=== PATIENT | female | born 1935 | race Hispanic/Latino ===

== ENCOUNTER 2017-11-06 09:01 | Emergency (ER) | payer MEDICARE ==
[~2017-11-06 09:01] MED LIST: ALBUHFA IH; ASPI-1181 PO; EZET10 PO; FLUT1AER IH; ICOS1CAP PO; LOSA100T20 PO; MELO-108 PO; METF-444 PO; OMEP20CA10 PO; POTA20TA12 PO; PRAV20TA4 PO; [UNRECOGNIZED DRUG - CODE] PO
[2017-11-06] MEDS ORDERED: CYCLOBENZAPRINE HCL 10 MG TABLET ONE (09:25)
[2017-11-06] MEDS ORDERED: HYDROCODONE/ACETAMINOPHEN 5/325 MG TAB ONE (09:26)
== END 2017-11-06 12:43 | disposition home or self-care (01) ==
LOC: EDH 09:01
DX: M79.1 Myalgia (principal); M54.9 Dorsalgia, unspecified; E11.9 Type 2 diabetes mellitus without complications; E78.5 Hyperlipidemia, unspecified; I10 Essential (primary) hypertension
CPT/HCPCS: 71045

== ENCOUNTER → 2017-12-23 | Outpatient (CLI) | payer MEDICARE | END | disposition home or self-care (01) | LOC: RAH 11:57 | PROVIDERS: ATTEND Family Medicine | DX: M47.896 Other spondylosis, lumbar region (principal); I70.0 Atherosclerosis of aorta; K21.9 Gastro-esophageal reflux disease without esophagitis; Z90.49 Acquired absence of other specified parts of digestive tract | CPT/HCPCS: 72100 ==

== ENCOUNTER 2018-01-20 08:13 | Emergency (ER) | payer MEDICARE ==
[2018-01-20] MEDS ORDERED: CEFTRIAXONE SODIUM 1 GM ONE (08:50)
[2018-01-20] MEDS ORDERED: DEXAMETHASONE SOD PHOSPHATE 10MG/ML 1ML VIAL ONE (08:50)
[2018-01-20] MEDS ORDERED: SODIUM CHLORIDE 0.9% 1000ML 1,000 ML IV ONE (08:50)
[2018-01-20] MEDS ORDERED: SODIUM CHLORIDE 0.9% 50 ML IV ONE (08:51)
[2018-01-20] MEDS ORDERED: IPRATROPIUM/ALBUTEROL SULFATE 3 ML SOLUTION IH ONE (09:11)
[2018-01-20 09:13] LABS: BASOPHILS % (AUTO) 0.4 % (0.0-5.0); EOSINOPHILS % (AUTO) 2.5 % (0.0-8.0); HEMATOCRIT 44.7 % (36-48); LYMPHOCYTES % (AUTO) 35.6 % (21.0-51.0); MEAN CORPUSCULAR HEMOGLOBIN 32.1 pg (27.0-33.0); MEAN CORPUSCULAR HGB CONC 33.2 g/dL (32.0-36.0); MEAN CORPUSCULAR VOLUME 96.9 fL (79-99); MONOCYTES % (AUTO) 8.6 % (3.0-13.0); NEUTROPHILS % (AUTO) 52.9 % (40.0-77.0); NUCLEATED RED BLOOD CELLS 0.1 % (0.0-0.19); PLATELET COUNT (AUTO) 222 K/uL (130-400); RED BLOOD CELL COUNT(AUTO) 4.62 MIL/uL (4.00-5.50); RED CELL DISTRIBUTION WIDTH 13.8 % (11.0-15.5); WHITE BLOOD COUNT (AUTO) 5.9 K/uL (4.8-10.8)
[2018-01-20 09:21] LABS: POTASSIUM 3.5 mmol/L (3.5-5.1)
[2018-01-20 09:25] LABS: ALBUMIN 4.2 g/dL (3.5-5.0); BILIRUBIN,DIRECT 0.1 mg/dL (0.0-0.3); BILIRUBIN,TOTAL 0.4 mg/dL (0.2-1.0); TOTAL PROTEIN, SERUM 8.3 g/dL (6.0-8.3)
== END 2018-01-20 10:51 | disposition home or self-care (01) ==
LOC: EDH 08:13
DX: J20.9 Acute bronchitis, unspecified (principal); I10 Essential (primary) hypertension; E11.9 Type 2 diabetes mellitus without complications; E78.5 Hyperlipidemia, unspecified; Z90.49 Acquired absence of other specified parts of digestive tract; Z95.0 Presence of cardiac pacemaker
CPT/HCPCS: 36415; 71046; 80048; 80076; 82550; 84484; 85025; 87804 ×2; 93005; 94640; 96374; 96375; 99284; J0696; J1100; J7030

== ENCOUNTER 2018-03-20 08:26 | Emergency (ER) | payer MEDICARE ==
[~2018-03-20 08:26] MED LIST changes: -LOSA100T20 PO; +LOSA100T58 PO
[2018-03-20 09:10] LABS: EOSINOPHILS % (AUTO) 4.4 % (0.0-8.0); HEMATOCRIT 39.7 % (36-48); LYMPHOCYTES % (AUTO) 35.1 % (21.0-51.0); MEAN CORPUSCULAR HEMOGLOBIN 32.7 pg (27.0-33.0); NEUTROPHILS % (AUTO) 48.5 % (40.0-77.0); PLATELET COUNT (AUTO) 157 K/uL (130-400); RED BLOOD CELL COUNT(AUTO) 4.14 MIL/uL (4.00-5.50); RED CELL DISTRIBUTION WIDTH 14.1 % (11.0-15.5); WHITE BLOOD COUNT (AUTO) 3.5 K/uL (4.8-10.8)
[2018-03-20 09:22] LABS: INR 0.95 (0.85-1.15); PARTIAL THROMBOPLASTIN TIME 26.4 SEC (26.3-35.5)
[2018-03-20 09:35] LABS: CREATININE 0.9 mg/dL (0.5-1.5); POTASSIUM 3.6 mmol/L (3.5-5.1)
[2018-03-20 09:46] LABS: ALBUMIN 3.7 g/dL (3.5-5.0); BILIRUBIN,TOTAL 0.6 mg/dL (0.2-1.0); TOTAL PROTEIN, SERUM 7.3 g/dL (6.0-8.3)
[2018-03-20] MEDS ORDERED: CLONIDINE HCL 0.1 MG TABLET ONE (09:49)
== END 2018-03-20 10:26 | disposition home or self-care (01) ==
LOC: EDH 08:26
DX: R07.89 Other chest pain (principal); E11.9 Type 2 diabetes mellitus without complications; E78.5 Hyperlipidemia, unspecified; I10 Essential (primary) hypertension; Z95.0 Presence of cardiac pacemaker
CPT/HCPCS: 36415; 71045; 80053; 83874; 84484; 85025; 85610; 85730; 93005

== ENCOUNTER 2018-04-15 07:00 | Observation (INO) | payer MEDICARE ==
[2018-04-13 12:11] VITALS: BP 146/72
[2018-04-13 12:25] LABS: BASOPHILS % (AUTO) 0.4 % (0.0-5.0); EOSINOPHILS % (AUTO) 2.2 % (0.0-8.0); HEMATOCRIT 39.6 % (36-48); LYMPHOCYTES % (AUTO) 29.8 % (21.0-51.0); MEAN CORPUSCULAR HEMOGLOBIN 32.2 pg (27.0-33.0); MEAN CORPUSCULAR HGB CONC 33.1 g/dL (32.0-36.0); MEAN CORPUSCULAR VOLUME 97.5 fL (79-99); MONOCYTES % (AUTO) 9.6 % (3.0-13.0); PLATELET COUNT (AUTO) 162 K/uL (130-400); RED BLOOD CELL COUNT(AUTO) 4.07 MIL/uL (4.00-5.50); WHITE BLOOD COUNT (AUTO) 5.2 K/uL (4.8-10.8)
[2018-04-13 12:27] LABS: POTASSIUM 4.3 mmol/L (3.5-5.1)
[2018-04-13 12:31] LABS: INR 0.96 (0.85-1.15); PARTIAL THROMBOPLASTIN TIME 27.1 SEC (26.3-35.5); PROTHROMBIN TIME 10.1 SEC (9.6-11.6)
[~2018-04-15] VITALS: Ht 154.9 cm; Wt 49.9 kg
[2018-04-15] VITALS (12 sets, daily range): BP systolic 115–170; BP diastolic 55–70
[~2018-04-15 07:00] MED LIST changes: -ALBUHFA IH; +AMLO5TAB9 PO; +CEFAZOLIN SODIUM 1 GM VIAL IVP SCH; -FLUT1AER IH; -ICOS1CAP PO; +MAGN400T40 PO; +PIOG30TA70 PO; +POTA-79 PO; -POTA20TA12 PO; -PRAV20TA4 PO; -[UNRECOGNIZED DRUG - CODE] PO
[2018-04-15] MEDS: SODIUM CHLORIDE 0.9% 1000ML 1,000 ML IV SCH ×2 (07:50→16:08)
--- NOTE | 2018-04-15 11:01 | NUR ---
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
[2018-04-15] MEDS ORDERED: CEFAZOLIN SODIUM 1 GM VIAL ONE (11:30)
[2018-04-15] MEDS ORDERED: LIDOCAINE HCL 1% MDV 50ML VIAL ONE (11:31)
[2018-04-15] MEDS ORDERED: BUPIVACAINE/PF 0.25% 30ML VIAL IJ ONE (11:36)
[2018-04-15] MEDS ORDERED: MIDAZOLAM HCL 1 MG/ML 2ML VIAL ONE (11:46)
[2018-04-15] MEDS ORDERED: MEPERIDINE-PF 25 MG/ML SYG ONE (11:47)
[2018-04-15] MEDS ORDERED: IODIXANOL 320 MG/ML 100 ML VIAL ONE (12:12)
[2018-04-15] MEDS ORDERED: ACETAMINOPHEN-CODEINE 300/30MG TAB PO PRN ×2 (13:00)
[2018-04-15] MEDS ORDERED: ACETAMINOPHEN 325 MG TAB PO PRN (13:00)
--- NOTE | 2018-04-15 14:30 | NUR ---
REPORT REPORT GIVEN PAM [place]. NO BLEEDING, NO HEMATOMA TO RIGHT UPPER CHEST.
[2018-04-15] MEDS: METFORMIN HCL 500 MG TABLET PO SCH (17:07)
--- NOTE | 2018-04-15 19:25 | NUR ---
Received bedside report ,pt S/P lead revision to PPM to right upper chest.Arm sling to right arm in place and pt. made aware of right arm mobility precautions and demonstrated understanding.Pt. denies chestpain or any discomfort.
[2018-04-15] MEDS ORDERED: EZETIMIBE 10 MG TAB PO SCH (21:00)
[2018-04-15] MEDS ORDERED: ASPIRIN 81 MG EC TAB PO SCH (21:00)
[2018-04-16 03:29] VITALS: BP 126/59
[2018-04-16 07:00] VITALS: BP 136/66
--- NOTE | 2018-04-16 07:19 | NUR ---
Dr. Lucero here and saw pt. ,he said pt. is going to have PPM interrogation today prior to discharge.No new order received.
[2018-04-16] MEDS: METFORMIN HCL 500 MG TABLET PO SCH (08:22)
[2018-04-16] MEDS ORDERED: PANTOPRAZOLE SODIUM 40 MG TABLET.DR PO SCH (09:00)
[2018-04-16] MEDS ORDERED: LOSARTAN 100 MG TABLET PO SCH (09:00)
[2018-04-16] MEDS ORDERED: MELOXICAM 7.5 MG TABLET PO SCH (09:00)
[2018-04-16] MEDS ORDERED: PIOGLITAZONE HCL 30 MG TAB PO SCH (09:00)
[2018-04-16] MEDS ORDERED: POTASSIUM CHLORIDE 20 MEQ ERTAB PO SCH (09:00)
[2018-04-16] MEDS ORDERED: AMLODIPINE BESYLATE 5 MG TAB PO SCH (09:00)
[2018-04-16] MEDS ORDERED: MAGNESIUM OXIDE 400 MG TABLET PO SCH (09:00)
== END 2018-04-16 11:20 | disposition home or self-care (01) ==
LOC: DAH 07:00 → DAHIP 07:01 → 2AH 15:04
PROVIDERS: ADMIT Internal Medicine; ATTEND Internal Medicine
DX: I44.30 Unspecified atrioventricular block (principal); E11.9 Type 2 diabetes mellitus without complications; E78.5 Hyperlipidemia, unspecified; I10 Essential (primary) hypertension; I25.10 Atherosclerotic heart disease of native coronary artery without angina pectoris; I49.5 Sick sinus syndrome; J44.9 Chronic obstructive pulmonary disease, unspecified; Z82.0 Family history of epilepsy and other diseases of the nervous system; Z82.3 Family history of stroke; Z82.49 Family history of ischemic heart disease and other diseases of the circulatory system; Z82.5 Family history of asthma and other chronic lower respiratory diseases; Z83.3 Family history of diabetes mellitus; Z95.0 Presence of cardiac pacemaker; Z79.01 Long term (current) use of anticoagulants
CPT/HCPCS: 33216; 36415; 71045; 80048; 82948 ×6; 85025; 85610; 85730; 93005; A4606; C1898; G0378 ×28; J0690; J2175; J2250; J3490 ×2; J7030; 99156; 99157; Q9967

== ENCOUNTER 2018-07-22 09:17 | Emergency (ER) | payer MEDICARE ==
[~2018-07-22 09:17] MED LIST changes: -CEFAZOLIN SODIUM 1 GM VIAL IVP SCH
[2018-07-22] MEDS ORDERED: SODIUM CHLORIDE 0.9% 1000ML 1,000 ML IV ONE (09:30)
[2018-07-22 09:56] LABS: BASOPHILS % (AUTO) 0.4 % (0.0-5.0); BILIRUBIN,URINE NEGATIVE (NEGATIVE); COLOR,URINE YELLOW (YELLOW); EOSINOPHILS % (AUTO) 1.2 % (0.0-8.0); GLUCOSE, URINE (UA) NEGATIVE (NEGATIVE); KETONES,URINE NEGATIVE (NEGATIVE); LEUKOCYTE ESTERASE ,URINE LARGE (NEGATIVE); LYMPHOCYTES % (AUTO) 16.8 % (21.0-51.0); MEAN CORPUSCULAR HEMOGLOBIN 34.3 pg (27.0-33.0); MEAN CORPUSCULAR HGB CONC 35.2 g/dL (32.0-36.0); MEAN CORPUSCULAR VOLUME 97.5 fL (79-99); MONOCYTES % (AUTO) 9.5 % (3.0-13.0); NEUTROPHILS % (AUTO) 72.1 % (40.0-77.0); NITRATE,URINE NEGATIVE (NEGATIVE); NUCLEATED RED BLOOD CELLS 0.1 % (0.0-0.19); OCCULT BLOOD,URINE MODERATE (NEGATIVE); PH,URINE 5.5 (5.0-8.0); PLATELET COUNT (AUTO) 166 K/uL (130-400); PROTEIN,URINE 30 mg/dL (NEGATIVE); RED BLOOD CELL COUNT(AUTO) 4.21 MIL/uL (4.00-5.50); RED CELL DISTRIBUTION WIDTH 13.5 % (11.0-15.5); UROBILINOGEN,URINE 0.2 mg/dL (0.2-1.0); WHITE BLOOD COUNT (AUTO) 7.7 K/uL (4.8-10.8)
[2018-07-22 10:02] LABS: CREATININE 1.1 mg/dL (0.5-1.5); POTASSIUM 3.6 mmol/L (3.5-5.1)
[2018-07-22 10:07] LABS: ALBUMIN 3.8 g/dL (3.5-5.0); APPEARANCE,URINE CLOUDY (CLEAR); BILIRUBIN,TOTAL 0.9 mg/dL (0.2-1.0)
[2018-07-22 10:08] LABS: WBC,URINE 26-50 /HPF (0-1)
[2018-07-22 10:09] LABS: BACTERIA,URINE Moderate /HPF (None Seen); SQUAMOUS EPITHELIAL CELL,UR 0-2 /HPF (0-2)
[2018-07-22] MEDS ORDERED: CEFTRIAXONE SODIUM 1 GM ONE (10:54)
== END 2018-07-22 12:27 | disposition home or self-care (01) ==
LOC: EDH 09:17
DX: N30.00 Acute cystitis without hematuria (principal); E86.0 Dehydration; E11.9 Type 2 diabetes mellitus without complications; I10 Essential (primary) hypertension; E78.5 Hyperlipidemia, unspecified; Z95.0 Presence of cardiac pacemaker
CPT/HCPCS: 36415; 80053; 81001; 83605; 85025; 87077; 87088; 87186; 96361; 96374; 99285; J0696; J7030

== ENCOUNTER 2018-12-13 15:59 | Emergency (ER) | payer MEDICARE ==
[~2018-12-13 15:59] MED LIST changes: -EZET10 PO; +EZET10TA13 PO; +OMEP-50 PO; -OMEP20CA10 PO
[2018-12-13] MEDS ORDERED: ALBUTEROL SULFATE 0.083% 2.5 MG/3 ML INH IH ONE (16:32)
[2018-12-13 17:06] LABS: BASOPHILS % (AUTO) 0.2 % (0.0-5.0); EOSINOPHILS % (AUTO) 0.3 % (0.0-8.0); LYMPHOCYTES % (AUTO) 10.3 % (21.0-51.0); MEAN CORPUSCULAR HEMOGLOBIN 33.3 pg (27.0-33.0); MEAN CORPUSCULAR HGB CONC 34.4 g/dL (32.0-36.0); MEAN CORPUSCULAR VOLUME 96.8 fL (79-99); MONOCYTES % (AUTO) 3.1 % (3.0-13.0); NEUTROPHILS % (AUTO) 86.1 % (40.0-77.0); NUCLEATED RED BLOOD CELLS 0.1 % (0.0-0.19); PLATELET COUNT (AUTO) 184 K/uL (130-400); RED BLOOD CELL COUNT(AUTO) 4.14 MIL/uL (4.00-5.50); RED CELL DISTRIBUTION WIDTH 14.4 % (11.0-15.5); WHITE BLOOD COUNT (AUTO) 7.8 K/uL (4.8-10.8)
[2018-12-13 17:12] LABS: CREATININE 1.2 mg/dL (0.5-1.5); POTASSIUM 3.8 mmol/L (3.5-5.1)
== END 2018-12-13 18:11 | disposition home or self-care (01) ==
LOC: EDH 15:59
DX: J20.8 Acute bronchitis due to other specified organisms (principal); E11.9 Type 2 diabetes mellitus without complications; I10 Essential (primary) hypertension; E78.5 Hyperlipidemia, unspecified; Z95.0 Presence of cardiac pacemaker
CPT/HCPCS: 36415; 71046; 80048; 84484; 85025; 87804; 94640; 96374

== ENCOUNTER 2018-12-23 08:17 | Inpatient (IN) | payer MEDICARE ==
[~2018-12-23] VITALS: Ht 152.4 cm; Wt 49.9 kg
[2018-12-23] MEDS ORDERED: IPRATROPIUM/ALBUTEROL SULFATE 3 ML SOLUTION IH ONE ×2 (09:08→11:32)
[2018-12-23 09:22] LABS: BASOPHILS % (AUTO) 0.3 % (0.0-5.0); HEMATOCRIT 38.1 % (36-48); LYMPHOCYTES % (AUTO) 11.1 % (21.0-51.0); MEAN CORPUSCULAR HEMOGLOBIN 32.9 pg (27.0-33.0); MEAN CORPUSCULAR HGB CONC 33.6 g/dL (32.0-36.0); MEAN CORPUSCULAR VOLUME 97.8 fL (79-99); MONOCYTES % (AUTO) 7.5 % (3.0-13.0); NEUTROPHILS % (AUTO) 81.1 % (40.0-77.0); PLATELET COUNT (AUTO) 152 K/uL (130-400); RED CELL DISTRIBUTION WIDTH 14.3 % (11.0-15.5); WHITE BLOOD COUNT (AUTO) 13.4 K/uL (4.8-10.8)
[2018-12-23 09:31] LABS: CREATININE 1.1 mg/dL (0.5-1.5); POTASSIUM 4.2 mmol/L (3.5-5.1)
[2018-12-23 09:36] LABS: ALBUMIN 3.4 g/dL (3.5-5.0); BILIRUBIN,TOTAL 0.4 mg/dL (0.2-1.0); TOTAL PROTEIN, SERUM 6.7 g/dL (6.0-8.3)
[2018-12-23] MEDS ORDERED: METHYLPREDNISOLONE SOD SUCC 125MG/2ML VIAL ONE (12:19)
[2018-12-23] MEDS ORDERED: LEVOFLOXACIN 500 MG/D5W 100 ML 100 ML ONE (16:55)
[2018-12-23 17:20] VITALS: BP 162/60
--- NOTE | 2018-12-23 17:39 | NUR ---
RT NOTIFIED ABOUT DUONED Q4 ORDER.
[2018-12-23] MEDS ORDERED: IPRATROPIUM/ALBUTEROL SULFATE 3 ML SOLUTION IH PRN (18:00)
[2018-12-23] MEDS ORDERED: AMOX500C2 PO (18:02)
[2018-12-23] MEDS ORDERED: PRAV20TA4 PO ×2 (18:02)
[2018-12-23] MEDS ORDERED: PRED20TA3 PO (18:02)
[2018-12-23] MEDS ORDERED: LOSA100T58 PO ×2 (18:02)
[2018-12-23] MEDS ORDERED: CHOL4PAC6 PO ×2 (18:02)
[2018-12-23] MEDS ORDERED: ALBU8.5H8 IH ×2 (18:02)
[2018-12-23] MEDS ORDERED: BENZ-51 PO ×2 (18:02)
[2018-12-23] MEDS: IPRATROPIUM/ALBUTEROL SULFATE 3 ML SOLUTION IH SCH ×2 (18:22→21:14)
[2018-12-23 19:00] VITALS: BP 152/65
[2018-12-23] MEDS ORDERED: NITROGLYCERIN 0.4 MG SL TAB SL PRN (19:45)
[2018-12-23] MEDS ORDERED: DEXTROSE 50%-WATER 50 ML DISP.SYRIN IV PRN (19:45)
[2018-12-23] MEDS ORDERED: POTASSIUM CHLORIDE 20MEQ/100ML 100 ML IV PRN (19:45)
[2018-12-23] MEDS ORDERED: DiphenhydrAMINE HCL 50 MG/ML VIAL IVP PRN (19:45)
[2018-12-23] MEDS ORDERED: CLONIDINE HCL 0.1 MG TABLET PO PRN (19:45)
[2018-12-23] MEDS ORDERED: GLUCAGON 1MG KIT 1 MG ML IM PRN (19:45)
[2018-12-23] MEDS ORDERED: POTASSIUM CHLORIDE 10% ELIXIR 20 MEQ/15 ML UDCUP PO PRN (19:45)
[2018-12-23] MEDS ORDERED: LIDOCAINE HCL-MPF 1% 2ML VIAL IJ PRN (19:45)
[2018-12-23] MEDS ORDERED: LACTULOSE 20 GM/30 ML UDCUP PO PRN (19:45)
[2018-12-23] MEDS ORDERED: ACETAMINOPHEN 325 MG TAB PO PRN ×2 (19:45)
[2018-12-23] MEDS ORDERED: ONDANSETRON HCL 4 MG/2 ML VIAL IVP PRN (19:45)
[2018-12-23] MEDS ORDERED: LEVOFLOXACIN 500 MG/D5W 100 ML 100 ML IV SCH (20:00)
[2018-12-23] MEDS: SODIUM CHLORIDE 0.9% 1000ML 1,000 ML IV SCH (20:09)
[2018-12-23] MEDS: METHYLPREDNISOLONE SOD SUCC 125MG/2ML VIAL IVP SCH (20:31)
[2018-12-23] MEDS: INSULIN R PO SSI SQ SCH (20:47)
[2018-12-24] VITALS (7 sets, daily range): BP systolic 131–177; BP diastolic 64–85
[2018-12-24] MEDS: IPRATROPIUM/ALBUTEROL SULFATE 3 ML SOLUTION IH SCH ×6 (01:11→21:13)
[2018-12-24] MEDS: METHYLPREDNISOLONE SOD SUCC 125MG/2ML VIAL IVP SCH ×3 (04:45→20:02)
[2018-12-24 05:58] LABS: HEMATOCRIT 36.1 % (36-48); MEAN CORPUSCULAR HEMOGLOBIN 33.3 pg (27.0-33.0); MEAN CORPUSCULAR HGB CONC 34.2 g/dL (32.0-36.0); MEAN CORPUSCULAR VOLUME 97.4 fL (79-99); PLATELET COUNT (AUTO) 150 K/uL (130-400); RED BLOOD CELL COUNT(AUTO) 3.71 MIL/uL (4.00-5.50); RED CELL DISTRIBUTION WIDTH 14.2 % (11.0-15.5)
[2018-12-24 06:03] LABS: CREATININE 1.1 mg/dL (0.5-1.5); POTASSIUM 4.4 mmol/L (3.5-5.1)
[2018-12-24] MEDS: INSULIN R PO SSI SQ SCH ×4 (06:51→20:14)
[2018-12-24] MEDS: FAMOTIDINE 20MG TAB 20 MG TAB PO SCH (09:08)
[2018-12-24] MEDS: SODIUM CHLORIDE 0.9% 1000ML 1,000 ML IV SCH ×2 (09:14→20:03)
--- NOTE | 2018-12-24 16:46 | NUR ---
D/C PLAN CM spoke to pt regarding d/c planning. Pt states she lives with spouse. Spouse can assist with ADL's as needed. Denies having any home health or DME. Plan to home. May need nebulizer at d/c. CM to f/u. Addendum: 12/24/18 at 1646 by GRAHAM GARCIA CM Amended: Links added.
[2018-12-24] MEDS ORDERED: HYDRALAZINE HCL 20 MG/ML VIAL IM PRN (17:45)
[2018-12-24] MEDS ORDERED: SODIUM CHLORIDE 3% FOR INHALATION 4 ML/AMP VIAL.NEB IH ONE (19:04)
[2018-12-24] MEDS: LEVOFLOXACIN 250 MG/D5W 50ML 50 ML IVPB SCH (20:02)
[2018-12-24] MEDS: ATORVASTATIN CALCIUM 10 MG TABLET PO SCH (20:12)
[2018-12-24] MEDS: INSULIN GLARGINE 100 UNITS/ML 10 ML VIAL SQ SCH (20:13)
[2018-12-24] MEDS ORDERED: IOHEXOL-350 50ML VIAL IV ONE (20:17)
[2018-12-25] MEDS: IPRATROPIUM/ALBUTEROL SULFATE 3 ML SOLUTION IH SCH ×6 (01:04→21:28)
[2018-12-25 03:51] VITALS: BP 152/78
[2018-12-25] MEDS: METHYLPREDNISOLONE SOD SUCC 125MG/2ML VIAL IVP SCH ×3 (04:52→21:21)
[2018-12-25] MEDS: GUAIFENESIN-CODEINE 5 ML SYRUP PO PRN ×2 (04:53→21:22)
[2018-12-25 05:06] LABS: BASOPHILS % (AUTO) 0.2 % (0.0-5.0); HEMATOCRIT 39.6 % (36-48); LYMPHOCYTES % (AUTO) 2.6 % (21.0-51.0); MEAN CORPUSCULAR HEMOGLOBIN 32.4 pg (27.0-33.0); MEAN CORPUSCULAR HGB CONC 33.6 g/dL (32.0-36.0); MEAN CORPUSCULAR VOLUME 96.6 fL (79-99); NEUTROPHILS % (AUTO) 94.2 % (40.0-77.0); PLATELET COUNT (AUTO) 151 K/uL (130-400); RED CELL DISTRIBUTION WIDTH 14.6 % (11.0-15.5); WHITE BLOOD COUNT (AUTO) 14.6 K/uL (4.8-10.8)
[2018-12-25 05:32] LABS: POTASSIUM 3.5 mmol/L (3.5-5.1)
[2018-12-25 05:39] LABS: HEMOGLOBIN A1C 6.6 % (4.0-6.0)
[2018-12-25] MEDS: INSULIN R PO SSI SQ SCH ×4 (06:27→21:29)
[2018-12-25] MEDS: POTASSIUM CHLORIDE 20 MEQ ERTAB PO PRN ×2 (06:31→12:02)
[2018-12-25 07:30] VITALS: BP 147/75
[2018-12-25] MEDS: FAMOTIDINE 20MG TAB 20 MG TAB PO SCH (09:48)
[2018-12-25] MEDS: AMLODIPINE BESYLATE 5 MG TAB PO SCH (09:48)
[2018-12-25 11:00] VITALS: BP 146/61
[2018-12-25] MEDS: SODIUM CHLORIDE 0.9% 1000ML 1,000 ML IV SCH (12:04)
[2018-12-25 16:00] VITALS: BP 138/65
[2018-12-25] MEDS: LEVOFLOXACIN 250 MG/D5W 50ML 50 ML IVPB SCH (19:51)
[2018-12-25] MEDS: ATORVASTATIN CALCIUM 10 MG TABLET PO SCH (19:52)
[2018-12-25 20:00] VITALS: BP 130/67
[2018-12-25] MEDS: INSULIN GLARGINE 100 UNITS/ML 10 ML VIAL SQ SCH (21:28)
[2018-12-25 23:55] VITALS: BP 147/70
[2018-12-26] MEDS: IPRATROPIUM/ALBUTEROL SULFATE 3 ML SOLUTION IH SCH ×4 (01:05→14:00)
[2018-12-26] MEDS: SODIUM CHLORIDE 0.9% 1000ML 1,000 ML IV SCH (01:11)
[2018-12-26] MEDS: GUAIFENESIN-CODEINE 5 ML SYRUP PO PRN (02:40)
[2018-12-26 03:33] VITALS: BP 146/75
[2018-12-26] MEDS: METHYLPREDNISOLONE SOD SUCC 125MG/2ML VIAL IVP SCH (04:37)
[2018-12-26 05:14] LABS: HEMATOCRIT 35.9 % (36-48); MEAN CORPUSCULAR HEMOGLOBIN 33.1 pg (27.0-33.0); MEAN CORPUSCULAR HGB CONC 33.8 g/dL (32.0-36.0); MEAN CORPUSCULAR VOLUME 97.9 fL (79-99); PLATELET COUNT (AUTO) 126 K/uL (130-400); RED BLOOD CELL COUNT(AUTO) 3.67 MIL/uL (4.00-5.50); RED CELL DISTRIBUTION WIDTH 14.5 % (11.0-15.5); WHITE BLOOD COUNT (AUTO) 9.4 K/uL (4.8-10.8)
[2018-12-26 05:33] LABS: CREATININE 0.9 mg/dL (0.5-1.5); POTASSIUM 3.8 mmol/L (3.5-5.1)
[2018-12-26] MEDS: INSULIN R PO SSI SQ SCH ×3 (06:22→16:30)
[2018-12-26 07:30] VITALS: BP 158/92
[2018-12-26] MEDS: FAMOTIDINE 20MG TAB 20 MG TAB PO SCH (09:42)
[2018-12-26] MEDS: AMLODIPINE BESYLATE 5 MG TAB PO SCH (09:42)
[2018-12-26 11:00] VITALS: BP 149/75
[2018-12-26] MEDS: METHYLPREDNISOLONE SOD SUCC 40MG/ML 1ML IVP SCH ×2 (14:12→14:23)
== END 2018-12-26 17:20 | disposition home or self-care (01) | DRG 202 ==
LOC: EDH 08:17 → OBSVTOIN 15:00 → EDHIP 15:00 → 3AH 17:11
PROVIDERS: ADMIT Internal Medicine; ATTEND Internal Medicine
DX: J45.901 Unspecified asthma with (acute) exacerbation (principal); J18.9 Pneumonia, unspecified organism; N18.3 Chronic kidney disease, stage 3 (moderate); I12.9 Hypertensive chronic kidney disease with stage 1 through stage 4 chronic kidney disease, or unspecified chronic kidney disease; E11.22 Type 2 diabetes mellitus with diabetic chronic kidney disease; E78.5 Hyperlipidemia, unspecified; Z95.0 Presence of cardiac pacemaker; Z90.49 Acquired absence of other specified parts of digestive tract; Z79.84 Long term (current) use of oral hypoglycemic drugs
CPT/HCPCS: 36415; 70491; 71045; 71250; 80048; 80053; 80061; 82948; 83036; 84484; 85025; 85027; 87071; 87077; 87186; 87205; 87804; 93005; 94640; 94664; G0378; J1815; J1956; J2920; J2930; Q9967

== ENCOUNTER 2018-12-28 02:49 | Emergency (ER) | payer MEDICARE ==
[~2018-12-28 02:49] MED LIST changes: +ALBU8.5H8 IH; -ASPI-1181 PO; +BENZ-51 PO; +CHOL4PAC6 PO; -MAGN400T40 PO; -MELO-108 PO; +PRAV20TA4 PO
[2018-12-28] MEDS ORDERED: IPRATROPIUM/ALBUTEROL SULFATE 3 ML SOLUTION IH ONE (03:21)
[2018-12-28 03:45] LABS: BASOPHILS % (AUTO) 0.3 % (0.0-5.0); EOSINOPHILS % (AUTO) 0.6 % (0.0-8.0); HEMATOCRIT 42.8 % (36-48); LYMPHOCYTES % (AUTO) 28.1 % (21.0-51.0); MEAN CORPUSCULAR HGB CONC 34.4 g/dL (32.0-36.0); MEAN CORPUSCULAR VOLUME 95.9 fL (79-99); MONOCYTES % (AUTO) 6.6 % (3.0-13.0); NEUTROPHILS % (AUTO) 64.4 % (40.0-77.0); NUCLEATED RED BLOOD CELLS 0.2 % (0.0-0.19); PLATELET COUNT (AUTO) 24 K/uL (130-400); RED BLOOD CELL COUNT(AUTO) 4.46 MIL/uL (4.00-5.50); RED CELL DISTRIBUTION WIDTH 14.2 % (11.0-15.5); WHITE BLOOD COUNT (AUTO) 6.7 K/uL (4.8-10.8)
[2018-12-28] MEDS ORDERED: ALBUTEROL SULFATE 0.083% 2.5 MG/3 ML INH IH ONE ×2 (03:51→04:40)
[2018-12-28 03:58] LABS: CREATININE 0.8 mg/dL (0.5-1.5); POTASSIUM 3.5 mmol/L (3.5-5.1)
[2018-12-28 04:05] LABS: B-TYPE NATRIURETIC PEPTIDE 38 pg/mL (0-100)
[2018-12-28 05:15] LABS: BASOPHILS % (AUTO) 0.4 % (0.0-5.0); EOSINOPHILS % (AUTO) 0.4 % (0.0-8.0); HEMATOCRIT 43.9 % (36-48); LYMPHOCYTES % (AUTO) 25.3 % (21.0-51.0); MEAN CORPUSCULAR HEMOGLOBIN 32.6 pg (27.0-33.0); MEAN CORPUSCULAR HGB CONC 34.1 g/dL (32.0-36.0); MEAN CORPUSCULAR VOLUME 95.7 fL (79-99); MONOCYTES % (AUTO) 7.9 % (3.0-13.0); NUCLEATED RED BLOOD CELLS 0.2 % (0.0-0.19); PLATELET COUNT (AUTO) 120 K/uL (130-400); RED BLOOD CELL COUNT(AUTO) 4.58 MIL/uL (4.00-5.50); RED CELL DISTRIBUTION WIDTH 14.1 % (11.0-15.5)
[2018-12-28] MEDS ORDERED: METHYLPREDNISOLONE SOD SUCC 40MG/ML 1ML ONE (05:44)
== END 2018-12-28 06:14 | disposition home or self-care (01) ==
LOC: EDH 02:49
DX: J45.901 Unspecified asthma with (acute) exacerbation (principal); E11.9 Type 2 diabetes mellitus without complications; E78.5 Hyperlipidemia, unspecified; I10 Essential (primary) hypertension; Z90.49 Acquired absence of other specified parts of digestive tract
CPT/HCPCS: 36415; 71046; 80048; 83880; 84484; 85025 ×2; 93005; 94640 ×3; 96372; 99285; J2920

== ENCOUNTER 2019-02-15 09:13 | Emergency (ER) | payer MEDICARE ==
[~2019-02-15 09:13] MED LIST changes: +OMEP-298 PO; -OMEP-50 PO
[2019-02-15 10:03] LABS: BASOPHILS % (AUTO) 0.5 % (0.0-5.0); HEMATOCRIT 39.1 % (36-48); LYMPHOCYTES % (AUTO) 19.7 % (21.0-51.0); MEAN CORPUSCULAR HEMOGLOBIN 31.8 pg (27.0-33.0); MEAN CORPUSCULAR HGB CONC 32.7 g/dL (32.0-36.0); MEAN CORPUSCULAR VOLUME 97.3 fL (79-99); MONOCYTES % (AUTO) 8.3 % (3.0-13.0); NEUTROPHILS % (AUTO) 69.3 % (40.0-77.0); PLATELET COUNT (AUTO) 172 K/uL (130-400); RED BLOOD CELL COUNT(AUTO) 4.02 MIL/uL (4.00-5.50); RED CELL DISTRIBUTION WIDTH 14.1 % (11.0-15.5); WHITE BLOOD COUNT (AUTO) 6.5 K/uL (4.8-10.8)
[2019-02-15] MEDS ORDERED: IPRATROPIUM/ALBUTEROL SULFATE 3 ML SOLUTION IH ONE ×2 (10:13→12:48)
[2019-02-15] MEDS ORDERED: METHYLPREDNISOLONE SOD SUCC 125MG/2ML VIAL ONE (10:22)
[2019-02-15 10:32] LABS: CREATININE 0.8 mg/dL (0.5-1.5); POTASSIUM 3.7 mmol/L (3.5-5.1)
[2019-02-15 10:37] LABS: BILIRUBIN,TOTAL 0.5 mg/dL (0.2-1.0); TOTAL PROTEIN, SERUM 6.9 g/dL (6.0-8.3)
[2019-02-15 10:45] LABS: INR 0.95 (0.85-1.15); PARTIAL THROMBOPLASTIN TIME 25.6 SEC (26.3-35.5)
[2019-02-15 10:54] LABS: B-TYPE NATRIURETIC PEPTIDE 51 pg/mL (0-100)
== END 2019-02-15 13:44 | disposition home or self-care (01) ==
LOC: EDH 09:13
DX: J45.41 Moderate persistent asthma with (acute) exacerbation (principal); E11.9 Type 2 diabetes mellitus without complications; I10 Essential (primary) hypertension; E78.5 Hyperlipidemia, unspecified; Z90.49 Acquired absence of other specified parts of digestive tract; Z98.890 Other specified postprocedural states
CPT/HCPCS: 36415; 71045; 80053; 82550; 83880; 84484; 85025; 85610; 85730; 87804 ×2; 93005; 94640 ×2; 96374; 99285; J2930

== ENCOUNTER 2019-04-02 03:20 | Emergency (ER) | payer OTHER, MEDICARE ==
[~2019-04-02 03:20] MED LIST changes: -OMEP-298 PO; +OMEP20CA12 PO
[2019-04-02] MEDS ORDERED: IPRATROPIUM/ALBUTEROL SULFATE 3 ML SOLUTION IH ONE ×2 (04:14→05:37)
[2019-04-02 04:19] LABS: BASOPHILS % (AUTO) 0.3 % (0.0-5.0); EOSINOPHILS % (AUTO) 0.5 % (0.0-8.0); HEMATOCRIT 40.3 % (36-48); LYMPHOCYTES % (AUTO) 22.8 % (21.0-51.0); MEAN CORPUSCULAR HEMOGLOBIN 31.7 pg (27.0-33.0); MONOCYTES % (AUTO) 11.1 % (3.0-13.0); NEUTROPHILS % (AUTO) 64.3 % (40.0-77.0); PLATELET COUNT (AUTO) 156 K/uL (130-400); RED CELL DISTRIBUTION WIDTH 13.3 % (11.0-15.5); WHITE BLOOD COUNT (AUTO) 7.8 K/uL (4.8-10.8)
[2019-04-02 04:38] LABS: ALBUMIN 2.6 g/dL (3.5-5.0); BILIRUBIN,TOTAL 0.2 mg/dL (0.2-1.0); CREATININE 0.5 mg/dL (0.5-1.5); TOTAL PROTEIN, SERUM 4.7 g/dL (6.0-8.3)
[2019-04-02 04:40] LABS: B-TYPE NATRIURETIC PEPTIDE 47 pg/mL (0-100); POTASSIUM 2.9 mmol/L (3.5-5.1)
[2019-04-02] MEDS ORDERED: METHYLPREDNISOLONE SOD SUCC 40MG/ML 1ML ONE (05:06)
[2019-04-02] MEDS ORDERED: POTASSIUM CHLORIDE 20 MEQ ERTAB PO ONE (05:07)
[2019-04-02] MEDS ORDERED: BENZONATATE 100 MG CAPSULE PO ONE (06:02)
== END 2019-04-02 07:07 | disposition home or self-care (01) ==
LOC: EDH 03:20
DX: J45.21 Mild intermittent asthma with (acute) exacerbation (principal); E11.9 Type 2 diabetes mellitus without complications; E78.5 Hyperlipidemia, unspecified; I10 Essential (primary) hypertension; Z90.49 Acquired absence of other specified parts of digestive tract
CPT/HCPCS: 36415; 71046; 80053; 82550; 83880; 84484; 85025; 87804 ×2; 93005; 94640 ×2; 96374; 99285; J2920

== ENCOUNTER → 2019-04-19 | Outpatient (CLI) | payer OTHER, MEDICARE | END | disposition home or self-care (01) | LOC: RAH 08:59 | PROVIDERS: ATTEND Family Medicine | DX: K21.9 Gastro-esophageal reflux disease without esophagitis (principal); K57.10 Diverticulosis of small intestine without perforation or abscess without bleeding | CPT/HCPCS: 74240 ==

== ENCOUNTER 2020-03-08 00:03 | Emergency (ER) | payer OTHER, MEDICARE ==
[~2020-03-08 00:03] MED LIST changes: +AMLO-257 PO; -AMLO5TAB9 PO; -BENZ-51 PO; +BENZ-70 PO
[2020-03-08 00:36] LABS: BASOPHILS % (AUTO) 0.4 % (0.0-5.0); EOSINOPHILS % (AUTO) 2.6 % (0.0-8.0); LYMPHOCYTES % (AUTO) 23.3 % (21.0-51.0); MEAN CORPUSCULAR VOLUME 94.3 fL (79-99); MONOCYTES % (AUTO) 9.3 % (3.0-13.0); PLATELET COUNT (AUTO) 242 K/uL (130-400); RED BLOOD CELL COUNT(AUTO) 4.56 MIL/uL (4.00-5.50); RED CELL DISTRIBUTION WIDTH 13.2 % (11.0-15.5); WHITE BLOOD COUNT (AUTO) 9.8 K/uL (4.8-10.8)
[2020-03-08 00:53] LABS: CREATININE 0.9 mg/dL (0.5-1.5); POTASSIUM 3.9 mmol/L (3.5-5.1)
[2020-03-08 00:58] LABS: BILIRUBIN,TOTAL 0.3 mg/dL (0.2-1.0); TOTAL PROTEIN, SERUM 7.8 g/dL (6.0-8.3)
== END 2020-03-08 04:45 | disposition home or self-care (01) ==
LOC: EDH 00:03
DX: I10 Essential (primary) hypertension (principal); F41.1 Generalized anxiety disorder; J45.909 Unspecified asthma, uncomplicated; E11.9 Type 2 diabetes mellitus without complications; E78.5 Hyperlipidemia, unspecified; Z90.49 Acquired absence of other specified parts of digestive tract
CPT/HCPCS: 71045; 93005

== ENCOUNTER 2020-05-28 00:10 | Emergency (ER) | payer OTHER, MEDICARE ==
[~2020-05-28 00:10] MED LIST changes: +BENZ-51 PO; -BENZ-70 PO
[2020-05-28 00:32] LABS: BASOPHILS % (AUTO) 0.3 % (0.0-5.0); EOSINOPHILS % (AUTO) 3.1 % (0.0-8.0); HEMATOCRIT 39.4 % (36-48); LYMPHOCYTES % (AUTO) 34.2 % (21.0-51.0); MEAN CORPUSCULAR HEMOGLOBIN 32.3 pg (27.0-33.0); MEAN CORPUSCULAR HGB CONC 33.5 g/dL (32.0-36.0); MEAN CORPUSCULAR VOLUME 96.3 fL (79-99); MONOCYTES % (AUTO) 9.9 % (3.0-13.0); NEUTROPHILS % (AUTO) 52.3 % (40.0-77.0); PLATELET COUNT (AUTO) 209 K/uL (130-400); RED BLOOD CELL COUNT(AUTO) 4.09 MIL/uL (4.00-5.50); RED CELL DISTRIBUTION WIDTH 13.8 % (11.0-15.5); WHITE BLOOD COUNT (AUTO) 6.6 K/uL (4.8-10.8)
[2020-05-28 00:57] LABS: ALBUMIN 3.8 g/dL (3.5-5.0); BILIRUBIN,TOTAL 0.4 mg/dL (0.2-1.0); CREATININE 0.9 mg/dL (0.5-1.5); POTASSIUM 4.1 mmol/L (3.5-5.1); TOTAL PROTEIN, SERUM 7.5 g/dL (6.0-8.3)
[2020-05-28] MEDS ORDERED: MECLIZINE HCL 25 MG TABLET ONE (01:37)
== END 2020-05-28 05:28 | disposition home or self-care (01) ==
LOC: EDH 00:10
DX: H81.393 Other peripheral vertigo, bilateral (principal); I10 Essential (primary) hypertension; E78.5 Hyperlipidemia, unspecified; E11.9 Type 2 diabetes mellitus without complications; J45.909 Unspecified asthma, uncomplicated
CPT/HCPCS: 36415; 80053; 83880; 84484; 85025; 93005

== ENCOUNTER → 2020-06-18 | Outpatient (CLI) | payer OTHER, MEDICARE ==
[~2020-06-18] MED LIST changes: -BENZ-51 PO; +BENZ-70 PO
== END | disposition home or self-care (01) ==
LOC: RAH 08:35
PROVIDERS: ATTEND Family Medicine
DX: I08.1 Rheumatic disorders of both mitral and tricuspid valves (principal); I31.3 Pericardial effusion (noninflammatory); E11.9 Type 2 diabetes mellitus without complications; R55 Syncope and collapse
CPT/HCPCS: 93306

== ENCOUNTER → 2020-07-05 | Outpatient (CLI) | payer OTHER, MEDICARE | END | disposition home or self-care (01) | LOC: RAH 14:45 | PROVIDERS: ATTEND Family Medicine | DX: Z12.31 Encounter for screening mammogram for malignant neoplasm of breast (principal) | CPT/HCPCS: 77067 ==

== ENCOUNTER 2020-12-03 10:15 | Emergency (ER) | payer OTHER, MEDICARE ==
[~2020-12-03] VITALS: Ht 149.9 cm; Wt 47.6 kg
[2020-12-03 10:53] LABS: BASOPHILS % (AUTO) 0.1 % (0.0-5.0); EOSINOPHILS % (AUTO) 0.5 % (0.0-8.0); MEAN CORPUSCULAR HEMOGLOBIN 32.1 pg (27.0-33.0); MEAN CORPUSCULAR HGB CONC 34.8 g/dL (32.0-36.0); MEAN CORPUSCULAR VOLUME 92.4 fL (79-99); MONOCYTES % (AUTO) 5.1 % (3.0-13.0); NEUTROPHILS % (AUTO) 78.9 % (40.0-77.0); PLATELET COUNT (AUTO) 184 K/uL (130-400); RED BLOOD CELL COUNT(AUTO) 4.33 MIL/uL (4.00-5.50); RED CELL DISTRIBUTION WIDTH 12.9 % (11.0-15.5); WHITE BLOOD COUNT (AUTO) 7.5 K/uL (4.8-10.8)
[2020-12-03] MEDS: HYDRALAZINE 20MG/ML VIAL IV SCH ×2 (11:16→13:17)
[2020-12-03 11:17] LABS: CREATININE 0.8 mg/dL (0.5-1.5); POTASSIUM 3.3 mmol/L (3.5-5.1)
[2020-12-03] MEDS ORDERED: ONDANSETRON 4MG INJ IVP ONE (11:30)
[2020-12-03 11:31] LABS: ALBUMIN 3.9 g/dL (3.5-5.0); BILIRUBIN,TOTAL 0.5 mg/dL (0.2-1.0); TOTAL PROTEIN, SERUM 7.7 g/dL (6.0-8.3)
[2020-12-03 11:37] LABS: APPEARANCE,URINE Clear (CLEAR); BILIRUBIN,URINE Negative (NEGATIVE); COLOR,URINE Yellow (YELLOW); GLUCOSE, URINE (UA) TRACE mg/dL (NEGATIVE); KETONES,URINE 15 mg/dL (NEGATIVE); LEUKOCYTE ESTERASE ,URINE Negative (NEGATIVE); NITRATE,URINE Negative (NEGATIVE); OCCULT BLOOD,URINE Negative (NEGATIVE); PH,URINE 8.5 (5.0-8.0); PROTEIN,URINE POS 1+ mg/dL (NEGATIVE); UROBILINOGEN,URINE 0.2 mg/dL (0.2-1.0)
[2020-12-03 11:50] LABS: B-TYPE NATRIURETIC PEPTIDE 138 pg/mL (0-100)
[2020-12-03 11:58] LABS: BACTERIA,URINE Rare /HPF (None Seen); RBC,URINE 0-1 /HPF (0-1); SQUAMOUS EPITHELIAL CELL,UR Rare /HPF (0-2); WBC,URINE 0-1 /HPF (0-1)
[2020-12-03] MEDS ORDERED: IOHEXOL 350 MG/ML 100ML INFUS..BTL IV ONE (12:21)
[2020-12-03 12:40] LABS: PROTHROMBIN TIME 10.9 SEC (9.6-11.6)
[2020-12-03] MEDS ORDERED: MECLIZINE HCL 25 MG TABLET ONE (13:14)
[2020-12-03] MEDS ORDERED: HYDRALAZINE 20MG/ML VIAL IV SCH (13:30)
[2020-12-03] MEDS ORDERED: MECLIZINE HCL 25 MG TABLET PO ONE (13:30)
[2020-12-03 14:19] VITALS: BP 129/59
== END 2020-12-03 14:40 | disposition home or self-care (01) ==
LOC: EDH 10:15
DX: H81.399 Other peripheral vertigo, unspecified ear (principal); E11.9 Type 2 diabetes mellitus without complications; I10 Essential (primary) hypertension; I25.10 Atherosclerotic heart disease of native coronary artery without angina pectoris; J44.9 Chronic obstructive pulmonary disease, unspecified; Z79.84 Long term (current) use of oral hypoglycemic drugs; Z79.899 Other long term (current) drug therapy
CPT/HCPCS: 36415; 70450; 70496; 70498; 71045; 80053; 81001; 82550; 82948; 83721; 83880; 84484; 85025; 85610; 85730; 93005; 96374; 96375; 99291; J0360; J2405; Q9967

== ENCOUNTER → 2021-07-07 | Outpatient (CLI) | payer OTHER, MEDICARE | END | disposition home or self-care (01) | LOC: RAH 11:44 | PROVIDERS: ATTEND Family Medicine | DX: Z12.31 Encounter for screening mammogram for malignant neoplasm of breast (principal) | CPT/HCPCS: 77067 ==

== ENCOUNTER 2021-07-15 16:50 | Emergency (ER) | payer OTHER, MEDICARE ==
[~2021-07-15] VITALS: Ht 149.9 cm; Wt 49.4 kg
[2021-07-15 17:22] LABS: BASOPHILS % (AUTO) 0.5 % (0.0-5.0); EOSINOPHILS % (AUTO) 2.1 % (0.0-8.0); HEMATOCRIT 44.4 % (36-48); LYMPHOCYTES % (AUTO) 31.2 % (21.0-51.0); MEAN CORPUSCULAR HGB CONC 33.3 g/dL (32.0-36.0); MEAN CORPUSCULAR VOLUME 93.1 fL (79-99); NEUTROPHILS % (AUTO) 55.9 % (40.0-77.0); PLATELET COUNT (AUTO) 213 K/uL (130-400); RED BLOOD CELL COUNT(AUTO) 4.77 MIL/uL (4.00-5.50); RED CELL DISTRIBUTION WIDTH 13.1 % (11.0-15.5); WHITE BLOOD COUNT (AUTO) 6.2 K/uL (4.8-10.8)
[2021-07-15] MEDS ORDERED: NIFEDIPINE 10 MG CAP PO ONE (17:30)
[2021-07-15 17:39] LABS: CREATININE 0.9 mg/dL (0.5-1.5); POTASSIUM 4.1 mmol/L (3.5-5.1)
[2021-07-15 17:46] LABS: ALBUMIN 4.4 g/dL (3.5-5.0); BILIRUBIN,TOTAL 0.3 mg/dL (0.2-1.0); TOTAL PROTEIN, SERUM 8.1 g/dL (6.0-8.3)
[2021-07-15 18:01] VITALS: BP 119/52
[2021-07-15 18:16] LABS: APPEARANCE,URINE Clear (CLEAR); BILIRUBIN,URINE Negative (NEGATIVE); COLOR,URINE Yellow (YELLOW); GLUCOSE, URINE (UA) Negative (NEGATIVE); KETONES,URINE Negative (NEGATIVE); LEUKOCYTE ESTERASE ,URINE Trace (NEGATIVE); NITRATE,URINE Negative (NEGATIVE); OCCULT BLOOD,URINE Negative (NEGATIVE); PH,URINE 7.5 (5.0-8.0); PROTEIN,URINE Negative (NEGATIVE); UROBILINOGEN,URINE 0.2 mg/dL (0.2-1.0)
[2021-07-15 18:43] LABS: BACTERIA,URINE Rare /HPF (None Seen); RBC,URINE None Seen /HPF (0-1); SQUAMOUS EPITHELIAL CELL,UR 0-2 /HPF (0-2); WBC,URINE 0-1 /HPF (0-1)
== END 2021-07-15 20:21 | disposition home or self-care (01) ==
LOC: EDH 16:50
DX: I11.9 Hypertensive heart disease without heart failure (principal); I25.10 Atherosclerotic heart disease of native coronary artery without angina pectoris; E11.9 Type 2 diabetes mellitus without complications; Z90.49 Acquired absence of other specified parts of digestive tract; Z79.899 Other long term (current) drug therapy
CPT/HCPCS: 36415; 71045; 80053; 81001; 84484; 85025; 93005

== ENCOUNTER 2022-02-05 13:19 | Emergency (ER) | payer OTHER, MEDICARE ==
[~2022-02-05] VITALS: Ht 157.5 cm; Wt 49.9 kg
[2022-02-05 14:13] LABS: HEMATOCRIT 44.6 % (36-48); MEAN CORPUSCULAR HEMOGLOBIN 32.4 pg (27.0-33.0); MEAN CORPUSCULAR HGB CONC 33.4 g/dL (32.0-36.0); PLATELET COUNT (AUTO) 188 K/uL (130-400); RED CELL DISTRIBUTION WIDTH 13.3 % (11.0-15.5)
[2022-02-05 14:25] LABS: BASOPHILS % (AUTO) 0.3 % (0.0-5.0); EOSINOPHILS % (AUTO) 1.6 % (0.0-8.0); LYMPHOCYTES % (AUTO) 14.9 % (21.0-51.0); MONOCYTES % (AUTO) 7.8 % (3.0-13.0); NEUTROPHILS % (AUTO) 75.1 % (40.0-77.0)
[2022-02-05 14:27] LABS: CREATININE 0.9 mg/dL (0.5-1.5); POTASSIUM 3.3 mmol/L (3.5-5.1)
[2022-02-05 14:30] LABS: ALBUMIN 4.1 g/dL (3.5-5.0); TOTAL PROTEIN, SERUM 7.7 g/dL (6.0-8.3)
[2022-02-05 14:38] LABS: APPEARANCE,URINE CLEAR (CLEAR); BILIRUBIN,URINE NEGATIVE (NEGATIVE); COLOR,URINE LIGHT-YELLOW (YELLOW); GLUCOSE, URINE (UA) >=1000 mg/dL (NEGATIVE); KETONES,URINE NEGATIVE (NEGATIVE); LEUKOCYTE ESTERASE ,URINE 75 Leu/uL (NEGATIVE); NITRATE,URINE NEGATIVE (NEGATIVE); OCCULT BLOOD,URINE NEGATIVE (NEGATIVE); PROTEIN,URINE NEGATIVE (NEGATIVE); UROBILINOGEN,URINE 0.2 mg/dL (0.2-1.0)
[2022-02-05 14:44] LABS: MUCUS,URINE RARE LPF (None Seen); RBC,URINE 0-1 /HPF (0-1); SQUAMOUS EPITHELIAL CELL,UR RARE /HPF (0-2)
[2022-02-05] MEDS ORDERED: SUCRALFATE 1 GM TABLET PO SCH (17:30)
[2022-02-05] MEDS ORDERED: PANTOPRAZOLE 40 MG/VIAL IVP ONE (17:30)
[2022-02-05] MEDS ORDERED: 0.9%NACL 1000ML 1,000 ML IV ONE (17:30)
[2022-02-05] MEDS ORDERED: IOHEXOL 350 MG/ML 100ML INFUS..BTL IV ONE (18:54)
[2022-02-05 19:39] VITALS: BP 189/92
[2022-02-05] MEDS ORDERED: DIPH1TAB PO (21:19)
[2022-02-05] MEDS ORDERED: NIRM1TAB PO (21:19)
== END 2022-02-05 21:40 | disposition home or self-care (01) ==
LOC: EDH 13:19
DX: U07.1 COVID-19 (principal); R19.7 Diarrhea, unspecified; E11.9 Type 2 diabetes mellitus without complications; I10 Essential (primary) hypertension; I25.10 Atherosclerotic heart disease of native coronary artery without angina pectoris; Z20.822 Contact with and (suspected) exposure to COVID-19; Z79.84 Long term (current) use of oral hypoglycemic drugs; Z79.899 Other long term (current) drug therapy; Z90.49 Acquired absence of other specified parts of digestive tract; Z95.810 Presence of automatic (implantable) cardiac defibrillator
CPT/HCPCS: 99285; 74177; 96374; 87635; 96361; 80053; 85025; 87088; 81001; 36415; 93005; C9803; J7030; C9113; Q9967

== ENCOUNTER 2022-04-28 10:21 | Emergency (ER) | payer OTHER, MEDICARE ==
[~2022-04-28] VITALS: Ht 149.9 cm; Wt 49.9 kg
[~2022-04-28 10:21] MED LIST changes: +BENZ-226 PO; -BENZ-70 PO; +DIPH1TAB PO; +NIRM1TAB PO
[2022-04-28 11:21] LABS: BASOPHILS % (AUTO) 0.2 % (0.0-5.0); EOSINOPHILS % (AUTO) 1.2 % (0.0-8.0); HEMATOCRIT 42.6 % (36-48); LYMPHOCYTES % (AUTO) 15.1 % (21.0-51.0); MEAN CORPUSCULAR HEMOGLOBIN 32.4 pg (27.0-33.0); MEAN CORPUSCULAR HGB CONC 33.3 g/dL (32.0-36.0); MEAN CORPUSCULAR VOLUME 97.3 fL (79-99); MONOCYTES % (AUTO) 9.3 % (3.0-13.0); NEUTROPHILS % (AUTO) 73.8 % (40.0-77.0); PLATELET COUNT (AUTO) 179 K/uL (130-400); RED BLOOD CELL COUNT(AUTO) 4.38 MIL/uL (4.00-5.50); RED CELL DISTRIBUTION WIDTH 13.9 % (11.0-15.5); WHITE BLOOD COUNT (AUTO) 9.4 K/uL (4.8-10.8)
[2022-04-28] MEDS ORDERED: GUAIFENESIN-DM 200/20 MG 10 ML ONE (11:23)
[2022-04-28] MEDS ORDERED: IPRATROPIUM/ALBUTEROL SULFATE 3 ML SOLUTION IH ONE (11:30)
[2022-04-28] MEDS ORDERED: GUAIFENESIN-DM 200/20 MG 10 ML PO ONE (11:30)
[2022-04-28 11:33] LABS: CREATININE 0.8 mg/dL (0.5-1.5); POTASSIUM 3.7 mmol/L (3.5-5.1)
[2022-04-28 11:38] LABS: ALBUMIN 3.5 g/dL (3.5-5.0); TOTAL PROTEIN, SERUM 7.1 g/dL (6.0-8.3)
[2022-04-28] MEDS ORDERED: NIFEDIPINE 10 MG CAP ONE (11:46)
[2022-04-28] MEDS ORDERED: IPRATROPIUM 0.5 MG/2.5 ML INH IH ONE (11:51)
[2022-04-28] MEDS ORDERED: ALBUTEROL 0.042% 1.25MG/3ML IH ONE (11:51)
[2022-04-28] MEDS ORDERED: NIFEDIPINE 10 MG CAP PO ONE (12:00)
[2022-04-28 12:35] VITALS: BP 135/53
[2022-04-28] MEDS ORDERED: GUAI5LIQ13 PO (12:36)
[2022-04-28] MEDS ORDERED: ACET-66 PO (12:36)
== END 2022-04-28 12:45 | disposition home or self-care (01) ==
LOC: EDH 10:21
DX: U07.1 COVID-19 (principal); I16.0 Hypertensive urgency; J45.909 Unspecified asthma, uncomplicated; I25.10 Atherosclerotic heart disease of native coronary artery without angina pectoris; E11.9 Type 2 diabetes mellitus without complications; I10 Essential (primary) hypertension; Z79.84 Long term (current) use of oral hypoglycemic drugs; Z79.899 Other long term (current) drug therapy; Z90.49 Acquired absence of other specified parts of digestive tract; Z95.810 Presence of automatic (implantable) cardiac defibrillator; Z20.822 Contact with and (suspected) exposure to COVID-19
CPT/HCPCS: 99285; 71045; 87635; 80053; 85025; 87804 ×2; 36415; 93005; 94640; C9803

== ENCOUNTER 2022-04-30 08:40 | Emergency (ER) | payer OTHER, MEDICARE ==
[~2022-04-30] VITALS: Ht 162.6 cm; Wt 49.9 kg
[~2022-04-30 08:40] MED LIST changes: +ACET-66 PO; +GUAI5LIQ13 PO
[2022-04-30] MEDS ORDERED: ACETAMINOPHEN WITH CODEINE 1 TAB TAB PO ONE (09:00)
[2022-04-30] MEDS ORDERED: PREDNISONE 10 MG TABLET PO ONE (09:00)
[2022-04-30] MEDS ORDERED: ACET-2079 PO (09:02)
[2022-04-30] MEDS ORDERED: NIRM1TAB5 PO (09:02)
[2022-04-30 09:32] VITALS: BP 122/74
== END 2022-04-30 09:35 | disposition home or self-care (01) ==
LOC: EDH 08:40
DX: U07.1 COVID-19 (principal); I10 Essential (primary) hypertension; E11.9 Type 2 diabetes mellitus without complications; E78.00 Pure hypercholesterolemia, unspecified; J45.909 Unspecified asthma, uncomplicated; Z79.84 Long term (current) use of oral hypoglycemic drugs; Z79.899 Other long term (current) drug therapy; Z90.49 Acquired absence of other specified parts of digestive tract; Z95.810 Presence of automatic (implantable) cardiac defibrillator
CPT/HCPCS: 99283; J7512

== ENCOUNTER 2022-05-02 12:53 | Inpatient (IN) | payer OTHER, MEDICARE ==
[~2022-05-02] VITALS: Ht 152.4 cm; Wt 46.9 kg
[~2022-05-02 12:53] MED LIST changes: +ACET-2079 PO; +NIRM1TAB5 PO
[2022-05-02 13:36] LABS: BASOPHILS % (AUTO) 0.3 % (0.0-5.0); EOSINOPHILS % (AUTO) 0.1 % (0.0-8.0); HEMATOCRIT 45.4 % (36-48); LYMPHOCYTES % (AUTO) 7.7 % (21.0-51.0); MEAN CORPUSCULAR HEMOGLOBIN 32.4 pg (27.0-33.0); MEAN CORPUSCULAR HGB CONC 33.9 g/dL (32.0-36.0); MEAN CORPUSCULAR VOLUME 95.6 fL (79-99); MONOCYTES % (AUTO) 5.8 % (3.0-13.0); NEUTROPHILS % (AUTO) 85.3 % (40.0-77.0); PLATELET COUNT (AUTO) 279 K/uL (130-400); RED BLOOD CELL COUNT(AUTO) 4.75 MIL/uL (4.00-5.50); RED CELL DISTRIBUTION WIDTH 14.1 % (11.0-15.5); WHITE BLOOD COUNT (AUTO) 18.4 K/uL (4.8-10.8)
[2022-05-02 13:45] LABS: CREATININE 1.1 mg/dL (0.5-1.5); POTASSIUM 3.7 mmol/L (3.5-5.1)
[2022-05-02] MEDS ORDERED: IOHEXOL 350 MG/ML 100ML INFUS..BTL IV ONE (13:45)
[2022-05-02 13:49] LABS: ALBUMIN 3.4 g/dL (3.5-5.0); TOTAL PROTEIN, SERUM 8.1 g/dL (6.0-8.3)
[2022-05-02 13:51] LABS: APPEARANCE,URINE CLEAR (CLEAR); BILIRUBIN,URINE NEGATIVE (NEGATIVE); COLOR,URINE COLORLESS (YELLOW); GLUCOSE, URINE (UA) >=1000 mg/dL (NEGATIVE); KETONES,URINE NEGATIVE (NEGATIVE); LEUKOCYTE ESTERASE ,URINE NEGATIVE Leu/uL (NEGATIVE); NITRATE,URINE NEGATIVE (NEGATIVE); PROTEIN,URINE 30 mg/dL (NEGATIVE); UROBILINOGEN,URINE 0.2 mg/dL (0.2-1.0)
[2022-05-02 13:52] LABS: SQUAMOUS EPITHELIAL CELL,UR RARE /HPF (0-2); WBC,URINE 0-1 /HPF (0-1)
[2022-05-02] MEDS ORDERED: AZITHROMYCIN 500MG+NS 250ML 250 ML ONE (15:59)
[2022-05-02] MEDS ORDERED: ALBUTEROL 0.083% 2.5 MG/3 ML INH IH ONE (16:00)
[2022-05-02] MEDS ORDERED: AZITHROMYCIN 500MG+NS 250ML IVPB SCH (16:00)
[2022-05-02] MEDS ORDERED: DEXAMETHASONE SOD PHOSPHATE 4 MG/ML 1ML VIAL IVP ONE (16:00)
[2022-05-02] MEDS ORDERED: CEFTRIAXONE 1G VIAL IVP ONE (16:00)
[2022-05-02] MEDS ORDERED: ONDANSETRON 4MG INJ IVP PRN (17:00)
[2022-05-02] MEDS ORDERED: ACETAMINOPHEN 325 MG TAB PO PRN (17:00)
[2022-05-02] MEDS ORDERED: LACTULOSE 20 GM/30 ML UDCUP PO PRN (17:00)
[2022-05-02] MEDS ORDERED: LABETALOL 20MG SYG IV PRN (17:00)
[2022-05-02 19:00] VITALS: BP 158/78
[2022-05-02] MEDS ORDERED: NAPR-1023 PO (19:29)
[2022-05-02] MEDS ORDERED: ASPI-1026 PO (19:29)
[2022-05-02] MEDS ORDERED: CALC-1290 PO (19:29)
[2022-05-02] MEDS ORDERED: CALC-866 PO (19:29)
[2022-05-02] MEDS: CEFEPIME HCL 1 GM VIAL IVP SCH (20:00)
[2022-05-02] MEDS: DOXYCYCLINE 100MG+NS 250ML IV SCH (20:00)
[2022-05-02] MEDS: INSULIN HUMULIN R 100 UNIT/ML 3ML SQ SCH (20:01)
[2022-05-02] MEDS: IPRATROPIUM/ALBUTEROL SULFATE 3 ML SOLUTION IH SCH ×2 (20:04→23:36)
[2022-05-02 23:25] VITALS: BP 160/64
[2022-05-03] MEDS: IPRATROPIUM/ALBUTEROL SULFATE 3 ML SOLUTION IH SCH ×6 (02:42→23:14)
[2022-05-03 03:47] VITALS: BP 157/72
[2022-05-03 04:47] LABS: BASOPHILS % (AUTO) 0.1 % (0.0-5.0); HEMATOCRIT 42.1 % (36-48); LYMPHOCYTES % (AUTO) 5.5 % (21.0-51.0); MEAN CORPUSCULAR HGB CONC 32.3 g/dL (32.0-36.0); MEAN CORPUSCULAR VOLUME 99.1 fL (79-99); MONOCYTES % (AUTO) 1.4 % (3.0-13.0); NEUTROPHILS % (AUTO) 91.9 % (40.0-77.0); PLATELET COUNT (AUTO) 236 K/uL (130-400); RED BLOOD CELL COUNT(AUTO) 4.25 MIL/uL (4.00-5.50); RED CELL DISTRIBUTION WIDTH 14.3 % (11.0-15.5); WHITE BLOOD COUNT (AUTO) 15.9 K/uL (4.8-10.8)
[2022-05-03 05:18] LABS: CREATININE 1.2 mg/dL (0.5-1.5); MAGNESIUM 1.7 mg/dL (1.80-2.40); PHOSPHORUS 3.2 mg/dL (2.5-4.9); POTASSIUM 3.6 mmol/L (3.5-5.1); THYROID STIMULATING HORMONE 0.21 uIU/mL (0.36-3.74)
[2022-05-03] MEDS: INSULIN HUMULIN R 100 UNIT/ML 3ML SQ SCH ×3 (06:33→21:31)
[2022-05-03] MEDS ORDERED: EMPA25TA PO (06:46)
[2022-05-03] MEDS ORDERED: TRAZ-185 PO (06:46)
[2022-05-03] MEDS ORDERED: MONT-39 PO (06:46)
[2022-05-03] MEDS: MAGNEBIND PO SCH (09:00)
[2022-05-03] MEDS: VIT D3 125 MCG PO SCH (09:00)
[2022-05-03] MEDS: ATORVASTATIN 10 MG TABLET PO SCH (09:53)
[2022-05-03] MEDS: CEFEPIME HCL 1 GM VIAL IVP SCH ×2 (09:53→21:16)
[2022-05-03] MEDS: DOXYCYCLINE 100MG+NS 250ML IV SCH ×2 (09:53→21:16)
[2022-05-03] MEDS: ASPIRIN 325MG TAB PO SCH (09:53)
[2022-05-03] MEDS: LOSARTAN 100 MG TABLET PO SCH (09:53)
[2022-05-03 12:00] VITALS: BP 172/81
[2022-05-03] MEDS ORDERED: MAGNESIUM 2GM PREMIX 50ML 50 ML IV SCH (12:30)
[2022-05-03 16:00] VITALS: BP 177/78
[2022-05-03 20:24] VITALS: BP 156/75
[2022-05-03 23:53] VITALS: BP 158/66
[2022-05-04] MEDS: IPRATROPIUM/ALBUTEROL SULFATE 3 ML SOLUTION IH SCH ×6 (02:24→22:42)
[2022-05-04 04:58] VITALS: BP 161/74
[2022-05-04 05:17] LABS: HEMATOCRIT 42.1 % (36-48); MEAN CORPUSCULAR HEMOGLOBIN 32.6 pg (27.0-33.0); MEAN CORPUSCULAR HGB CONC 32.5 g/dL (32.0-36.0); MEAN CORPUSCULAR VOLUME 100.2 fL (79-99); RED BLOOD CELL COUNT(AUTO) 4.2 MIL/uL (4.00-5.50); RED CELL DISTRIBUTION WIDTH 14.5 % (11.0-15.5); WHITE BLOOD COUNT (AUTO) 26.1 K/uL (4.8-10.8)
[2022-05-04 05:38] LABS: CREATININE 1.2 mg/dL (0.5-1.5); MAGNESIUM 2.3 mg/dL (1.80-2.40); POTASSIUM 3.4 mmol/L (3.5-5.1)
[2022-05-04] MEDS: INSULIN HUMULIN R 100 UNIT/ML 3ML SQ SCH ×4 (05:40→21:00)
[2022-05-04 08:00] VITALS: BP 162/63
[2022-05-04] MEDS: VIT D3 125 MCG PO SCH (09:00)
[2022-05-04] MEDS: MAGNEBIND PO SCH (09:00)
[2022-05-04] MEDS: ASPIRIN 325MG TAB PO SCH (09:21)
[2022-05-04] MEDS: CEFEPIME HCL 1 GM VIAL IVP SCH ×2 (09:21→20:54)
[2022-05-04] MEDS: LOSARTAN 100 MG TABLET PO SCH (09:21)
[2022-05-04] MEDS: FAMOTIDINE 20MG VIAL IV SCH (09:21)
[2022-05-04] MEDS: ATORVASTATIN 10 MG TABLET PO SCH (09:21)
[2022-05-04] MEDS: DOXYCYCLINE 100MG+NS 250ML IV SCH ×2 (09:21→20:54)
[2022-05-04] MEDS: ENOXAPARIN SODIUM 40 MG/0.4 ML SYRINGE SQ SCH (09:26)
[2022-05-04 12:00] VITALS: BP 126/68
[2022-05-04] MEDS ORDERED: VANCOMYCIN PROTOCOL PER PHARMACY IV SCH (15:30)
[2022-05-04 16:00] VITALS: BP 171/92
[2022-05-04] MEDS: 0.9% NACL 250ML 250 ML IV SCH (16:24)
[2022-05-04] MEDS: VANCOMYCIN 750MG VIAL IVPB SCH (16:24)
[2022-05-04 20:00] VITALS: BP 179/79
[2022-05-04] MEDS: BENZONATATE 100 MG CAPSULE PO PRN (20:58)
[2022-05-05] VITALS (7 sets, daily range): BP systolic 116–198; BP diastolic 66–89
[2022-05-05] MEDS: IPRATROPIUM/ALBUTEROL SULFATE 3 ML SOLUTION IH SCH ×6 (02:20→22:11)
[2022-05-05] MEDS ORDERED: POTASSIUM CHLORIDE 10% ELIXIR 20 MEQ/15 ML UDCUP PO PRN (02:30)
[2022-05-05] MEDS ORDERED: KCL 20 MEQ ERTAB PO PRN (02:30)
[2022-05-05 04:45] LABS: MEAN CORPUSCULAR HEMOGLOBIN 32.3 pg (27.0-33.0); MEAN CORPUSCULAR VOLUME 97.9 fL (79-99); RED BLOOD CELL COUNT(AUTO) 3.78 MIL/uL (4.00-5.50); RED CELL DISTRIBUTION WIDTH 14.5 % (11.0-15.5); WHITE BLOOD COUNT (AUTO) 15.1 K/uL (4.8-10.8)
[2022-05-05 04:59] LABS: POTASSIUM 3.5 mmol/L (3.5-5.1)
[2022-05-05] MEDS: BENZONATATE 100 MG CAPSULE PO PRN ×2 (05:46→22:06)
[2022-05-05] MEDS: INSULIN HUMULIN R 100 UNIT/ML 3ML SQ SCH ×4 (05:48→21:00)
[2022-05-05] MEDS: HYDRALAZINE 20MG/ML VIAL IV PRN (06:27)
[2022-05-05] MEDS: MAGNEBIND PO SCH (09:00)
[2022-05-05] MEDS: VIT D3 125 MCG PO SCH (09:00)
[2022-05-05] MEDS: FAMOTIDINE 20MG VIAL IV SCH (09:08)
[2022-05-05] MEDS: ATORVASTATIN 10 MG TABLET PO SCH (09:08)
[2022-05-05] MEDS: ASPIRIN 325MG TAB PO SCH (09:08)
[2022-05-05] MEDS: LOSARTAN 100 MG TABLET PO SCH (09:09)
[2022-05-05] MEDS: CEFEPIME HCL 1 GM VIAL IVP SCH ×2 (09:09→22:36)
[2022-05-05] MEDS: DOXYCYCLINE 100MG+NS 250ML IV SCH ×2 (09:09→22:36)
[2022-05-05] MEDS: ENOXAPARIN SODIUM 40 MG/0.4 ML SYRINGE SQ SCH (09:12)
[2022-05-05] MEDS: METRONIDAZOLE 500MG/100ML BAG 100 ML IVPB SCH ×2 (14:28→22:36)
[2022-05-05] MEDS: VANCOMYCIN 750MG VIAL IVPB SCH (17:34)
[2022-05-05] MEDS: 0.9% NACL 250ML 250 ML IV SCH (17:35)
[2022-05-06] MEDS: HYDRALAZINE 20MG/ML VIAL IV PRN (00:08)
[2022-05-06 01:15] VITALS: BP 159/72
[2022-05-06] MEDS: IPRATROPIUM/ALBUTEROL SULFATE 3 ML SOLUTION IH SCH ×4 (01:26→14:23)
[2022-05-06 04:00] VITALS: BP 154/49
[2022-05-06] MEDS: METRONIDAZOLE 500MG/100ML BAG 100 ML IVPB SCH ×2 (05:25→13:30)
[2022-05-06] MEDS: INSULIN HUMULIN R 100 UNIT/ML 3ML SQ SCH ×2 (07:30→11:03)
[2022-05-06 08:00] VITALS: BP 182/63
[2022-05-06] MEDS: CEFEPIME HCL 1 GM VIAL IVP SCH (08:44)
[2022-05-06] MEDS: VIT D3 125 MCG PO SCH (08:44)
[2022-05-06] MEDS: LOSARTAN 100 MG TABLET PO SCH (08:44)
[2022-05-06] MEDS: ASPIRIN 325MG TAB PO SCH (08:44)
[2022-05-06] MEDS: MAGNEBIND PO SCH (08:44)
[2022-05-06] MEDS: DOXYCYCLINE 100MG+NS 250ML IV SCH (08:44)
[2022-05-06] MEDS: ATORVASTATIN 10 MG TABLET PO SCH (08:44)
[2022-05-06] MEDS: FAMOTIDINE 20MG VIAL IV SCH (08:45)
[2022-05-06] MEDS: ENOXAPARIN SODIUM 40 MG/0.4 ML SYRINGE SQ SCH (08:45)
[2022-05-06] MEDS ORDERED: FUROSEMIDE 20 MG TABLET PO SCH (11:21)
[2022-05-06] MEDS ORDERED: CLONIDINE HCL 0.1 MG TABLET PO PRN (11:30)
[2022-05-06 11:36] LABS: BASOPHILS % (AUTO) 0.5 % (0.0-5.0); EOSINOPHILS % (AUTO) 0.9 % (0.0-8.0); HEMATOCRIT 41.6 % (36-48); LYMPHOCYTES % (AUTO) 13.3 % (21.0-51.0); MEAN CORPUSCULAR HEMOGLOBIN 32.5 pg (27.0-33.0); MEAN CORPUSCULAR HGB CONC 33.7 g/dL (32.0-36.0); MEAN CORPUSCULAR VOLUME 96.5 fL (79-99); MONOCYTES % (AUTO) 6.8 % (3.0-13.0); PLATELET COUNT (AUTO) 256 K/uL (130-400); RED BLOOD CELL COUNT(AUTO) 4.31 MIL/uL (4.00-5.50); RED CELL DISTRIBUTION WIDTH 14.5 % (11.0-15.5); WHITE BLOOD COUNT (AUTO) 11.9 K/uL (4.8-10.8)
[2022-05-06 11:49] LABS: ALBUMIN 2.9 g/dL (3.5-5.0); CREATININE 0.9 mg/dL (0.5-1.5); POTASSIUM 3.6 mmol/L (3.5-5.1); TOTAL PROTEIN, SERUM 6.7 g/dL (6.0-8.3)
[2022-05-06 12:00] VITALS: BP 188/66
[2022-05-06] MEDS ORDERED: CLON0.1T2 PO (14:29)
[2022-05-06] MEDS ORDERED: FURO20TA6 PO (14:29)
[2022-05-06] MEDS ORDERED: AMOX-426 PO (14:34)
[2022-05-06] MEDS: VANCOMYCIN 750MG VIAL IVPB SCH (16:00)
[2022-05-06] MEDS: 0.9% NACL 250ML 250 ML IV SCH (16:00)
[2022-05-06] MEDS ORDERED: TRAZODONE HCL 50 MG TAB PO SCH (21:00)
[2022-05-07] MEDS ORDERED: MONTELUKAST SODIUM 10 MG TAB PO SCH (09:00)
[2022-05-07] MEDS ORDERED: FUROSEMIDE 20 MG TABLET PO SCH (09:00)
== END 2022-05-06 16:40 | disposition home or self-care (01) | DRG 871 ==
LOC: EDH 12:53 → EDHIP 16:45 → OBSVTOIN 16:45 → 4BH 18:47
PROVIDERS: ADMIT Internal Medicine; ATTEND Internal Medicine
DX: A41.9 Sepsis, unspecified organism (principal); J18.9 Pneumonia, unspecified organism; Z20.822 Contact with and (suspected) exposure to COVID-19; I49.5 Sick sinus syndrome; K52.9 Noninfective gastroenteritis and colitis, unspecified; I10 Essential (primary) hypertension; E11.65 Type 2 diabetes mellitus with hyperglycemia; K86.89 Other specified diseases of pancreas; J45.909 Unspecified asthma, uncomplicated; E78.00 Pure hypercholesterolemia, unspecified; Z95.810 Presence of automatic (implantable) cardiac defibrillator; Z86.16 Personal history of COVID-19; Z87.442 Personal history of urinary calculi
CPT/HCPCS: 36415; 71045; 74177; 80048; 80053; 81001; 82948; 83735; 84100; 84145; 84443; 84484; 85025; 85027; 87071; 87205; 87635; 87804; 93005; 94640; 94664; 94667; 94668; 94760; C9803; G0378; J0360; J0456; J0692; J0696; J1100; J1650; J1815; J3475; J3490; J7512; Q9967

== ENCOUNTER 2023-01-01 09:01 | Emergency (ER) | payer OTHER, MEDICARE ==
[~2023-01-01] VITALS: Ht 149.9 cm; Wt 51.3 kg
[~2023-01-01 09:01] MED LIST changes: -ACET-2079 PO; -ACET-66 PO; -AMLO-257 PO; +AMOX-426 PO; +ASPI-1026 PO; -BENZ-226 PO; +CALC-1290 PO; +CALC-866 PO; -CHOL4PAC6 PO; +CLON0.1T2 PO; -DIPH1TAB PO; +EMPA25TA PO; -EZET10TA13 PO; +FURO20TA6 PO; -GUAI5LIQ13 PO; -LOSA100T58 PO; +LOSA100T59 PO; +MONT-39 PO; -NIRM1TAB PO; -NIRM1TAB5 PO; -PIOG30TA70 PO; -POTA-79 PO; +TRAZ-185 PO
[2023-01-01] MEDS ORDERED: HYDRALAZINE 20MG/ML VIAL IV ONE ×2 (09:30→12:00)
[2023-01-01 09:45] LABS: BASOPHILS # (AUTO) 0.03 K/uL (0.00-0.20); BASOPHILS % (AUTO) 0.6 % (0.0-5.0); EOSINOPHILS # (AUTO) 0.11 K/uL (0.00-0.70); EOSINOPHILS % (AUTO) 2.2 % (0.0-8.0); HEMATOCRIT 41.8 % (36-48); IMMATURE GRANULOCYTE ABSOLUTE 0.02 K/uL (0-1); LYMPHOCYTES # (AUTO) 1.3 K/uL (1.0-4.8); LYMPHOCYTES % (AUTO) 25.4 % (21.0-51.0); MEAN CORPUSCULAR HEMOGLOBIN 32.5 pg (27.0-33.0); MEAN CORPUSCULAR HGB CONC 34.9 g/dL (32.0-36.0); MEAN CORPUSCULAR VOLUME 93.1 fL (79-99); MONOCYTES # (AUTO) 0.5 K/uL (0.1-1.0); MONOCYTES % (AUTO) 10.7 % (3.0-13.0); NEUTROPHILS # (AUTO) 3.1 K/uL (1.8-7.7); NEUTROPHILS % (AUTO) 60.7 % (40.0-77.0); PLATELET COUNT (AUTO) 162 K/uL (130-400); RED BLOOD CELL COUNT(AUTO) 4.49 MIL/uL (4.00-5.50); RED CELL DISTRIBUTION WIDTH 13.5 % (11.0-15.5); WHITE BLOOD COUNT (AUTO) 5.1 K/uL (4.8-10.8)
[2023-01-01 09:55] LABS: CREATININE 0.9 mg/dL (0.5-1.5); POTASSIUM 3.6 mmol/L (3.5-5.1)
[2023-01-01 10:00] LABS: ALBUMIN 4.1 g/dL (3.5-5.0); BILIRUBIN,TOTAL 0.6 mg/dL (0.2-1.0)
[2023-01-01 10:11] LABS: B-TYPE NATRIURETIC PEPTIDE 199 pg/mL (0-100)
[2023-01-01 11:43] LABS: APPEARANCE,URINE CLEAR (CLEAR); BILIRUBIN,URINE NEGATIVE (NEGATIVE); COLOR,URINE COLORLESS (YELLOW); GLUCOSE, URINE (UA) NEGATIVE (NEGATIVE); KETONES,URINE NEGATIVE (NEGATIVE); LEUKOCYTE ESTERASE ,URINE NEGATIVE Leu/uL (NEGATIVE); NITRATE,URINE NEGATIVE (NEGATIVE); OCCULT BLOOD,URINE NEGATIVE (NEGATIVE); PH,URINE 7.5 (5.0-8.0); PROTEIN,URINE NEGATIVE (NEGATIVE); UROBILINOGEN,URINE 0.2 mg/dL (0.2-1.0)
[2023-01-01 11:59] LABS: ADD UA MICROSCOPIC NO
[2023-01-01 13:22] VITALS: BP 135/67; PULSE 83; RESP 16; O2SAT 98
== END 2023-01-01 13:23 | disposition home or self-care (01) ==
LOC: EDH 09:01
DX: I10 Essential (primary) hypertension (principal); E11.9 Type 2 diabetes mellitus without complications; E78.00 Pure hypercholesterolemia, unspecified; J45.909 Unspecified asthma, uncomplicated; Z90.49 Acquired absence of other specified parts of digestive tract
CPT/HCPCS: 99285; 96374; 71045; 84484; 80053; 83880; 85025; 81003; 36415; 96376; 93005; J0360 ×2

== ENCOUNTER → 2023-03-23 | Outpatient (CLI) | payer OTHER, MEDICARE | END | disposition home or self-care (01) | LOC: SHCH 07:38 | PROVIDERS: ATTEND Internal Medicine Cardiovascular Disease | DX: I08.3 Combined rheumatic disorders of mitral, aortic and tricuspid valves (principal); I11.9 Hypertensive heart disease without heart failure; I70.1 Atherosclerosis of renal artery; I65.23 Occlusion and stenosis of bilateral carotid arteries; E11.9 Type 2 diabetes mellitus without complications; E78.5 Hyperlipidemia, unspecified; R09.89 Other specified symptoms and signs involving the circulatory and respiratory systems; Z95.0 Presence of cardiac pacemaker; Z79.82 Long term (current) use of aspirin; Z79.899 Other long term (current) drug therapy | CPT/HCPCS: 93306; 93880; 93975 ==

== ENCOUNTER 2023-05-28 10:30 | Emergency (ER) | payer OTHER, MEDICARE ==
[~2023-05-28] VITALS: Ht 154.9 cm; Wt 52.2 kg
[2023-05-28 11:04] LABS: BASOPHILS # (AUTO) 0.03 K/uL (0.00-0.20); BASOPHILS % (AUTO) 0.5 % (0.0-5.0); EOSINOPHILS # (AUTO) 0.13 K/uL (0.00-0.70); EOSINOPHILS % (AUTO) 2.4 % (0.0-8.0); HEMATOCRIT 38.9 % (36-48); IMMATURE GRANULOCYTE ABSOLUTE 0.03 K/uL (0-1); LYMPHOCYTES # (AUTO) 1.7 K/uL (1.0-4.8); LYMPHOCYTES % (AUTO) 31.6 % (21.0-51.0); MEAN CORPUSCULAR HEMOGLOBIN 32.4 pg (27.0-33.0); MEAN CORPUSCULAR HGB CONC 34.2 g/dL (32.0-36.0); MEAN CORPUSCULAR VOLUME 94.9 fL (79-99); MONOCYTES # (AUTO) 0.5 K/uL (0.1-1.0); MONOCYTES % (AUTO) 8.7 % (3.0-13.0); NEUTROPHILS # (AUTO) 3.1 K/uL (1.8-7.7); NEUTROPHILS % (AUTO) 56.3 % (40.0-77.0); PLATELET COUNT (AUTO) 177 K/uL (130-400); RED CELL DISTRIBUTION WIDTH 13.2 % (11.0-15.5); WHITE BLOOD COUNT (AUTO) 5.5 K/uL (4.8-10.8)
[2023-05-28 11:23] LABS: ALBUMIN 3.6 g/dL (3.5-5.0); BILIRUBIN,TOTAL 0.5 mg/dL (0.2-1.0); CREATININE 0.9 mg/dL (0.5-1.0); TOTAL PROTEIN, SERUM 6.9 g/dL (6.0-8.3)
[2023-05-28] MEDS: CLONIDINE HCL 0.1 MG TABLET PO ONE (13:50)
[2023-05-28 14:37] VITALS: BP 166/69; PULSE 60; RESP 14; O2SAT 99
== END 2023-05-28 15:24 | disposition home or self-care (01) ==
LOC: EDH 10:30
DX: R07.89 Other chest pain (principal); I10 Essential (primary) hypertension; E11.9 Type 2 diabetes mellitus without complications; E78.00 Pure hypercholesterolemia, unspecified; J45.909 Unspecified asthma, uncomplicated; Z79.82 Long term (current) use of aspirin; Z79.84 Long term (current) use of oral hypoglycemic drugs; Z79.899 Other long term (current) drug therapy; Z90.49 Acquired absence of other specified parts of digestive tract; Z95.810 Presence of automatic (implantable) cardiac defibrillator; Z98.890 Other specified postprocedural states
CPT/HCPCS: 36415; 71045; 80053; 84484; 85025; 93005

== ENCOUNTER 2024-03-01 10:07 | Emergency (ER) | payer OTHER, MEDICARE ==
[~2024-03-01] VITALS: Ht 147.3 cm; Wt 49.4 kg
[~2024-03-01 10:07] MED LIST changes: +METH4TAB3 PO
--- NOTE | 2024-03-01 10:30 | ERN ---
ED Note History of Present Illness Stated Complaint: RT EAR PAIN Chief Complaint: Headache Time Seen by MD: 10:10 Time Seen by Midlevel: 10:14 Dictation: 88-year-old female with a history of hypertension, diabetes, cholesterol and asthma coming in complaining of right-sided headache for two days. Patient also complaining of ear pain. Denies having any dizziness, nausea, vomiting, visual disturbance, fevers. Allergies: Coded Allergies: No Known Drug Allergies (Verified Allergy, Unknown, 04/18/19) Home Meds Active Scripts Methylprednisolone (Medrol) 4 Mg Tab.ds.pk, 1 TAB PO AD for 6 Days, #21 TAB 0 Refills 6 on day 1 then reduce by one tablet daily until gone Prov:HUSSAIN MCINTYRE EXECUTIVE LEGAL SECRETARY 12/13/23 Amoxicillin/Potassium Clav (Augmentin 500-125 Tablet) 1 Each Tablet, 1 EACH PO BID for 7 Days, #14 TAB Prov:FILI ALTAMIRANO 05/06/22 Clonidine HCl (Catapress) 0.1 Mg Tab, 0.1 MG PO Q6H PRN for ADMINISTER FOR SBP/D BP>170/100 for 10 Days, #40 TAB Prov:FILI ALTAMIRANO 05/06/22 Furosemide (Lasix 20Mg Tab) 20 Mg Tablet, 20 MG PO DAILY for 30 Days, #30 TAB Prov:FILI ALTAMIRANO 05/06/22 Reported Medications Empagliflozin (Jardiance) 25 Mg Tablet, 25 MG PO DAILY, TAB 05/03/22 Trazodone HCl (Trazodone HCl) 50 Mg Tablet, 50 MG PO HS, TAB 05/03/22 Montelukast Sodium (Montelukast Sodium) 10 Mg Tablet, 10 MG PO DAILY, TAB 05/03/22 Aspirin (Aspirin) 325 Mg Tablet, 325 MG PO DAILY, TAB 05/02/22 Cholecalciferol (Vitamin D3) (Vitamin D3) 125 Mcg Tablet, 125 MCG PO DAILY, TAB 05/02/22 Calcium Carbonate/Mag Carb (Magnebind 400 Tablet) 1 Each Tablet, 1 EACH PO DAILY, TAB 05/02/22 Albuterol Sulfate (Proair Hfa) 8.5 Gm Hfa.aer.ad, 8.5 GM IH TID for SOB 12/23/18 Losartan Potassium (Losartan Potassium) 100 Mg Tablet, 100 MG PO DAILY, TAB 12/23/18 Pravastatin Sodium (Pravastatin Sodium) 20 Mg Tablet, 40 MG PO DAILY, TAB 12/23/18 Omeprazole (Omeprazole) 20 Mg Capsule.dr, 20 MG PO DAILY, CAP 12/07/16 Metformin HCl (Metformin HCl) 500 Mg Tablet, 1000 MG PO BID, TAB 12/07/16 Past Medical History Past Medical History: Asthma, Diabetes-Type II, High Cholesterol, Heart Disease, Hypertension Surgical History: Cholecystectomy, Pacer/AICD Family History: Negative Social History: Negative, Lives with family History: Not Applicable Review of System Dictation Constitutional: Negative for fever,chills, and weight loss Eyes: Negative for injury, pain,redness, and discharge ENT: Negative for injury,pain or swelling complaining of right ear pain Cardiovascular: Negative for chest pain, palpitations, and edema Respiratory: Negative for shortness of breath, cough, and wheezing, Abdomen/GI: Negative for abdominal pain, nausea, vomiting, diarrhea, and constip ation Back: Negative for injury and pain : Negative for injury, bleeding and discharge MS/Extremity: Negative for injury and deformity Skin: Negative for rash, and discoloration Neuro: Positive for headache, no weakness, no numbness, no tingling, and no seizure Psych: Negative for suicide ideation, homicidal ideation, and hallucinations Review of Systems: was completed Initial Vital Sign VS Vital Signs Date Time Temp Pulse Resp B/P (MAP) Pulse Ox O2 Delivery O2 Flow Rate FiO2 03/01/24 10:09 98.1 63 20 184/72 98 Room Air 03/01/24 10:41 0 21 Physical Exam Dictation General: awake, alert, NAD Head/Face: Normocephalic, atraumatic Eyes: PERRL, EOMI, vision at baseline ENT: oral cavity clear, TMs clear, no signs of infection serum removed from her right ear Neck: Trachea midline, supple, no nuchal rigidity Cardiovascular: RRR, normal S1/S2, No MRGs, no JVD Respiratory: CTAB, no respiratory distress, No rales or wheezes Abdomen: Soft, non-tender, non-distended, normal bowel sounds, no guarding or rebound. Skin: Warm, dry, normal turgor, no rash MS/Extremity: Pulses equal, no cyanosis, neurovascular intact, FROM Neuro: COAx4, GCS 15, strength 5/5, CN 2-12 intact, normal cerebellar exam, normal gait, Psych: Normal behavior, mood, and affect normal Results (Laboratory/Radiology) Laboratory/Radiology Laboratory Tests Test 03/01/24 11:19 White Blood Count 5.0 K/uL (4.8-10.8) Red Blood Count 4.18 MIL/uL (4.00-5.50) Hemoglobin 13.7 g/dL (12.0-16.0) Hematocrit 40.3 % (36-48) Mean Corpuscular Volume 96.4 fL (79-99) Mean Corpuscular Hemoglobin 32.8 pg (27.0-33.0) Mean Corpuscular Hemoglobin Concent 34.0 g/dL (32.0-36.0) Red Cell Distribution Width 12.7 % (11.0-15.5) Platelet Count 170 K/uL (130-400) Mean Platelet Volume 11.1 fL (7.5-10.5) H Immature Granulocyte % (Auto) 0.2 % (0-1) Neutrophils (%) (Auto) 60.9 % (40.0-77.0) Lymphocytes (%) (Auto) 27.1 % (21.0-51.0) Monocytes (%) (Auto) 9.4 % (3.0-13.0) Eosinophils (%) (Auto) 2.0 % (0.0-8.0) Basophils (%) (Auto) 0.4 % (0.0-5.0) Neutrophils # (Auto) 3.0 K/uL (1.8-7.7) Lymphocytes # (Auto) 1.4 K/uL (1.0-4.8) Monocytes # (Auto) 0.5 K/uL (0.1-1.0) Eosinophils # (Auto) 0.10 K/uL (0.00-0.70) Basophils # (Auto) 0.02 K/uL (0.00-0.20) Absolute Immature Granulocyte (auto 0.01 K/uL (0-1) Nucleated Red Blood Cells 0.0 % (0.0-0.19) Erythrocyte Sedimentation Rate 10 MM/HR (0-30) Sodium Level 145 mmol/L (136-145) Potassium Level 4.1 mmol/L (3.5-5.1) Chloride Level 106 mmol/L (101-111) Carbon Dioxide Level 30 mmol/L (21-32) Blood Urea Nitrogen 16 mg/dL (7-18) Creatinine 1.2 mg/dL (0.5-1.0) H Glomerular Filtration Rate Calc 44 mL/min (>90) Random Glucose 121 mg/dL (70-105) H Total Calcium 9.0 mg/dL (8.5-10.1) Labs Reviewed?: Yes CT Scan Comment: [facility] [address] [place] [address] IMAGING REPORT Signed PATIENT: TRAE MONZON MR#: [id number] : 1935 SEX: F AGE: 88 LOCATION: [facility] ORDER [id number] STATUS: REG ER REPORT#: [id number] SERVICE 1036 REASON: headache ORDERING PHYSICIAN: AZEB REYES NP PROCEDURE: HEAD WO - CT HEAD/BRAIN W/O CONTRAST Exam: NONCONTRAST CT BRAIN REASON: headache. COMPARISON: 12/03/2020 TECHNIQUE: Images are obtained from vertex to the skull base. The exam was performed without IV contrast. FINDINGS: There are generous ventricles and sulci. There is decreased attenuation in the deep central white matter. These findings are consistent with atrophy. There are no acute appearing focal parenchymal lesions. There is no evidence of mass, intracranial hemorrhage or acute stroke. Posterior fossa and brainstem structures appear unremarkable. There are no abnormal fluid collections. Extra cranial soft tissues appear unremarkable as well. IMPRESSION: 1. Atrophy, no acute finding. CT was performed with one or more following dose reduction techniques: automated exposure control, adjustment of the mA and kv according to patient's size, or use of a iterative reconstruction technique. DICTATED BY: MITUL PIERCE MD DATE: 03/01/24 1108 ELECTRONICALLY SIGNED BY: MITUL PIERCE MD DATE: 03/01/24 1116 ED Course ED Course Orders Procedure Category Date Status Time Acetaminophen 325 Tab PHA 03/01/24 Complete (Tylenol 325mg Tab 10:21 Cbc With Differential LAB 03/01/24 Complete 10:36 Basic Metabolic Panel LAB 03/01/24 Complete 10:36 12 Lead Ekg Tracing- EKG 03/01/24 Complete Technical 10:36 Erythrocyte LAB 03/01/24 Complete Sedimentation Rate 10:36 Ct Head/Brain W/O CT 03/01/24 Resulted Contrast 10:36 Current Medications Medications (Trade) Dose Ordered Sig/Theo Route PRN Reason Start Time Stop Time Status Last Admin Dose Admin Acetaminophen (TYLenol 325MG TAB) 650 mg ONCE STAT PO 03/01/24 10:21 03/01/24 10:22 DC 03/01/24 10:48 Vital Signs Date Time Temp Pulse Resp B/P (MAP) Pulse Ox O2 Delivery O2 Flow Rate FiO2 03/01/24 10:41 98.1 63 20 184/72 98 Room Air* 0 21 03/01/24 10:09 98.1 63 20 184/72 98 Room Air Medical Decision Making MDM MDM:88-year-old female with a history of hypertension, diabetes, cholesterol and asthma coming in complaining of right-sided headache for two days. Patient also complaining of ear pain. Denies having any dizziness, nausea, vomiting, visual disturbance, fevers. CBC shows a leukocytosis, no anemia, no thrombocytopenia. ESR is 10 . Chemistry shows mild elevation of creatinine of 1.2, however this could be related to dehydration. All other electrolytes are within normal range. CT scan of the head shows no acute findings. Reassess patient had to Tylenol, patient states headache is gone. Educated patient that she is to follow up with PCP in 1-2 days return to the ER symptoms worsen. Patient verbalized understanding, answered all questions. Differential diagnosis: Temporal arteritis, headache, ICH, otitis media, otitis externa Rationale: Tests considered and ordered secondary to shared decision making incl ude: Previous outside records reviewed: Old ER visits. Risk of complication and/or morbidity or mortality of patient management: None Medications-Per medication reconciliation Need for hospitalization: Patient does not meet criteria for hospitalization. Need for emergency major/minor surgery: No There are no social concerns with this patient. Prescription drug management Prescriptions will include symptomatic care Patient's prior external medical records from other ER visits were reviewed by me as indicated. Prior testing and results from previous visits were reviewed. Prior tests were taken into account with medical decision making and resource utilization, independent historian/historians were used to obtain complete medical history. I independently interpreted the test that were performed, results were reviewed by me and considered findings on radiology if ordered. Medical management and examination interpretation discussions were had by me with other qualified healthcare professionals as indicated for the patient's care. DX & DISP Disposition: Discharge Departure Impression: Primary Impression: Head ache Condition: Stable Additional Instructions: puedes aida Tylneol cada 6 hrs para el dolor, seguir con justin doctor. Referrals: ROJELIO RANDOLPH DO (PCP) Time of Disposition: 13:07 I have reviewed the case, and I agree with, Diagnosis and Plan AZEB REYES EXECUTIVE LEGAL SECRETARY Mar 01, 2024 10:30
[2024-03-01] MEDS: acetaMINOPHEN 325 MG TAB PO STA (10:48)
--- NOTE | 2024-03-01 11:09 | EKG ---
[facility] Test Date: 2024-03-01 Test Time: 11:06:41 Pat Name: TRAE MONZON Department: [facility] Patient ID: [facility]-[id number] Room: Gender: F Linotype Worker: [id number] : 1935 Requested By: AZEB REYES Order Number: [id number] Reading MD: Cate Dias Measurements Intervals [place] Rate: 51 P: -57 GA: 123 QRS: -37 QRSD: 98 T: 189 QT: 473 QTc: 435 Interpretive Statements Ectopic atrial rhythm Probable anterior infarct, age indeterminate Compared to ECG 05/28/2023 10:38:19 Ectopic atrial rhythm now present Myocardial infarct finding now present Atrial-paced complex(es) or rhythm no longer present Ventricular-paced complex(es) or rhythm no longer present Electronically Signed On 03-01-2024 17:10:15 SPONSORSHIP MANAGER by Cate Dias Please click the below link to view image of tracing.
--- NOTE | 2024-03-01 11:11 | HMCIMG ---
Exam: NONCONTRAST CT BRAIN REASON: headache. COMPARISON: 12/03/2020 TECHNIQUE: Images are obtained from vertex to the skull base. The exam was performed without IV contrast. FINDINGS: There are generous ventricles and sulci. There is decreased attenuation in the deep central white matter. These findings are consistent with atrophy. There are no acute appearing focal parenchymal lesions. There is no evidence of mass, intracranial hemorrhage or acute stroke. Posterior fossa and brainstem structures appear unremarkable. There are no abnormal fluid collections. Extra cranial soft tissues appear unremarkable as well. IMPRESSION: 1. Atrophy, no acute finding. CT was performed with one or more following dose reduction techniques: automated exposure control, adjustment of the mA and kv according to patient's size, or use of a iterative reconstruction technique.
[2024-03-01 11:29] LABS: BASOPHILS # (AUTO) 0.02 K/uL (0.00-0.20); BASOPHILS % (AUTO) 0.4 % (0.0-5.0); HEMATOCRIT 40.3 % (36-48); IMMATURE GRANULOCYTE ABSOLUTE 0.01 K/uL (0-1); LYMPHOCYTES # (AUTO) 1.4 K/uL (1.0-4.8); LYMPHOCYTES % (AUTO) 27.1 % (21.0-51.0); MEAN CORPUSCULAR HEMOGLOBIN 32.8 pg (27.0-33.0); MEAN CORPUSCULAR VOLUME 96.4 fL (79-99); MONOCYTES # (AUTO) 0.5 K/uL (0.1-1.0); MONOCYTES % (AUTO) 9.4 % (3.0-13.0); NEUTROPHILS % (AUTO) 60.9 % (40.0-77.0); PLATELET COUNT (AUTO) 170 K/uL (130-400); RED BLOOD CELL COUNT(AUTO) 4.18 MIL/uL (4.00-5.50); RED CELL DISTRIBUTION WIDTH 12.7 % (11.0-15.5)
[2024-03-01 11:36] LABS: CREATININE 1.2 mg/dL (0.5-1.0); POTASSIUM 4.1 mmol/L (3.5-5.1)
[2024-03-01 12:39] LABS: ERYTHROCYTE SEDIMENTATION RATE 10 MM/HR (0-30)
[2024-03-01 13:18] VITALS: BP 179/69; PULSE 66; RESP 20; TEMP 98.1; O2SAT 98
== END 2024-03-01 13:33 | disposition home or self-care (01) ==
LOC: EDH 10:07
DX: H92.01 Otalgia, right ear (principal); E11.9 Type 2 diabetes mellitus without complications; E78.00 Pure hypercholesterolemia, unspecified; I10 Essential (primary) hypertension; J45.909 Unspecified asthma, uncomplicated; Z79.82 Long term (current) use of aspirin; Z79.84 Long term (current) use of oral hypoglycemic drugs; Z79.899 Other long term (current) drug therapy; Z90.49 Acquired absence of other specified parts of digestive tract; Z95.810 Presence of automatic (implantable) cardiac defibrillator
CPT/HCPCS: 36415; 70450; 80048; 85025; 85651; 93005; 99284

== ENCOUNTER 2024-03-29 11:13 | Emergency (ER) | payer OTHER, MEDICARE ==
[~2024-03-29] VITALS: Ht 152.4 cm; Wt 49.4 kg
--- NOTE | 2024-03-29 12:14 | EKG ---
[facility] Test Date: 2024-03-29 Test Time: 12:11:03 Pat Name: TRAE MONZON Department: [facility] Room: Gender: F Potato Bucker: [id number] : 1935 Requested By: AZEB REYES Order Number: [id number] Reading MD: Kathleen Regan Measurements Intervals [place] Rate: 58 P: -69 OR: 128 QRS: -27 QRSD: 95 T: 230 QT: 481 QTc: 473 Interpretive Statements Ectopic atrial rhythm Abnormal T, consider ischemia, diffuse leads Compared to ECG 03/01/2024 11:06:41 T-wave abnormality now present Possible ischemia now present Myocardial infarct finding no longer present Electronically Signed On 03-29-2024 16:59:29 COMMERCIAL LOAN COLLECTION OFFICER by Kathleen Regan Please click the below link to view image of tracing.
[2024-03-29 12:16] LABS: BASOPHILS # (AUTO) 0.01 K/uL (0.00-0.20); BASOPHILS % (AUTO) 0.1 % (0.0-5.0); EOSINOPHILS # (AUTO) 0.09 K/uL (0.00-0.70); EOSINOPHILS % (AUTO) 0.8 % (0.0-8.0); IMMATURE GRANULOCYTE ABSOLUTE 0.03 K/uL (0-1); LYMPHOCYTES # (AUTO) 1.2 K/uL (1.0-4.8); LYMPHOCYTES % (AUTO) 10.3 % (21.0-51.0); MEAN CORPUSCULAR HEMOGLOBIN 32.6 pg (27.0-33.0); MEAN CORPUSCULAR HGB CONC 34.1 g/dL (32.0-36.0); MEAN CORPUSCULAR VOLUME 95.3 fL (79-99); MONOCYTES # (AUTO) 0.7 K/uL (0.1-1.0); MONOCYTES % (AUTO) 6.1 % (3.0-13.0); NEUTROPHILS # (AUTO) 9.5 K/uL (1.8-7.7); NEUTROPHILS % (AUTO) 82.4 % (40.0-77.0); PLATELET COUNT (AUTO) 186 K/uL (130-400); RED CELL DISTRIBUTION WIDTH 13.1 % (11.0-15.5); WHITE BLOOD COUNT (AUTO) 11.6 K/uL (4.8-10.8)
[2024-03-29 12:25] LABS: CREATININE 0.7 mg/dL (0.5-1.0); POTASSIUM 3.7 mmol/L (3.5-5.1)
[2024-03-29] MEDS ORDERED: FAMO-136 PO (12:43)
--- NOTE | 2024-03-29 12:45 | ERN ---
ED Note History of Present Illness Stated Complaint: NAUSEA,VOMITING Chief Complaint: Nausea,Vomiting,Diarrhea Time Seen by MD: 11:19 Time Seen by Midlevel: 11:22 Dictation: 88-year-old female with a history of hypertension diabetes coming in complaining of nausea that happened earlier today. Patient states all the symptoms have subsided. States she had three episodes of diarrhea, nonbloody and one episode of vomiting nonbloody. Patient states last night she had a cheese taco, states she has had this before however has not ever had it right before bed. At this time patient has no complaints. Allergies: Coded Allergies: No Known Drug Allergies (Verified Allergy, Unknown, 04/18/19) Home Meds Active Scripts Famotidine (Pepcid) 20 Mg Tablet, 1 TAB PO BID for 30 Days, #60 TAB 0 Refills Prov:AZEB REYES TELEGRAPHIC TYPEWRITER OPERATOR 03/29/24 Methylprednisolone (Medrol) 4 Mg Tab.ds.pk, 1 TAB PO AD for 6 Days, #21 TAB 0 Refills 6 on day 1 then reduce by one tablet daily until gone Prov:HUSSAIN MCINTYRE TELEGRAPHIC TYPEWRITER OPERATOR 12/13/23 Amoxicillin/Potassium Clav (Augmentin 500-125 Tablet) 1 Each Tablet, 1 EACH PO BID for 7 Days, #14 TAB Prov:FILI ALTAMIRANO 05/06/22 Clonidine HCl (Catapress) 0.1 Mg Tab, 0.1 MG PO Q6H PRN for ADMINISTER FOR SBP/DBP>170/100 for 10 Days, #40 TAB Prov:FILI ALTAMIRANO 05/06/22 Furosemide (Lasix 20Mg Tab) 20 Mg Tablet, 20 MG PO DAILY for 30 Days, #30 TAB Prov:FILI ALTAMIRANO 05/06/22 Reported Medications Empagliflozin (Jardiance) 25 Mg Tablet, 25 MG PO DAILY, TAB 05/03/22 Trazodone HCl (Trazodone HCl) 50 Mg Tablet, 50 MG PO HS, TAB 05/03/22 Montelukast Sodium (Montelukast Sodium) 10 Mg Tablet, 10 MG PO DAILY, TAB 05/03/22 Aspirin (Aspirin) 325 Mg Tablet, 325 MG PO DAILY, TAB 05/02/22 Cholecalciferol (Vitamin D3) (Vitamin D3) 125 Mcg Tablet, 125 MCG PO DAILY, TAB 05/02/22 Calcium Carbonate/Mag Carb (Magnebind 400 Tablet) 1 Each Tablet, 1 EACH PO DAILY, TAB 05/02/22 Albuterol Sulfate (Proair Hfa) 8.5 Gm Hfa.aer.ad, 8.5 GM IH TID for SOB 12/23/18 Losartan Potassium (Losartan Potassium) 100 Mg Tablet, 100 MG PO DAILY, TAB 12/23/18 Pravastatin Sodium (Pravastatin Sodium) 20 Mg Tablet, 40 MG PO DAILY, TAB 12/23/18 Omeprazole (Omeprazole) 20 Mg Capsule.dr, 20 MG PO DAILY, CAP 12/07/16 Metformin HCl (Metformin HCl) 500 Mg Tablet, 1000 MG PO BID, TAB 12/07/16 Past Medical History Past Medical History: Asthma, Diabetes-Type II, High Cholesterol, Heart Disease, Hypertension Surgical History: Cholecystectomy, Pacer/AICD Family History: Negative Social History: Negative, Lives with family History: Not Applicable Review of System Dictation Constitutional: Negative for fever,chills, and weight loss Eyes: Negative for injury, pain,redness, and discharge ENT: Negative for injury,pain or swelling Cardiovascular: Negative for chest pain, palpitations, and edema Respiratory: Negative for shortness of breath, cough, and wheezing, Abdomen/GI: Negative for abdominal pain, nausea, vomiting, diarrhea, and constipation Back: Negative for injury and pain : Negative for injury, bleeding and discharge MS/Extremity: Negative for injury and deformity Skin: Negative for rash, and discoloration Neuro: Negative for headache, weakness, numbness, tingling, and seizure Psych: Negative for suicide ideation, homicidal ideation, and hallucinations Review of Systems: was completed Initial Vital Sign VS Vital Signs Date Time Temp Pulse Resp B/P (MAP) Pulse Ox O2 Delivery O2 Flow Rate FiO2 03/29/24 11:14 96.4 64 20 240/86 97 Physical Exam Dictation General: awake, alert, NAD Head/Face: Normocephalic, atraumatic Eyes: PERRL, EOMI, vision at baseline ENT: oral cavity clear, TMs clear, no signs of infection Neck: Trachea midline, supple, no nuchal rigidity Cardiovascular: RRR, normal S1/S2, No MRGs, no JVD Respiratory: CTAB, no respiratory distress, No rales or wheezes Abdomen: Soft, non-tender, non-distended, normal bowel sounds, no guarding or rebound. Skin: Warm, dry, normal turgor, no rash MS/Extremity: Pulses equal, no cyanosis, neurovascular intact, FROM Neuro: COAx4, GCS 15, strength 5/5, CN 2-12 intact, normal cerebellar exam, normal gait, Psych: Normal behavior, mood, and affect normal Results (Laboratory/Radiology) Laboratory/Radiology Laboratory Tests Test 03/29/24 11:29 03/29/24 11:43 Troponin I High Sensitivity 18 ng/L (4-50) White Blood Count 11.6 K/uL (4.8-10.8) H Red Blood Count 4.30 MIL/uL (4.00-5.50) Hemoglobin 14.0 g/dL (12.0-16.0) Hematocrit 41.0 % (36-48) Mean Corpuscular Volume 95.3 fL (79-99) Mean Corpuscular Hemoglobin 32.6 pg (27.0-33.0) Mean Corpuscular Hemoglobin Concent 34.1 g/dL (32.0-36.0) Red Cell Distribution Width 13.1 % (11.0-15.5) Platelet Count 186 K/uL (130-400) Mean Platelet Volume 11.1 fL (7.5-10.5) H Immature Granulocyte % (Auto) 0.3 % (0-1) Neutrophils (%) (Auto) 82.4 % (40.0-77.0) H Lymphocytes (%) (Auto) 10.3 % (21.0-51.0) L Monocytes (%) (Auto) 6.1 % (3.0-13.0) Eosinophils (%) (Auto) 0.8 % (0.0-8.0) Basophils (%) (Auto) 0.1 % (0.0-5.0) Neutrophils # (Auto) 9.5 K/uL (1.8-7.7) H Lymphocytes # (Auto) 1.2 K/uL (1.0-4.8) Monocytes # (Auto) 0.7 K/uL (0.1-1.0) Eosinophils # (Auto) 0.09 K/uL (0.00-0.70) Basophils # (Auto) 0.01 K/uL (0.00-0.20) Absolute Immature Granulocyte (auto 0.03 K/uL (0-1) Nucleated Red Blood Cells 0.0 % (0.0-0.19) Sodium Level 142 mmol/L (136-145) Potassium Level 3.7 mmol/L (3.5-5.1) Chloride Level 104 mmol/L (101-111) Carbon Dioxide Level 32 mmol/L (21-32) Blood Urea Nitrogen 8 mg/dL (7-18) Creatinine 0.7 mg/dL (0.5-1.0) Glomerular Filtration Rate Calc 84 mL/min (>90) Random Glucose 145 mg/dL (70-105) H Total Calcium 8.4 mg/dL (8.5-10.1) L Labs Reviewed?: Yes EKG Comment: Date:03/29/24 Time:1211 Ventricular rate:58 MI interval:128 QRS duration:-27 QT/QTc:481/473 EKG interpretation: Ectopic atrial rhythm, abnormal T, consider ischemia, diffuse leads Reviewed by ED Attending no STEMI interpreted by ER MD ED Course ED Course Orders Procedure Category Date Status Time Cbc With Differential LAB 03/29/24 Complete 11:22 Basic Metabolic Panel LAB 03/29/24 Complete 11:22 12 Lead Ekg Tracing- EKG 03/29/24 Complete Technical 11:22 Troponin I High LAB 03/29/24 Complete Sensitivity 12:52 Vital Signs Date Time Temp Pulse Resp B/P (MAP) Pulse Ox O2 Delivery O2 Flow Rate FiO2 03/29/24 11:14 96.4 64 20 240/86 97 Medical Decision Making MDM MDM: 88-year-old female with a history of hypertension diabetes coming in complaining of nausea that happened earlier today. Patient states all the sympt oms have subsided. States she had three episodes of diarrhea, nonbloody and one episode of vomiting nonbloody. Patient states last night she had a cheese taco, states she has had this before however has not ever had it right before bed. At this time patient has no complaints. Blood work unremarkable. TROPONIN IS NEGATIVE. EKGs shows no ST elevations or dysrhythmias. PATIENT NOT COMPLAINING OF ANY CHEST PAIN OR CHEST DISCOMFORT Discussed with station findings. Educated patient that we will discharge her with antiemetics and she can take him as needed and follow up with her PCP. Gave her red flag symptoms and when to return back to the ER like severe nausea, vomiting, weak, fevers. Patient verbalized understanding, answered all questions. Differential diagnosis: GERD, gastroenteritis, gastritis, ACS Rationale: Tests considered and ordered secondary to shared decision making include: Previous outside records reviewed: Old ER visits. Risk of complication and/or morbidity or mortality of patient management: None Medications-Per medication reconciliation Need for hospitalization: Patient does not meet criteria for hospitalization. Need for emergency major/minor surgery: No There are no social concerns with this patient. Prescription drug management Prescriptions will include symptomatic care Patient's prior external medical records from other ER visits were reviewed by me as indicated. Prior testing and results from previous visits were reviewed. Prior tests were taken into account with medical decision making and resource utilization, independent historian/historians were used to obtain complete medical history. I independently interpreted the test that were performed, results were reviewed by me and considered findings on radiology if ordered. Medical management and examination interpretation discussions were had by me with other qualified healthcare professionals as indicated for the patient's care. DX & DISP Disposition: Discharge Departure Impression: Primary Impression: Viral gastroenteritis Condition: Stable Scripts Famotidine (Pepcid) 20 Mg Tablet 1 TAB PO BID for 30 Days, #60 TAB 0 Refills Prov: AZEB REYES NP 03/29/24 Referrals: ROJELIO RANDOLPH DO (PCP) Time of Disposition: 12:42 I have reviewed the case, and I agree with, Diagnosis and Plan AZEB REYES NP Mar 29, 2024 12:45
--- NOTE | 2024-03-29 13:40 | NUR ---
PT IS AOX4 ASSIGNED TO [facility] TR[facility] AT [facility]
[2024-03-29] MEDS: cloNIDine HCL 0.1 MG TABLET PO STA (15:44)
[2024-03-29 16:08] VITALS: BP 175/89; PULSE 64; RESP 18; TEMP 97; O2SAT 97
== END 2024-03-29 16:10 | disposition home or self-care (01) ==
LOC: EDH 11:13
DX: A08.4 Viral intestinal infection, unspecified (principal); E11.9 Type 2 diabetes mellitus without complications; E78.00 Pure hypercholesterolemia, unspecified; I10 Essential (primary) hypertension; J45.909 Unspecified asthma, uncomplicated; Z79.82 Long term (current) use of aspirin; Z79.84 Long term (current) use of oral hypoglycemic drugs; Z79.899 Other long term (current) drug therapy; Z90.49 Acquired absence of other specified parts of digestive tract; Z95.810 Presence of automatic (implantable) cardiac defibrillator
CPT/HCPCS: 36415; 80048; 84484; 85025; 93005; 99285

== ENCOUNTER 2024-05-19 11:17 | Observation (INO) | payer OTHER, MEDICARE ==
[~2024-05-19] VITALS: Ht 149.9 cm; Wt 46.9 kg
[~2024-05-19 11:17] MED LIST changes: +AEC81 PO; +AMLO-915 PO; -AMOX-426 PO; -ASPI-1026 PO; -CLON0.1T2 PO; -EMPA25TA PO; +ESOM40CA66 PO; +FAMO-136 PO; +FLUC200T96 PO; +FLUT1BLS3 IH; +HYDR25 PO; +LEVO-70 PO; -METH4TAB3 PO; -OMEP20CA12 PO; -TRAZ-185 PO
[2024-05-19 12:41] LABS: BASOPHILS # (AUTO) 0.02 K/uL (0.00-0.20); BASOPHILS % (AUTO) 0.4 % (0.0-5.0); EOSINOPHILS # (AUTO) 0.06 K/uL (0.00-0.70); EOSINOPHILS % (AUTO) 1.2 % (0.0-8.0); HEMATOCRIT 40.6 % (36-48); IMMATURE GRANULOCYTE ABSOLUTE 0.01 K/uL (0-1); LYMPHOCYTES # (AUTO) 1.4 K/uL (1.0-4.8); LYMPHOCYTES % (AUTO) 27.8 % (21.0-51.0); MEAN CORPUSCULAR HEMOGLOBIN 32.2 pg (27.0-33.0); MEAN CORPUSCULAR VOLUME 97.6 fL (79-99); MONOCYTES # (AUTO) 0.6 K/uL (0.1-1.0); MONOCYTES % (AUTO) 10.9 % (3.0-13.0); NEUTROPHILS # (AUTO) 3.1 K/uL (1.8-7.7); NEUTROPHILS % (AUTO) 59.5 % (40.0-77.0); PLATELET COUNT (AUTO) 190 K/uL (130-400); RED BLOOD CELL COUNT(AUTO) 4.16 MIL/uL (4.00-5.50); RED CELL DISTRIBUTION WIDTH 13.8 % (11.0-15.5); WHITE BLOOD COUNT (AUTO) 5.1 K/uL (4.8-10.8)
[2024-05-19 12:53] LABS: CREATININE 1.1 mg/dL (0.5-1.0); POTASSIUM 4.3 mmol/L (3.5-5.1)
[2024-05-19 12:58] LABS: MAGNESIUM 1.9 mg/dL (1.80-2.40)
[2024-05-19 13:01] LABS: INR <= 0.93 (0.85-1.15); PROTHROMBIN TIME 9.9 SEC (9.6-11.6)
[2024-05-19 13:02] LABS: PARTIAL THROMBOPLASTIN TIME 25.9 SEC (26.3-35.5)
[2024-05-19 13:12] LABS: B-TYPE NATRIURETIC PEPTIDE 164 pg/mL (0-100)
[2024-05-19] MEDS: LACTATED RINGERS 1000ML 1,000 ML IV ONE (14:26)
[2024-05-19] MEDS: hydrALAZine 20MG/ML VIAL IV ONE ×2 (14:26→17:21)
--- NOTE | 2024-05-19 14:26 | NUR ---
PT BP IS 200/65.INFORMED DR MOSELEY. 10 MG HYDRALAZIN IVP GIVEN.
--- NOTE | 2024-05-19 14:48 | HMCIMG ---
CHEST 1VW HISTORY: Weakness COMPARISON: 05/16/2024 FINDINGS: A frontal projection of the chest was obtained. No acute pulmonary infiltrates is seen. The heart is borderline enlarged. Prominent interstitial markings are seen. Pacemaker is seen entering from the right. Degenerative changes are seen. No evidence of aortic calcification is seen. IMPRESSION: 1. No acute pulmonary infiltrate is seen.
--- NOTE | 2024-05-19 15:22 | EKG ---
[facility] Test Date: 2024-05-19 Test Time: 11:57:29 Pat Name: TRAE MONZON Department: [facility] Room: 223 Gender: F Hydropress Operator: [id number] : 1935 Requested By: RYNE MOSELEY Order Number: [id number] Reading MD: Moshe Lucero Measurements Intervals [place] Rate: 69 P: 0 CO: 145 QRS: 2 QRSD: 90 T: 72 QT: 469 QTc: 501 Interpretive Statements Atrial-paced complexes Abnrm T, consider ischemia, anterolateral lds Prolonged QT interval Compared to ECG 05/16/2024 23:49:29 Possible ischemia now present Prolonged QT interval now present Left ventricular hypertrophy no longer present Early repolarization no longer present Q waves no longer present Electronically Signed On 05-24-2024 07:14:28 CDT by Moshe Lucero Please click the below link to view image of tracing.
--- NOTE | 2024-05-19 15:30 | NUR ---
PT'S BP REMAINS TO BE ELEVATED 10 MG AMILODIPINE GIVEN TO PATIENT FROM HER HOME MEDICATIONS.
[2024-05-19 15:35] LABS: SARS-CoV-2, RNA, NAAT NEGATIVE SARS CoV-2 (NEGATIVE)
[2024-05-19 15:40] LABS: INFLUENZA TYPE A Negative For Type A (NEGATIVE); INFLUENZA TYPE B Negative For Type B (NEGATIVE)
--- NOTE | 2024-05-19 15:41 | ERN ---
General Chief Complaint: Weakness Stated Complaint: GENERAL COMPLAINT Time Seen by MD: 11:20 Source: patient History of Present Illness Initial Comments Patient is here for evaluation and generalized body weakness muscle aches and fatigue. Per patient these symptoms has been ongoing for two days. Patient was told he was high blood pressure says he took one medication but has not taken all of it because she thought she only needed one. No fever or chills. Allergies: Coded Allergies: No Known Drug Allergies (Verified Allergy, Unknown, 04/18/19) Home Meds Active Scripts Fluconazole (Fluconazole) 200 Mg Tablet, 200 MG PO DAILY for 13 Days, #13 TAB Prov:MIGUEL PECK MD 05/10/24 Hydralazine HCl (Apresoline) 25 Mg Tab, 75 MG PO TID, #120 TAB Prov:MIGUEL PECK MD 05/10/24 Amlodipine Besylate (Norvasc) 10 Mg Tablet, 1 TAB PO DAILY for 30 Days, #30 TAB 0 Refills Prov:MIGUEL PECK MD 05/09/24 Hydralazine HCl (Apresoline) 25 Mg Tab, 50 MG PO TID, #60 TAB Prov:CANDI JACOME OFFSET PROOF PRESS OPERATOR 05/05/24 Levofloxacin (Levofloxacin) 500 Mg Tablet, 1 TAB PO DAILY for 10 Days, #10 TAB 0 Refills Prov:CANDI JACOME OFFSET PROOF PRESS OPERATOR 05/05/24 Aspirin (ASPIRIN 81 MG ECTAB) 81 Mg Ectab, 81 MG PO DAILY, #60 TAB.EC Prov:CANDI JACOME OFFSET PROOF PRESS OPERATOR 05/05/24 Famotidine (Pepcid) 20 Mg Tablet, 1 TAB PO BID for 30 Days, #60 TAB 0 Refills Prov:AZEB REYES NP 03/29/24 Furosemide (Lasix 20Mg Tab) 20 Mg Tablet, 20 MG PO DAILY for 30 Days, #30 TAB Prov:FILI ALTAMIRANO 05/06/22 Reported Medications Fluticasone/Umeclidin/Vilanter (Trelegy Ellipta 100-62.5-25) 100-62.5 Blst.w.d ev, 1 PUFF IH DAILY for 30 Days, #1 EACH 0 Refills 05/02/24 Esomeprazole Magnesium (Esomeprazole Magnesium) 40 Mg Capsule.dr, 1 CAP PO DAILY for acid reflux 05/02/24 Montelukast Sodium (Montelukast Sodium) 10 Mg Tablet, 10 MG PO HS, TAB 05/03/22 Cholecalciferol (Vitamin D3) (Vitamin D3) 125 Mcg Tablet, 125 MCG PO DAILY, TAB 05/02/22 Calcium Carbonate/Mag Carb (Magnebind 400 Tablet) 1 Each Tablet, 1 EACH PO DAILY, TAB 05/02/22 Albuterol Sulfate (Proair Hfa) 8.5 Gm Hfa.aer.ad, 8.5 GM IH TID for SOB 12/23/18 Losartan Potassium (Losartan Potassium) 100 Mg Tablet, 100 MG PO DAILY, TAB 12/23/18 Pravastatin Sodium (Pravastatin Sodium) 20 Mg Tablet, 40 MG PO HS, TAB 12/23/18 Metformin HCl (Metformin HCl) 500 Mg Tablet, 1000 MG PO BID, TAB 12/07/16 Past Medical History Past Medical History: Asthma, Diabetes-Type II, High Cholesterol, Hypertension Past Surgical History: Pacer/AICD Family History Family History: Negative Social History Social History: Negative, Lives with family Female( History) History: Not Applicable ROS Dictation CONSTITUTIONAL: No chills, no fever, weakness, no diaphoresis, malaise. HEAD/FACE: No signs of trauma. EENT: No eye pain, no blurred vision, no tearing, no double vision, no ear pain, no ear discharge, no nose pain, no nasal congestion, no throat pain, no throat swelling, no mouth pain. RESPIRATORY: No cough, no orthopnea, no SOB, no stridor, no wheezing. CARDIOVASCULAR: No chest pain, no edema, no palpitations, no syncope. GASTROINTESTINAL/ABDOMINAL: No abdominal pain, no constipation, no diarrhea, no nausea, no vomiting. GENITOURINARY: No abnormal discharge, no dysuria, no frequent urination, no hematuria. No complaints of pain in the genitals. MUSCULOSKELETAL: No back pain, no gout, no joint pain, no joint swelling, no muscle pain, no muscle stiffness, no neck pain. INTEGUMENTARY: No change in color, no change in hair/nails, no dryness, no lesion, no lumps, no rash. NEUROLOGICAL/PSYCH: No anxiety, not depressed, no emotional problem, no headache, no numbness, no pre-existing deficit, no history of seizures, no tremors, no weakness. HEMATOLOGIC/LYMPHATIC: Not anemic, no history of blood clots, no apparent bleeding, no bruising, glands not swollen. All Systems Negative, Except as Noted. Physical Exam Physical Exam Dictation VITAL SIGNS: Reviewed. GENERAL APPEARANCE: Alert, oriented x3, no acute distress, obese. HEAD AND FACE: Non-traumatic. EYES: PERRL, pink conjunctivas, eyelid no trauma, anterior chamber clear. EARS: Pinnas intact and no signs of trauma or erythema. Ear canals clear and no discharge. TMs no erythema. NOSE: No discharge, no bleeding. OROPHARYNX: Mouth normal, teeth no caries, tongue pink. Pharynx clear, no erythema. Tonsils no exudates, no abscesses noted. Mucous membrane moist. NECK: Supple, non-tender, no thyromegaly, no masses, no JVD, no bruits. BREAST: Deferred. CHEST: No tenderness, no crepitus, no paradoxical movement, no retractions. LUNGS: Clear, well-ventilated, symmetric, no rales, no wheezing, no rhonchi, no stridor, good breath sounds bilaterally. HEART: Regular rate, regular rhythm, no murmur, no gallops. VASCULAR: No peripheral edema. ABDOMEN: Soft, positive bowel sounds, nondistended, no guarding, nontender, no rebound, no masses no hepatomegaly, no splenomegaly, no Comer's sign, no hernias. RECTAL: Deferred. GENITAL: Deferred. NEUROLOGICAL: Normal speech, gross motor function intact, gross sensory function intact. MUSCULOSKELETAL: Neck nontender, full range of motion, back nontender, full range of motion. EXTREMITIES: Nontender, full range of motion. SKIN: Color pink, dry, no turgor, no rash, no lacerations, no abrasions, no contusions. LYMPHATICS: Deferred. Results Laboratory and Microbiology Lab and Micro Result Laboratory Tests Test 05/19/24 12:33 05/19/24 15:07 05/19/24 15:24 White Blood Count 5.1 K/uL (4.8-10.8) Red Blood Count 4.16 MIL/uL (4.00-5.50) Hemoglobin 13.4 g/dL (12.0-16.0) Hematocrit 40.6 % (36-48) Mean Corpuscular Volume 97.6 fL (79-99) Mean Corpuscular Hemoglobin 32.2 pg (27.0-33.0) Mean Corpuscular Hemoglobin Concent 33.0 g/dL (32.0-36.0) Red Cell Distribution Width 13.8 % (11.0-15.5) Platelet Count 190 K/uL (130-400) Mean Platelet Volume 10.6 fL (7.5-10.5) H Immature Granulocyte % (Auto) 0.2 % (0-1) Neutrophils (%) (Auto) 59.5 % (40.0-77.0) Lymphocytes (%) (Auto) 27.8 % (21.0-51.0) Monocytes (%) (Auto) 10.9 % (3.0-13.0) Eosinophils (%) (Auto) 1.2 % (0.0-8.0) Basophils (%) (Auto) 0.4 % (0.0-5.0) Neutrophils # (Auto) 3.1 K/uL (1.8-7.7) Lymphocytes # (Auto) 1.4 K/uL (1.0-4.8) Monocytes # (Auto) 0.6 K/uL (0.1-1.0) Eosinophils # (Auto) 0.06 K/uL (0.00-0.70) Basophils # (Auto) 0.02 K/uL (0.00-0.20) Absolute Immature Granulocyte (auto 0.01 K/uL (0-1) Nucleated Red Blood Cells 0.0 % (0.0-0.19) Prothrombin Time 9.9 SEC (9.6-11.6) Prothromb Time International Ratio <= 0.93 (0.85-1.15) Activated Partial Thromboplast Time 25.9 SEC (26.3-35.5) L Sodium Level 142 mmol/L (136-145) Potassium Level 4.3 mmol/L (3.5-5.1) Chloride Level 103 mmol/L (101-111) Carbon Dioxide Level 26 mmol/L (21-32) Blood Urea Nitrogen 13 mg/dL (7-18) Creatinine 1.1 mg/dL (0.5-1.0) H Glomerular Filtration Rate Calc 48 mL/min (>90) Random Glucose 121 mg/dL (70-105) H Total Calcium 9.8 mg/dL (8.5-10.1) Magnesium Level 1.90 mg/dL (1.80-2.40) Total Creatine Kinase 56 U/L (21-232) # Troponin I High Sensitivity 21 ng/L (4-50) B-Type Natriuretic Peptide 164 pg/mL (0-100) H Influenza Type A Antigen Negative For Type A Influenza Type B Antigen Negative For Type B SARS-CoV-2, RNA, NAAT NEGATIVE SARS CoV-2 Urine Color COLORLESS (YELLOW) Urine Appearance CLEAR (CLEAR) Urine pH 7.0 (5.0-8.0) Urine Specific [place] 1.003 (1.001-1.031) Urine Protein NEGATIVE mg/dL (NEGATIVE) Urine Glucose (UA) NEGATIVE mg/dL (NEGATIVE) Urine Ketones NEGATIVE mg/dL (NEGATIVE) Urine Occult Blood NEGATIVE (NEGATIVE) Urine Nitrate NEGATIVE (NEGATIVE) Urine Bilirubin NEGATIVE mg/dL (NEGATIVE) Urine Urobilinogen 0.2 mg/dL (0.2-1.0) Urine Leukocyte Esterase NEGATIVE Je/uL Labs Reviewed?: Yes EKG/XRAY/US/CT/[place] [address] IMAGING REPORT Signed PATIENT: TRAE MONZON MR#: [id number] : 1935 SEX: F AGE: 89 LOCATION: [facility] ORDER [id number] STATUS: REG REPORT#: [id number] SERVICE 1135 REASON: weakness ORDERING PHYSICIAN: RYNE MOSELEY MD PROCEDURE: CXR1VW - CHEST 1VW CHEST 1VW HISTORY: Weakness COMPARISON: 05/16/2024 FINDINGS: A frontal projection of the chest was obtained. No acute pulmonary infiltrates is seen. The heart is borderline enlarged. Prominent interstitial markings are seen. Pacemaker is seen entering from the right. Degenerative changes are seen. No evidence of aortic calcification is seen. IMPRESSION: 1. No acute pulmonary infiltrate is seen. DICTATED BY: ANTOINE WHEELER MD DATE: 04/04/25 1445 ELECTRONICALLY SIGNED BY: ANTOINE WHEELER MD DATE: 05/19/24 144 [facility] MDM: Differential diagnosis: Malignant hypertension, hypertension uncontrolled, Rationale: Tests considered and ordered secondary to shared decision making include: labs, ECG and radiology Previous outside records reviewed: Old ER visits. Risk of complication and/or morbidity or mortality of patient management: None Medications-Per medication reconciliation Need for hospitalization: Patient does meet criteria for hospitalization. Need for emergency major/minor surgery: No There are no social concerns with this patient. Prescription drug management Prescriptions will include symptomatic care Patient's prior external medical records from other ER visits were reviewed by me as indicated. Prior testing and results from previous visits were reviewed. Prior tests were taken into account with medical decision making and resource utilization, independent historian/historians were used to obtain complete medical history. I independently interpreted the test that were performed, results were reviewed by me and considered findings on radiology if ordered. Medical management and examination interpretation discussions were had by me with other qualified healthcare professionals as indicated for the patient's c are. Patient will be admitted under the care of [facility] for ongoing management of malignant hypertension, ED Course Orders Procedure Category Date Status Time Cbc With Differential LAB 05/19/24 Complete 11:35 Prothrombin Time With LAB 05/19/24 Complete INR 11:35 B-Type Natriuretic LAB 05/19/24 Complete Peptide 11:35 Chest 1vw RAD 05/19/24 Resulted 11:35 12 Lead Ekg Tracing- EKG 05/19/24 Complete Technical 11:35 Lactated Ringers PHA 05/19/24 Complete 1000ml (Lactated 12:00 Magnesium LAB 05/19/24 Complete 11:35 Creatine Kinase, Total LAB 05/19/24 Complete 11:35 Troponin I High LAB 05/19/24 Complete Sensitivity 11:35 Urinalysis Profile LAB 05/19/24 Complete 11:35 Partial LAB 05/19/24 Complete Thromboplastin Time 11:35 Basic Metabolic Panel LAB 05/19/24 Complete 11:35 Covid Rna Naat LAB 05/19/24 Complete 11:35 Influenza Type A & B, LAB 05/19/24 Complete Rapid 11:35 Hydralazine 20mg Inj PHA 05/19/24 Complete (Apresoline 20mg In 14:00 Hydralazine 20mg Inj PHA 05/19/24 Complete (Apresoline 20mg In 16:00 Current Medications Medications (Trade) Dose Ordered Sig/Theo Route PRN Reason Start Time Stop Time Status Last Admin Dose Admin Hydralazine HCl (APRESOLine 20MG INJ) 10 mg ONCE ONCE IV 05/19/24 14:00 05/19/24 14:01 DC 05/19/24 14:26 Hydralazine HCl (APRESOLine 20MG INJ) 10 mg ONCE ONCE IV 05/19/24 16:00 05/19/24 16:01 DC Lactated Ringer's 1,000 ml @ 0 mls/hr ONCE ONCE IV 05/19/24 12:00 05/19/24 12:01 DC 05/19/24 14:26 Vital Signs Date Time Temp Pulse Resp B/P (MAP) Pulse Ox O2 Delivery O2 Flow Rate FiO2 05/19/24 15:30 61 18 207/61 98 Room Air* 0 21 05/19/24 15:00 55 18 243/82 97 Room Air* 0 21 05/19/24 14:30 55 18 200/65 97 Room Air* 0 21 05/19/24 14:00 56 18 239/68 96 Room Air* 0 21 05/19/24 12:02 98.2 66 16 200/68 98 Room Air 0 Critical Care Note Comments Critical Care Procedure Note Authorized and Performed by: me Total critical care time: Approximately 36 minutes Due to a high probability of clinically significant, life threatening deterioration, the patient required my highest level of preparedness to intervene emergently and I personally spent this critical care time directly and personally managing the patient. This critical care time included obtaining a history; examining the patient; pulse oximetry; ordering and review of studies; arranging urgent treatment with development of a management plan; evaluation of patient's response to treatment; frequent reassessment; and, discussions with other providers. This critical care time was performed to assess and manage the high probability of imminent, life-threatening deterioration that could result in multi-organ failure. It was exclusive of separately billable procedures and treating other patients and teaching time. Please see MDM section and the rest of the note for further information on patient assessment and treatment. DX & DISP Disposition: Inpatient Decision to Admit Time: 17:12 Departure Impression: Primary Impression: Malignant hypertension Condition: Stable Referrals: ROJELIO RANDOLPH DO (PCP) RYNE MOSELEY MD May 19, 2024 15:40
[2024-05-19 15:49] LABS: APPEARANCE,URINE CLEAR (CLEAR); BILIRUBIN,URINE NEGATIVE (NEGATIVE); COLOR,URINE COLORLESS (YELLOW); GLUCOSE, URINE (UA) NEGATIVE (NEGATIVE); KETONES,URINE NEGATIVE (NEGATIVE); LEUKOCYTE ESTERASE ,URINE NEGATIVE Leu/uL (NEGATIVE); NITRATE,URINE NEGATIVE (NEGATIVE); OCCULT BLOOD,URINE NEGATIVE (NEGATIVE); PROTEIN,URINE NEGATIVE (NEGATIVE); UROBILINOGEN,URINE 0.2 mg/dL (0.2-1.0)
[2024-05-19 15:52] LABS: ADD UA MICROSCOPIC NO
--- NOTE | 2024-05-19 19:59 | HP ---
[facility] HISTORY & PHYSICAL Date Patient Seen: May 19, 2024 Time of Visit: 19:59 Supervising Physician: Dr. Frey Primary Care Physician: Dr. Gill Lara Outpatient Specialists: Inpatient Consults: PROBLEM LIST: Malignant hypertension Acute on chronic renal disease. Diabetes mellitus with hyperglycemia Fluid overload Multiple ED visits CHRONIC PROBLEM LIST: HTN, DM, HDL, CAD s/p pacemaker, asthma HPI: Ms. Garza is an 81-year-old female with a history of HTN, DM, HDL, CAD s/p pacemaker, asthma who presented to [facility] ED for evaluation of generalized body weakness, muscle aches, and fatigue onset for two days. ED physician reported that the patient stated she took one medication but has not taken all of it because she thought she only needed one. The patient was assessed by me in ED . The patient reported that she does take medications as prescribed. She reports that she takes three medication, does not know the name, but is given to her by her provider. The patient denied any fever, chills, chest pain, shortness of breath, dizziness, headache, any other pain, problem or concern. Per chart review the patient also presented on 05/07/2024 for the same complaint of general body weakness and hypertension. ED provider request patient be admitted with the diagnosis of malignant hypertension. During my assessment ED 4, the patient appeared comfortable, in no distress. was at bedside. Breathing was even, and unlabored. Patient was informed of the labs, diagnostics, and plan of care. She verbalized understanding and is in agreement with the plan. Plan and assessment are listed below. PAST MEDICAL HX: see above PAST SURGICAL HX: Pacemaker/AICD SOCIAL HISTORY: No tobacco, ETOH, or illicit drug use Coded Allergies: No Known Drug Allergies (Verified Allergy, Unknown, 04/18/19) REVIEW OF SYSTEMS: 12 point ROS reviewed with patient. Pertinent positives mentioned above. Otherwise negative. PHYSICAL EXAM: GENERAL: Alert, weak, awake oriented x 3 HEENT: EOMI, Sclera non icteric, moist mucosa NECK: Supple, no JVD, trachea midline LUNGS: Clear breath sounds bilaterally. No wheezes HEART: Regular rate and rhythm. Normal S1 and S2, without murmurs ABD: Abdomen soft, nontender. Bowel sounds present EXT: No clubbing cyanosis or edema NEURO: Alert and oriented to person, follows commands Vital Signs (last 8hr) Date Time Temp Pulse Resp B/P (MAP) Pulse Ox O2 Delivery O2 Flow Rate FiO2 05/19/24 18:30 67 16 153/50 97 Room Air* 0 05/19/24 17:30 97.9 66 18 162/43 98 Room Air* 0 21 05/19/24 16:30 97.9 62 18 169/49 98 Room Air* 0 05/19/24 16:00 218/62 Room Air* 0 05/19/24 15:30 61 18 207/61 98 Room Air* 0 05/19/24 15:00 55 18 243/82 97 Room Air* 0 05/19/24 14:30 55 18 200/65 97 Room Air* 0 05/19/24 14:00 56 18 239/68 96 Room Air* 0 05/19/24 12:02 98.2 66 16 200/68 98 Room Air 0 LABS: Hematology Labs: Test 05/19/24 12:33 Range/Units White Blood Count 5.1 4.8-10.8 K/uL Red Blood Count 4.16 4.00-5.50 MIL/uL Hemoglobin 13.4 12.0-16.0 g/dL Hematocrit 40.6 36-48 % Mean Corpuscular Volume 97.6 79-99 fL Mean Corpuscular Hemoglobin 32.2 27.0-33.0 pg Mean Corpuscular Hemoglobin Concent 33.0 32.0-36.0 g/dL Red Cell Distribution Width 13.8 11.0-15.5 % Platelet Count 190 130-400 K/uL Mean Platelet Volume 10.6 H 7.5-10.5 fL Immature Granulocyte % (Auto) 0.2 0-1 % Neutrophils (%) (Auto) 59.5 40.0-77.0 % Lymphocytes (%) (Auto) 27.8 21.0-51.0 % Monocytes (%) (Auto) 10.9 3.0-13.0 % Eosinophils (%) (Auto) 1.2 0.0-8.0 % Basophils (%) (Auto) 0.4 0.0-5.0 % Neutrophils # (Auto) 3.1 1.8-7.7 K/uL Lymphocytes # (Auto) 1.4 1.0-4.8 K/uL Monocytes # (Auto) 0.6 0.1-1.0 K/uL Eosinophils # (Auto) 0.06 0.00-0.70 K/uL Basophils # (Auto) 0.02 0.00-0.20 K/uL Absolute Immature Granulocyte (auto 0.01 0-1 K/uL Nucleated Red Blood Cells 0.0 0.0-0.19 % Chemistry Labs: Test 05/19/24 12:33 Range/Units Sodium Level 142 136-145 mmol/L Potassium Level 4.3 3.5-5.1 mmol/L Chloride Level 103 101-111 mmol/L Carbon Dioxide Level 26 21-32 mmol/L Blood Urea Nitrogen 13 7-18 mg/dL Creatinine 1.1 H 0.5-1.0 mg/dL Glomerular Filtration Rate Calc 48 >90 mL/min Random Glucose 121 H 70-105 mg/dL Total Calcium 9.8 8.5-10.1 mg/dL Magnesium Level 1.90 1.80-2.40 mg/dL Total Creatine Kinase 56 # 21-232 U/L Troponin I High Sensitivity 21 4-50 ng/L B-Type Natriuretic Peptide 164 H 0-100 pg/mL Coagulation Labs: Test 05/19/24 12:33 Range/Units Prothrombin Time 9.9 9.6-11.6 SEC Prothromb Time International Ratio <= 0.93 0.85-1.15 Activated Partial Thromboplast Time 25.9 L 26.3-35.5 SEC DIAGNOSTICS / RADIOLOGY RESULTS: [ ] PLAN Admit to medical floor with telemetry monitoring. Resume home medication amlodipine, hydralazine, losartan, trazodone, pravastatin, potassium 10 mEq, multivitamins, montelukast, trilogy Ellipta, Pepcid, esomeprazole. Education done on taking blood blood pressure readings at home, take them to PCP for evaluation of need to change blood pressure medications. Education on medication compliance. Echo in the morning. Monitor renal and liver function. Monitor electrolytes and treat accordingly. DVT and GI prophylaxis. A.m. medications. NEURO: Minimize central acting medications as possible. Maintain fall precautions, adequate lighting during the day PULMONARY: Supplemental 02 as needed. Maintain aspiration precautions at all times CARDIOVASCULAR: Follow hemodynamics. Vital signs per facility protocol GI & NUTRITION: Continue with nutritional support. Continue stool softeners and laxatives as needed. KIDNEYS & ELECTROLYTES: Strict monitoring of intake, output and overall fluid balance. Avoid nephrotoxic medications to the extent possible. Medications to be dosed according to renal function. Monitor electrolytes and replace as needed ENDOCRINE: Maintain blood glucose between 100-180 at all times. Hypoglycemia protocol in place INFECTIOUS DISEASE: Trend temperature, WBC and procalcitonin level Follow cultures, deescalate antibiotics as soon as possible. Panculture if new onset fever ONCOLOGY/HEMATOLOGY/COAGULATION: Monitor for s/s of bleeding Monitor hemoglobin, coagulation studies as needed SKIN: Pressure ulcer prevention per facility protocol Specialty mattress ORTHO/REHAB: Continue PT/OT Prophylaxis: Continue GI and DVT prophylaxis Code Status: Full Resuscitation Disposition: TELMA SEEP May 19, 2024 19:59
[2024-05-19] MEDS ORDERED: doCUSate SODIUM 100 MG CAP PO PRN (20:00)
[2024-05-19] MEDS ORDERED: ondanSETRON 4MG INJ IVP PRN (20:00)
[2024-05-19] MEDS ORDERED: TEMAZepam 15 MG CAPSULE PO PRN (20:00)
[2024-05-19] MEDS ORDERED: acetaMINOPHEN 325 MG TAB PO PRN (20:00)
[2024-05-19] MEDS ORDERED: LACTULOSE 20 GM/30 ML UDCUP PO PRN (20:00)
[2024-05-19] MEDS ORDERED: acetaMINOPHEN 650 MG SUPPOSITORY RC PRN (20:00)
[2024-05-19] MEDS ORDERED: cloNIDine HCL 0.1 MG TABLET PO PRN (20:00)
[2024-05-19] MEDS ORDERED: HYDR25TA67 PO (20:45)
[2024-05-19] MEDS ORDERED: FLUT1BLS3 IH (20:45)
[2024-05-19] MEDS ORDERED: FAMO20TA8 PO (20:45)
[2024-05-19] MEDS ORDERED: LOSA100T59 PO (20:45)
[2024-05-19] MEDS ORDERED: POTA10CA95 PO (20:45)
[2024-05-19] MEDS ORDERED: METF-446 PO (20:45)
[2024-05-19] MEDS ORDERED: PRAV40TA3 PO (20:45)
[2024-05-19] MEDS ORDERED: AMLO-258 PO (20:45)
[2024-05-19] MEDS ORDERED: TRAZ-187 PO (20:45)
[2024-05-19] MEDS ORDERED: MONT-39 PO (20:45)
[2024-05-19] MEDS ORDERED: MULT-1367 PO (20:45)
[2024-05-19] MEDS ORDERED: ESOM40CA66 PO (20:45)
[2024-05-19] MEDS: atorVAStatin 40 MG TABLET PO SCH (20:55)
[2024-05-19] MEDS: INSULIN humuLIN R 100 UNIT/ML 3ML SQ SCH (20:59)
[2024-05-19] MEDS: LAbetaLOL 20MG SYG IV PRN (23:29)
--- NOTE | 2024-05-20 07:05 | NUR ---
[facility]
--- NOTE | 2024-05-20 07:44 | PN ---
[facility] PROGRESS NOTE Date Patient Seen: May 20, 2024 Time of Visit: 07:44 Supervising Physician: [ ] Primary Care Physician: Dr. Gill Lara Outpatient Specialists: Inpatient Consults: PROBLEM LIST: Malignant hypertension Acute on chronic renal disease. Diabetes mellitus with hyperglycemia Fluid overload Multiple ED visits CHRONIC PROBLEM LIST: HTN, DM, HDL, CAD s/p pacemaker, asthma INTERVAL HISTORY: [ ] REVIEW OF SYSTEMS: 12 point ROS reviewed with patient. Pertinent positives mentioned above. Otherwise negative. PHYSICAL EXAM: GENERAL: Alert, weak, awake oriented x 3 HEENT: EOMI, Sclera non icteric, moist mucosa NECK: Supple, no JVD, trachea midline LUNGS: Clear breath sounds bilaterally. No wheezes HEART: Regular rate and rhythm. Normal S1 and S2, without murmurs ABD: Abdomen soft, nontender. Bowel sounds present EXT: No clubbing cyanosis or edema NEURO: Alert and oriented to person, follows commands Vital Signs (last 8hr) Date Time Temp Pulse Resp B/P (MAP) Pulse Ox O2 Delivery O2 Flow Rate FiO2 05/20/24 04:09 98.2 60 20 141/53 96 Room Air* 0 21 LABS: Hematology Labs: Test 05/19/24 12:33 Range/Units White Blood Count 5.1 4.8-10.8 K/uL Red Blood Count 4.16 4.00-5.50 MIL/uL Hemoglobin 13.4 12.0-16.0 g/dL Hematocrit 40.6 36-48 % Mean Corpuscular Volume 97.6 79-99 fL Mean Corpuscular Hemoglobin 32.2 27.0-33.0 pg Mean Corpuscular Hemoglobin Concent 33.0 32.0-36.0 g/dL Red Cell Distribution Width 13.8 11.0-15.5 % Platelet Count 190 130-400 K/uL Mean Platelet Volume 10.6 H 7.5-10.5 fL Immature Granulocyte % (Auto) 0.2 0-1 % Neutrophils (%) (Auto) 59.5 40.0-77.0 % Lymphocytes (%) (Auto) 27.8 21.0-51.0 % Monocytes (%) (Auto) 10.9 3.0-13.0 % Eosinophils (%) (Auto) 1.2 0.0-8.0 % Basophils (%) (Auto) 0.4 0.0-5.0 % Neutrophils # (Auto) 3.1 1.8-7.7 K/uL Lymphocytes # (Auto) 1.4 1.0-4.8 K/uL Monocytes # (Auto) 0.6 0.1-1.0 K/uL Eosinophils # (Auto) 0.06 0.00-0.70 K/uL Basophils # (Auto) 0.02 0.00-0.20 K/uL Absolute Immature Granulocyte (auto 0.01 0-1 K/uL Nucleated Red Blood Cells 0.0 0.0-0.19 % Chemistry Labs: Test 05/19/24 20:58 05/19/24 12:33 Range/Units Whole Blood Glucose 130 H 70-110 MG/DL Sodium Level 142 136-145 mmol/L Potassium Level 4.3 3.5-5.1 mmol/L Chloride Level 103 101-111 mmol/L Carbon Dioxide Level 26 21-32 mmol/L Blood Urea Nitrogen 13 7-18 mg/dL Creatinine 1.1 H 0.5-1.0 mg/dL Glomerular Filtration Rate Calc 48 >90 mL/min Random Glucose 121 H 70-105 mg/dL Total Calcium 9.8 8.5-10.1 mg/dL Magnesium Level 1.90 1.80-2.40 mg/dL Total Creatine Kinase 56 # 21-232 U/L Troponin I High Sensitivity 21 4-50 ng/L B-Type Natriuretic Peptide 164 H 0-100 pg/mL Coagulation Labs: Test 05/19/24 12:33 Range/Units Prothrombin Time 9.9 9.6-11.6 SEC Prothromb Time International Ratio <= 0.93 0.85-1.15 Activated Partial Thromboplast Time 25.9 L 26.3-35.5 SEC DIAGNOSTICS / RADIOLOGY RESULTS: [ ] PLAN Admit to medical floor with telemetry monitoring. Resume home medication amlodipine, hydralazine, losartan, trazodone, pravastatin, potassium 10 mEq, multivitamins, montelukast, trilogy Ellipta, Pepcid, esomeprazole. Education done on taking blood blood pressure readings at home, take them to PCP for evaluation of need to change blood pressure medications. Education on medication compliance. Echo in the morning. Monitor renal and liver function. Monitor electrolytes and treat accordingly. DVT and GI prophylaxis. A.m. medications. NEURO: Minimize central acting medications as possible. Maintain fall precautions, adequate lighting during the day PULMONARY: Supplemental 02 as needed. Maintain aspiration precautions at all times CARDIOVASCULAR: Follow hemodynamics. Vital signs per facility protocol GI & NUTRITION: Continue with nutritional support. Continue stool softeners and laxatives as needed. KIDNEYS & ELECTROLYTES: Strict monitoring of intake, output and overall fluid balance. Avoid nephrotoxic medications to the extent possible. Medications to be dosed according to renal function. Monitor electrolytes and replace as needed ENDOCRINE: Maintain blood glucose between 100-180 at all times. Hypoglycemia protocol in place INFECTIOUS DISEASE: Trend temperature, WBC and procalcitonin level Follow cultures, deescalate antibiotics as soon as possible. Panculture if new onset fever ONCOLOGY/HEMATOLOGY/COAGULATION: Monitor for s/s of bleeding Monitor hemoglobin, coagulation studies as needed SKIN: Pressure ulcer prevention per facility protocol Specialty mattress ORTHO/REHAB: Continue PT/OT Prophylaxis: Continue GI and DVT prophylaxis Code Status: Full Resuscitation Disposition: SHELLEY COLINDRES May 20, 2024 07:44
--- NOTE | 2024-05-20 07:49 | NUR ---
REPORT GIVEN TO PAM AU.
[2024-05-20] MEDS: metFORmin HCL 500 MG TABLET PO SCH (08:00)
[2024-05-20 08:14] LABS: HEMATOCRIT 40.3 % (36-48); MEAN CORPUSCULAR HGB CONC 32.5 g/dL (32.0-36.0); MEAN CORPUSCULAR VOLUME 98.5 fL (79-99); RED BLOOD CELL COUNT(AUTO) 4.09 MIL/uL (4.00-5.50); WHITE BLOOD COUNT (AUTO) 6.8 K/uL (4.8-10.8)
[2024-05-20 08:30] VITALS: BP 149/67; PULSE 65; RESP 18; TEMP 98.4
[2024-05-20 08:42] LABS: CREATININE 0.9 mg/dL (0.5-1.0); MAGNESIUM 1.7 mg/dL (1.80-2.40); PHOSPHORUS 3.4 mg/dL (2.5-4.9); THYROID STIMULATING HORMONE 1.71 uIU/mL (0.36-3.74)
[2024-05-20] MEDS ORDERED: LoSARTan 100 MG TABLET PO SCH (09:00)
[2024-05-20] MEDS ORDERED: NON-FORMULARY MEDICATION 1 EACH (Esomeprazole Magnesium 1 CAP) PO SCH (09:00)
[2024-05-20] MEDS: Fluticasone/Umeclidin/Vilanter (Trelegy Ellipta 100-62.5- IH SCH (09:00)
[2024-05-20] MEDS ORDERED: POTASSIUM CHLORIDE PO SCH (09:00)
[2024-05-20] MEDS: MULTIVITAMIN TABLET PO SCH (09:30)
[2024-05-20] MEDS: FAMOTIDINE 20MG TAB PO SCH (09:30)
[2024-05-20] MEDS: monteLUKAST sodIUM 10 MG TAB PO SCH (09:30)
[2024-05-20] MEDS: hydrALAZine 25MG TABLET PO SCH (09:30)
[2024-05-20 09:53] VITALS: O2SAT 98
[2024-05-20] MEDS ORDERED: HYDR25 PO (11:15)
[2024-05-20] MEDS ORDERED: AMLO1CAP88 PO (11:15)
[2024-05-20] MEDS ORDERED: CLON0.1T2 PO (11:15)
[2024-05-20 11:16] VITALS: BP 135/62; PULSE 61; RESP 18; TEMP 97.8
--- NOTE | 2024-05-20 11:25 | DS ---
[facility] DISCHARGE SUMMARY Date Patient Seen: May 20, 2024 Time of Visit: 11:25 Supervising Physician: aDrin Frey MD Primary Care Physician: Dr. Gill Lara Outpatient Specialists: Inpatient Consults: PROBLEM LIST: Malignant hypertension, resolved Acute on chronic renal disease, resolved Diabetes mellitus with hyperglycemia Fluid overload, resolved Multiple ED visits CHRONIC PROBLEM LIST: HTN, DM, HDL, CAD s/p pacemaker, asthma HOSPITAL COURSE: HPI Ms. Garza is an 81-year-old female with a history of HTN, DM, HDL, CAD s/p pacemaker, asthma who presented to [facility] ED for evaluation of generalized body weakness, muscle aches, and fatigue onset for two days.On admission, she was unable to recall her current antihypertensive medications. 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 She and her family were educated extensively on medication adherence and the importance of blood pressure management, Her renal function normalized by the next day with supportive BP optimization. Antihypertensives were reviewed and adjusted accordingly. Hes symptoms of GBW and muscle aches were alleviated by today. She has been afebrile and hemodynamically stable with the latest blood pressure of 135/62 .HR 61, RR 18 and saturating 94% at room air. Her magnesium level was 1.70 this morning so it will be covere per amg protocol and then she can be discharged home with family. Pt and family in agreement. ACTIVE PROBLEM LIST FOR THE HOSPITALIZATION: CHRONIC PROBLEMS: continue previous management per PCP unless otherwise indicated AUTOMATION APPLICATION ENGINEER FINDINGS/RECOMMENDATIONS: [ ] PROCEDURES: as mentioned above DISCHARGE MEDICATIONS: Pt hemodynamically stable and afebrile at time of discharge. PCP notified of patients admission, hospital course and discharge. New Medications: Amlodipine Besylate/Benazepril (Lotrel 5-10 mg) 5 Mg-10 Mg Capsule 1 EACH PO DAILY22, #30 CAP 1 Refill Clonidine HCl (Catapress) 0.1 Mg Tab 0.2 MG PO Q6H PRN for IF SBP GREATER THAN 180, #60 TAB 0 Refills Hydralazine HCl (Apresoline) 25 Mg Tab 25 MG PO TID, #90 TAB 1 Refill Continued Medications: Albuterol Sulfate (Proair Hfa) 8.5 Gm Hfa.aer.ad 8.5 GM IH TID for SOB Aspirin (Aspirin 81 Mg Ectab) 81 Mg Ectab 81 MG PO DAILY, #60 TAB.EC Calcium Carbonate/Mag Carb (Magnebind 400 Tablet) 1 Each Tablet 1 EACH PO DAILY, TAB Cholecalciferol (Vitamin D3) (Vitamin D3) 125 Mcg Tablet 125 MCG PO DAILY, TAB Esomeprazole Magnesium (Esomeprazole Magnesium) 40 Mg Capsule.dr 1 CAP PO DAILY for 30 Days, #30 CAP 0 Refills Fluticasone/Umeclidin/Vilanter (Trelegy Ellipta 100-62.5-25) 100-62.5 Blst.w.dev 1 PUFF IH DAILY for 30 Days, #1 EACH 0 Refills Furosemide (Lasix 20Mg Tab) 20 Mg Tablet 20 MG PO DAILY for 30 Days, #30 TAB Losartan Potassium (Losartan Potassium) 100 Mg Tablet 1 TAB PO DAILY for 30 Days, #30 TAB 0 Refills Metformin HCl (Metformin HCl) 1,000 Mg Tablet 1 TAB PO BID for 30 Days, #60 TAB 0 Refills Montelukast Sodium (Montelukast Sodium) 10 Mg Tablet 1 TAB PO DAILY for 30 Days, #30 TAB 0 Refills Multivitamin (Multivitamin) 1 Each Tablet 1 TAB PO DAILY for 30 Days, #30 TAB 0 Refills Potassium Chloride (Potassium Chloride) 10 Meq Capsule.er 1 CAP PO DAILY for 30 Days, #30 CAP 0 Refills Pravastatin Sodium (Pravastatin Sodium) 40 Mg Tablet 1 TAB PO HS for 30 Days, #30 TAB 0 Refills Trazodone HCl (Trazodone HCl) 100 Mg Tablet 1 TAB PO HS for 30 Days, #30 TAB 0 Refills Discontinued Medications: Amlodipine Besylate (Norvasc) 10 Mg Tablet 1 TAB PO DAILY for 30 Days, #30 TAB 0 Refills Amlodipine Besylate (Amlodipine Besylate) 10 Mg Tablet 1 TAB PO DAILY for 30 Days, #30 TAB 0 Refills Esomeprazole Magnesium (Esomeprazole Magnesium) 40 Mg Capsule.dr 1 CAP PO DAILY for acid reflux Famotidine (Pepcid) 20 Mg Tablet 1 TAB PO BID for 30 Days, #60 TAB 0 Refills Famotidine (Famotidine) 20 Mg Tablet 1 TAB PO BID for 30 Days, #60 TAB 0 Refills Fluconazole (Fluconazole) 200 Mg Tablet 200 MG PO DAILY for 13 Days, #13 TAB Fluticasone/Umeclidin/Vilanter (Trelegy Ellipta 100-62.5-25) 100-62.5 Blst.w.dev 1 PUFF IH DAILY for 30 Days, #1 EACH 0 Refills Hydralazine HCl (Apresoline) 25 Mg Tab 50 MG PO TID, #60 TAB Hydralazine HCl (Apresoline) 25 Mg Tab 75 MG PO TID, #120 TAB Hydralazine HCl (Hydralazine HCl) 25 Mg Tablet 1 TAB PO TID for 30 Days, #90 TAB 0 Refills Levofloxacin (Levofloxacin) 500 Mg Tablet 1 TAB PO DAILY for 10 Days, #10 TAB 0 Refills Losartan Potassium (Losartan Potassium) 100 Mg Tablet 100 MG PO DAILY, TAB Metformin HCl (Metformin HCl) 500 Mg Tablet 1000 MG PO BID, TAB Montelukast Sodium (Montelukast Sodium) 10 Mg Tablet 10 MG PO HS, TAB Pravastatin Sodium (Pravastatin Sodium) 20 Mg Tablet 40 MG PO HS, TAB PHYSICAL EXAM: GENERAL: Alert, Awaker and oriented x3 . She is in good spirits. HEENT: EOMI, Sclera non icteric, moist mucosa NECK: Supple, no JVD, trachea midline LUNGS: Clear breath sounds bilaterally. No wheezes HEART: Regular rate and rhythm. Normal S1 and S2, without murmurs ABD: Abdomen soft, nontender. Bowel sounds present EXT: No clubbing cyanosis or edema NEURO: Alert and oriented to person, follows commands FOLLOW-UP: Follow-up with PCP in 2-3 days. ( pt reports she has an appt with Dr Brewster on Wednesday.) RECOMMENDATIONS: See Discharge Instructions This case was seen and discussed with my supervising physician. More than 30 minutes spent on discharge process, including evaluation of the patient, discussion with nursing staff, medication reconciliation and follow-up appointments ATTESTATION BY PHYSICIAN I reviewed the documentation, medical decision making, and treatment plan as noted by the mid-level provider above. I agree with the findings and plan of care. Darin Frey MD, NELLY J ARNP May 20, 2024 11:25
[2024-05-20] MEDS: MAGNESIUM 2GM PREMIX 50ML 50 ML IV PRN (12:51)
--- NOTE | 2024-05-20 16:06 | NUR ---
DISCHARGE 1506-DISCHARGE INSTRUCTIONS GIVEN TO PATIENT. PATIENT VERBALIZED KNOWLEDGE AND UNDERSTANDING. PATIENT AWAITING ARRIVAL OF PRIVATE TRANSPORTATION HOME. 1606-PATIENT'S FAMILY ARRIVED AND PATIENT ESCORTED VIA WHEELCHAIR. PATIENT DISCHARGED NOW.
[2024-05-20] MEDS ORDERED: NON-FORMULARY MEDICATION 1 EACH (Pravastatin Sodium 1 TAB) PO SCH (21:00)
[2024-05-20] MEDS ORDERED: trAZOdone HCL 100 MG TABLET PO SCH (21:00)
== END 2024-05-20 16:06 | disposition home or self-care (01) ==
LOC: EDH 11:17 → INTOOBSV 17:10 → EDHIP 17:10 → 2DH 05-20 08:30
PROVIDERS: ADMIT Internal Medicine; ATTEND Internal Medicine
DX: E11.65 Type 2 diabetes mellitus with hyperglycemia (principal); Z20.822 Contact with and (suspected) exposure to COVID-19; I12.9 Hypertensive chronic kidney disease with stage 1 through stage 4 chronic kidney disease, or unspecified chronic kidney disease; E11.22 Type 2 diabetes mellitus with diabetic chronic kidney disease; N18.2 Chronic kidney disease, stage 2 (mild); N17.9 Acute kidney failure, unspecified; E87.70 Fluid overload, unspecified; E78.00 Pure hypercholesterolemia, unspecified; I25.10 Atherosclerotic heart disease of native coronary artery without angina pectoris; J45.909 Unspecified asthma, uncomplicated; Z79.82 Long term (current) use of aspirin; Z95.0 Presence of cardiac pacemaker
CPT/HCPCS: 96375; 82550; 83735 ×2; 84484; 80048 ×2; 83880; 85025; 85610; 85730; 87804 ×2; 82948 ×3; 81003; 36415 ×2; 87635; 71045; 99291; 96361; 96376; 93005; 96365; 96366; 84443; 84100; 85027; J7120; J0360 ×2; G0378 ×7; J3475; 96374

== ENCOUNTER 2024-05-29 12:57 | Emergency (ER) | payer OTHER, MEDICARE ==
[~2024-05-29] VITALS: Ht 147.3 cm; Wt 47.6 kg
[~2024-05-29 12:57] MED LIST changes: -AMLO-915 PO; +AMLO1CAP88 PO; +CLON0.1T2 PO; -FAMO-136 PO; -FLUC200T96 PO; -LEVO-70 PO; -METF-444 PO; +METF-446 PO; +MULT-1367 PO; +POTA10CA95 PO; -PRAV20TA4 PO; +PRAV40TA3 PO; +TRAZ-187 PO
--- NOTE | 2024-05-29 13:39 | EKG ---
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 : 1935 Requested By: RYNE MOSELEY Order Number: [id number] Reading MD: Patric Holman Measurements Intervals [place] Rate: 68 P: -64 MA: 151 QRS: -28 QRSD: 92 T: 129 QT: 408 QTc: 433 Interpretive Statements Atrial-paced complexes Left ventricular hypertrophy Nonspecific T abnormalities, lateral leads Compared to ECG 05/19/2024 11:57:29 Left ventricular hypertrophy now present T-wave abnormality now present Possible ischemia no longer present Prolonged QT interval no longer present Electronically Signed On 05-30-2024 11:19:01 CDT by Patric Holman Please click the below link to view image of tracing.
[2024-05-29 13:47] LABS: BASOPHILS # (AUTO) 0.01 K/uL (0.00-0.20); BASOPHILS % (AUTO) 0.1 % (0.0-5.0); EOSINOPHILS % (AUTO) 1.2 % (0.0-8.0); HEMATOCRIT 37.6 % (36-48); IMMATURE GRANULOCYTE ABSOLUTE 0.02 K/uL (0-1); LYMPHOCYTES # (AUTO) 1.5 K/uL (1.0-4.8); LYMPHOCYTES % (AUTO) 17.2 % (21.0-51.0); MEAN CORPUSCULAR HEMOGLOBIN 32.2 pg (27.0-33.0); MEAN CORPUSCULAR VOLUME 94.5 fL (79-99); MONOCYTES # (AUTO) 0.9 K/uL (0.1-1.0); MONOCYTES % (AUTO) 10.1 % (3.0-13.0); NEUTROPHILS % (AUTO) 71.2 % (40.0-77.0); PLATELET COUNT (AUTO) 185 K/uL (130-400); RED BLOOD CELL COUNT(AUTO) 3.98 MIL/uL (4.00-5.50); RED CELL DISTRIBUTION WIDTH 12.9 % (11.0-15.5); WHITE BLOOD COUNT (AUTO) 8.4 K/uL (4.8-10.8)
[2024-05-29 13:55] LABS: POTASSIUM 4.7 mmol/L (3.5-5.1)
[2024-05-29 13:58] LABS: INR 0.98 (0.85-1.15); PROTHROMBIN TIME 10.4 SEC (9.6-11.6)
[2024-05-29 13:59] LABS: PARTIAL THROMBOPLASTIN TIME 28.2 SEC (26.3-35.5)
[2024-05-29 14:00] LABS: MAGNESIUM 1.4 mg/dL (1.80-2.40)
[2024-05-29 14:08] LABS: B-TYPE NATRIURETIC PEPTIDE 77 pg/mL (0-100)
--- NOTE | 2024-05-29 14:32 | HMCIMG ---
Exam Type: CHEST 1VW Clinical Information: cp Comparison: None Findings: The lungs are clear of infiltrates. The heart is enlarged in size. The bony and soft tissue structures of the chest are unremarkable. Right cardiac pacemaker is noted with leads in place. Impression: Clear lungs.
[2024-05-29] MEDS: ondanSETRON 4MG INJ IVP ONE (14:47)
--- NOTE | 2024-05-29 15:36 | ERN ---
General Chief Complaint: Dizzy/Light Headed Stated Complaint: DIZZINESS Time Seen by MD: 12:59 Source: patient, EMS History of Present Illness Initial Comments Is a an 89-year-old female coming in to be evaluated for multiple complaints. Patient states that he has had nauseousness and vomiting chronically for some time. She states that the these symptoms began after her gallbladder was removed. Long with this patient states that when she gets nauseousness she does feel weak. No fever or chills. Allergies: Coded Allergies: No Known Drug Allergies (Verified Allergy, Unknown, 04/18/19) Home Meds Active Scripts Hydralazine HCl (Apresoline) 25 Mg Tab, 25 MG PO TID, #90 TAB 1 Refill Prov:SHELLEY VITALP 05/20/24 Clonidine HCl (Catapress) 0.1 Mg Tab, 0.2 MG PO Q6H PRN for IF SBP GREATER THAN 180, #60 TAB 0 Refills Prov:SHELLEY VITALP 05/20/24 Amlodipine Besylate/Benazepril (Lotrel 5-10 mg) 5 Mg-10 Mg Capsule, 1 EACH PO DAILY22, #30 CAP 1 Refill Prov:SHELLEY VITALP 05/20/24 Aspirin (ASPIRIN 81 MG ECTAB) 81 Mg Ectab, 81 MG PO DAILY, #60 TAB.EC Prov:CANDI JACOME CHEESE TESTER 05/05/24 Furosemide (Lasix 20Mg Tab) 20 Mg Tablet, 20 MG PO DAILY for 30 Days, #30 TAB Prov:FILI ALTAMIRANO SHAFT HEADMAN 05/06/22 Reported Medications Fluticasone/Umeclidin/Vilanter (Trelegy Ellipta 100-62.5-25) 100-62.5 Blst.w.dev, 1 PUFF IH DAILY for 30 Days, #1 EACH 0 Refills 05/19/24 Montelukast Sodium (Montelukast Sodium) 10 Mg Tablet, 1 TAB PO DAILY for 30 Days, #30 TAB 0 Refills 05/19/24 Pravastatin Sodium (Pravastatin Sodium) 40 Mg Tablet, 1 TAB PO HS for 30 Days, #30 TAB 0 Refills 05/19/24 Trazodone HCl (Trazodone HCl) 100 Mg Tablet, 1 TAB PO HS for 30 Days, #30 TAB 0 Refills 05/19/24 Potassium Chloride (Potassium Chloride) 10 Meq Capsule.er, 1 CAP PO DAILY for 30 Days, #30 CAP 0 Refills 05/19/24 Metformin HCl (Metformin HCl) 1,000 Mg Tablet, 1 TAB PO BID for 30 Days, #60 TAB 0 Refills 05/19/24 Losartan Potassium (Losartan Potassium) 100 Mg Tablet, 1 TAB PO DAILY for 30 Days, #30 TAB 0 Refills 05/19/24 Multivitamin (Multivitamin) 1 Each Tablet, 1 TAB PO DAILY for 30 Days, #30 TAB 0 Refills 05/19/24 Esomeprazole Magnesium (Esomeprazole Magnesium) 40 Mg Capsule.dr, 1 CAP PO DAILY for 30 Days, #30 CAP 0 Refills 05/19/24 Cholecalciferol (Vitamin D3) (Vitamin D3) 125 Mcg Tablet, 125 MCG PO DAILY, TAB 05/02/22 Calcium Carbonate/Mag Carb (Magnebind 400 Tablet) 1 Each Tablet, 1 EACH PO DAILY, TAB 05/02/22 Albuterol Sulfate (Proair Hfa) 8.5 Gm Hfa.aer.ad, 8.5 GM IH TID for SOB 12/23/18 Past Medical History Past Medical History: Diabetes-Type II, High Cholesterol, Heart Disease, Hypertension Past Surgical History: Pacer/AICD Family History Family History: Negative Social History Social History: Negative, Lives with family Female( History) History: Not Applicable ROS Dictation CONSTITUTIONAL: No chills, no fever, no weakness, no diaphoresis, no malaise. HEAD/FACE: No signs of trauma. EENT: No eye pain, no blurred vision, no tearing, no double vision, no ear pain, no ear discharge, no nose pain, no nasal congestion, no throat pain, no throat swelling, no mouth pain. RESPIRATORY: No cough, no orthopnea, no SOB, no stridor, no wheezing. CARDIOVASCULAR: No chest pain, no edema, no palpitations, no syncope. GASTROINTESTINAL/ABDOMINAL: No abdominal pain, no constipation, no diarrhea, no nausea, no vomiting. GENITOURINARY: No abnormal discharge, no dysuria, no frequent urination, no hematuria. No complaints of pain in the genitals. MUSCULOSKELETAL: No back pain, no gout, no joint pain, no joint swelling, no muscle pain, no muscle stiffness, no neck pain. INTEGUMENTARY: No change in color, no change in hair/nails, no dryness, no lesion, no lumps, no rash. NEUROLOGICAL/PSYCH: No anxiety, not depressed, no emotional problem, no headache, no numbness, no pre-existing deficit, no history of seizures, no tremors, no weakness. HEMATOLOGIC/LYMPHATIC: Not anemic, no history of blood clots, no apparent bleeding, no bruising, glands not swollen. All Systems Negative, Except as Noted. Physical Exam Physical Exam Dictation VITAL SIGNS: Reviewed. GENERAL APPEARANCE: Alert, oriented x3, no acute distress, obese. HEAD AND FACE: Non-traumatic. EYES: PERRL, pink conjunctivas, eyelid no trauma, anterior chamber clear. EARS: Pinnas intact and no signs of trauma or erythema. Ear canals clear and no discharge. TMs no erythema. NOSE: No discharge, no bleeding. OROPHARYNX: Mouth normal, teeth no caries, tongue pink. Pharynx clear, no erythema. Tonsils no exudates, no abscesses noted. Mucous membrane moist. NECK: Supple, non-tender, no thyromegaly, no masses, no JVD, no bruits. BREAST: Deferred. CHEST: No tenderness, no crepitus, no paradoxical movement, no retractions. LUNGS: Clear, well-ventilated, symmetric, no rales, no wheezing, no rhonchi, no stridor, good breath sounds bilaterally. HEART: Regular rate, regular rhythm, no murmur, no gallops. VASCULAR: No peripheral edema. ABDOMEN: Soft, positive bowel sounds, nondistended, no guarding, nontender, no rebound, no masses no hepatomegaly, no splenomegaly, no Comer's sign, no hernias. RECTAL: Deferred. GENITAL: Deferred. NEUROLOGICAL: Normal speech, gross motor function intact, gross sensory function intact. MUSCULOSKELETAL: Neck nontender, full range of motion, back nontender, full range of motion. EXTREMITIES: Nontender, full range of motion. SKIN: Color pink, dry, no turgor, no rash, no lacerations, no abrasions, no contusions. LYMPHATICS: Deferred. Results Laboratory and Microbiology Lab and Micro Result Laboratory Tests Test 05/29/24 13:37 White Blood Count 8.4 K/uL (4.8-10.8) Red Blood Count 3.98 MIL/uL (4.00-5.50) L Hemoglobin 12.8 g/dL (12.0-16.0) Hematocrit 37.6 % (36-48) Mean Corpuscular Volume 94.5 fL (79-99) Mean Corpuscular Hemoglobin 32.2 pg (27.0-33.0) Mean Corpuscular Hemoglobin Concent 34.0 g/dL (32.0-36.0) Red Cell Distribution Width 12.9 % (11.0-15.5) Platelet Count 185 K/uL (130-400) Mean Platelet Volume 10.5 fL (7.5-10.5) Immature Granulocyte % (Auto) 0.2 % (0-1) Neutrophils (%) (Auto) 71.2 % (40.0-77.0) Lymphocytes (%) (Auto) 17.2 % (21.0-51.0) L Monocytes (%) (Auto) 10.1 % (3.0-13.0) Eosinophils (%) (Auto) 1.2 % (0.0-8.0) Basophils (%) (Auto) 0.1 % (0.0-5.0) Neutrophils # (Auto) 6.0 K/uL (1.8-7.7) Lymphocytes # (Auto) 1.5 K/uL (1.0-4.8) Monocytes # (Auto) 0.9 K/uL (0.1-1.0) Eosinophils # (Auto) 0.10 K/uL (0.00-0.70) Basophils # (Auto) 0.01 K/uL (0.00-0.20) Absolute Immature Granulocyte (auto 0.02 K/uL (0-1) Nucleated Red Blood Cells 0.0 % (0.0-0.19) Prothrombin Time 10.4 SEC (9.6-11.6) Prothromb Time International Ratio 0.98 (0.85-1.15) Activated Partial Thromboplast Time 28.2 SEC (26.3-35.5) Sodium Level 130 mmol/L (136-145) L Potassium Level 4.7 mmol/L (3.5-5.1) Chloride Level 97 mmol/L (101-111) L Carbon Dioxide Level 25 mmol/L (21-32) Blood Urea Nitrogen 17 mg/dL (7-18) Creatinine 1.0 mg/dL (0.5-1.0) Glomerular Filtration Rate Calc 54 mL/min (>90) Random Glucose 104 mg/dL (70-105) Total Calcium 9.2 mg/dL (8.5-10.1) Magnesium Level 1.40 mg/dL (1.80-2.40) L Total Creatine Kinase 32 U/L (21-232) # Troponin I High Sensitivity 12 ng/L (4-50) B-Type Natriuretic Peptide 77 pg/mL (0-100) Labs Reviewed?: Yes EKG/XRAY/US/CT/MRI EKG Comment 05/29/2024 time 1322 Ventricular rate 68 Atrial paced [place] [address] wave elevation or depression MDM MDM: Differential diagnosis: Chronic gastritis, gastritis, gastroenteritis, Rationale: Tests considered and ordered secondary to shared decision making include: Previous outside records reviewed: Old ER visits. Risk of complication and/or morbidity or mortality of patient management: None Patient is a 89-year-old female with a chronic history of nauseousness and vomiting after for gallbladder was removed. Patient states that these symptoms began earlier today again in she wanted to be seen for further evaluation. Laboratory workup negative for acute findings. Patient will be discharged in stable condition I did advise her we will be referring her to piano accompanist for long-term management of chronic gastritis/gastroenteritis. ED Course Orders Procedure Category Date Status Time Cbc With Differential LAB 05/29/24 Complete 13:00 Prothrombin Time With LAB 05/29/24 Complete INR 13:00 B-Type Natriuretic LAB 05/29/24 Complete Peptide 13:00 Chest 1vw RAD 05/29/24 Resulted 13:00 12 Lead Ekg Tracing- EKG 05/29/24 Complete Technical 13:00 Magnesium LAB 05/29/24 Complete 13:00 Creatine Kinase, Total LAB 05/29/24 Complete 13:00 Troponin I High LAB 05/29/24 Complete Sensitivity 13:00 Urinalysis Profile LAB 05/29/24 In Process 13:00 Partial LAB 05/29/24 Complete Thromboplastin Time 13:00 Basic Metabolic Panel LAB 05/29/24 Complete 13:00 Ondansetron 4mg Inj PHA 05/29/24 Complete (Zofran 4mg Inj) 13:00 Current Medications Medications (Trade) Dose Ordered Sig/Theo Route PRN Reason Start Time Stop Time Status Last Admin Dose Admin Ondansetron HCl (zoFRAN 4MG INJ) 4 mg ONCE ONCE IVP 05/29/24 13:00 05/29/24 13:04 DC 05/29/24 14:47 Vital Signs Date Time Temp Pulse Resp B/P (MAP) Pulse Ox O2 Delivery O2 Flow Rate FiO2 05/29/24 15:00 98.1 63 18 133/75 96 Room Air* 0 21 05/29/24 13:29 98.1 60 23 127/50 95 Room Air* 0 21 05/29/24 12:59 98.2 61 17 165/137 97 Room Air 0 DX & DISP Disposition: Discharge Departure Impression: Primary Impression: Chronic gastritis Additional Impression: Gastroenteritis Condition: Stable Additional Instructions: FOLLOW-UP WITH PRIMARY CARE PROVIDER IN 1 TO 2 DAYS. TAKE MEDICATIONS DIRECTED HERE IN THE EMERGENCY ROOM. OKAY TO CONTINUE HOME MEDICATIONS UNLESS OTHERWISE DISCUSSED DURING YOUR VISIT IN THE EMERGENCY ROOM TODAY. RETURN TO YOUR NEAREST EMERGENCY ROOM IF SYMPTOMS WORSEN OR IF THERE IS NO IMPROVEMENT. CALL 911 IF YOU NEED IMMEDIATE ASSISTANCE. TAKE TYLENOL [id number] NEEDED AND IF NO CONTRAINDICATIONS ARE PRESENT. INCREASE ORAL HYDRATION. A WOU ND CULTURE OR URINE CULTURE WAS ORDERED HERE IN THE EMERGENCY ROOM DEPARTMENT PLEASE FOLLOW-UP WITH PRIMARY CARE PROVIDER AND ADVISE THEM TO GET REPEAT PORTS FROM OUR FACILITY. IF YOU HAD ANY DAVON WRAP/SPLINTS THAT WERE APPLIED HERE, PLEASE DO NOT REMOVE THEM UNTIL YOU SEE YOUR PRIMARY CARE OR SPECIALTY. Referrals: Referrals: ROJELIO RANDOLPH DO (PCP) VANDANA TRUJILLO MD Time of Disposition: 15:36 RYNE MOSELEY MD May 29, 2024 15:36
[2024-05-29 15:45] LABS: APPEARANCE,URINE CLEAR (CLEAR); BILIRUBIN,URINE NEGATIVE (NEGATIVE); COLOR,URINE LIGHT-YELLOW (YELLOW); GLUCOSE, URINE (UA) NEGATIVE (NEGATIVE); KETONES,URINE NEGATIVE (NEGATIVE); LEUKOCYTE ESTERASE ,URINE NEGATIVE Leu/uL (NEGATIVE); NITRATE,URINE NEGATIVE (NEGATIVE); OCCULT BLOOD,URINE NEGATIVE (NEGATIVE); PH,URINE 6.5 (5.0-8.0); PROTEIN,URINE NEGATIVE (NEGATIVE); UROBILINOGEN,URINE 0.2 mg/dL (0.2-1.0)
[2024-05-29 15:48] LABS: ADD UA MICROSCOPIC YES
[2024-05-29 15:49] LABS: NON-SQUAMOUS EPITHELIAL CELL <1 /HPF (0-2); RBC,URINE 0-1 /HPF (0-1); SQUAMOUS EPITHELIAL CELL,UR RARE /HPF (0-2)
[2024-05-29 17:01] VITALS: BP 128/55; PULSE 68; RESP 18; TEMP 97.7; O2SAT 98
== END 2024-05-29 16:47 | disposition home or self-care (01) ==
LOC: EDH 12:57
DX: K29.50 Unspecified chronic gastritis without bleeding (principal); K52.9 Noninfective gastroenteritis and colitis, unspecified; E11.9 Type 2 diabetes mellitus without complications; E78.00 Pure hypercholesterolemia, unspecified; Z79.82 Long term (current) use of aspirin; Z79.84 Long term (current) use of oral hypoglycemic drugs; Z79.899 Other long term (current) drug therapy; Z95.810 Presence of automatic (implantable) cardiac defibrillator
CPT/HCPCS: 99285; 96374; 71045; 82550; 83735; 84484; 80048; 83880; 85025; 85610; 85730; 81001; 36415; 93005; J2405

== ENCOUNTER 2024-09-26 12:29 | Emergency (ER) | payer OTHER, MEDICAID ==
[~2024-09-26] VITALS: Ht 142.2 cm; Wt 47.6 kg
[~2024-09-26 12:29] MED LIST changes: +AZIT250T9 PO; +BENZ-39 PO; -PRAV40TA3 PO; +PRAV40TA62 PO
[2024-09-26 12:30] VITALS: TEMP 98.1
--- NOTE | 2024-09-26 12:54 | EKG ---
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 : 1935 Requested By: RYNE MOSELEY Order Number: [id number] Reading MD: Moshe Lucero Measurements Intervals [place] Rate: 73 P: -78 CT: 120 QRS: -29 QRSD: 94 T: -90 QT: 409 QTc: 422 Interpretive Statements Ectopic atrial rhythm Atrial premature complexes Abnormal T, consider ischemia, diffuse leads Compared to ECG 09/03/2024 10:35:50 Ectopic atrial rhythm now present Atrial premature complex(es) now present T-wave abnormality now present Possible ischemia now present Ventricular-paced complex(es) or rhythm no longer present Myocardial infarct finding no longer present Electronically Signed On 09-26-2024 15:39:38 CDT by Moshe Lucero Please click the below link to view image of tracing.
--- NOTE | 2024-09-26 12:58 | HMCIMG ---
EXAM: CR Chest, 1 View. CLINICAL HISTORY: CP COMPARISON: Radiograph dated September 03, 2024 FINDINGS: LUNGS: There is no mass, infiltrate, or acute pulmonary abnormality. PLEURAL SPACES: No evidence of pleural effusion or pneumothorax. MEDIASTINUM: Pacemaker leads overlie the right atrium and both ventricles. Cardiac size and mediastinal contours within normal limits. BONES: No aggressive appearing osseous lesion seen. IMPRESSION: No acute cardiopulmonary pathology is evident. /Lucas
[2024-09-26 13:10] LABS: IMMATURE GRANULOCYTE ABSOLUTE 0.04 K/uL (0-1); NUCLEATED RED BLOOD CELLS 0.0 % (0.0-0.19); PLATELET COUNT (AUTO) 206 K/uL (130-400); RED BLOOD CELL COUNT(AUTO) 4.22 MIL/uL (4.00-5.50); RED CELL DISTRIBUTION WIDTH 13.8 % (11.0-15.5); WHITE BLOOD COUNT (AUTO) 11.3 K/uL (4.8-10.8)
[2024-09-26 13:13] VITALS: PULSE 56
[2024-09-26 13:17] LABS: CREATININE 0.7 mg/dL (0.5-1.0); GLOMERULAR FILTR. RATE CALC 83.0 mL/min (>90); GLUCOSE,RANDOM 140.0 mg/dL (70-105); SODIUM SERUM 139.0 mmol/L (136-145); UREA NITROGEN, BLOOD 14.0 mg/dL (7-18)
[2024-09-26 14:39] LABS: ADD UA MICROSCOPIC NO; APPEARANCE,URINE CLEAR (CLEAR); GLUCOSE, URINE (UA) NEGATIVE (NEGATIVE); LEUKOCYTE ESTERASE ,URINE NEGATIVE Leu/uL (NEGATIVE); NITRATE,URINE NEGATIVE (NEGATIVE); OCCULT BLOOD,URINE NEGATIVE (NEGATIVE)
--- NOTE | 2024-09-26 15:02 | ERN ---
General Chief Complaint: Palpitations Stated Complaint: PALPITATIONS, UNCONTROLLED BP Time Seen by MD: 12:30 Source: patient History of Present Illness Initial Comments PATIENT IS A AN 89-YEAR-OLD FEMALE COMING IN TO BE EVALUATED FOR ELEVATED BLOOD PRESSURE. PER PATIENT SHE HAS BEEN SEEN BY HER PCP AND SENT OVER DUE TO ELEVATED BLOOD PRESSURE. PATIENT STATES HE FEELS FINE AND WAS ONLY CONCERNED BECAUSE PCP SENT HER PCP SENT HER IN. Allergies: Coded Allergies: No Known Drug Allergies (Verified Allergy, Unknown, 04/18/19) Home Meds Active Scripts Benzonatate (Tessalon Perles) 100 Mg Cap, 100 MG PO TID for cough, #30 CAP 0 Refills Prov:JOSE C DENG 09/03/24 Azithromycin (Azithromycin) 250 Mg Tablet, 1 TAB PO AD for 5 Days, #6 TAB 0 Refills 2 the first day followed by 1 for days 2-5 Prov:JOSE C DENG 09/03/24 Hydralazine HCl (Apresoline) 25 Mg Tab, 25 MG PO TID, #90 TAB 1 Refill Prov:SHELLEY VITAL 05/20/24 Clonidine HCl (Catapress) 0.1 Mg Tab, 0.2 MG PO Q6H PRN for IF SBP GREATER THAN 180, #60 TAB 0 Refills Prov:SHELLEY VITALP 05/20/24 Amlodipine Besylate/Benazepril (Lotrel 5-10 mg) 5 Mg-10 Mg Capsule, 1 EACH PO DAILY22, #30 CAP 1 Refill Prov:SHELLEY VITALP 05/20/24 Aspirin (ASPIRIN 81 MG ECTAB) 81 Mg Ectab, 81 MG PO DAILY, #60 TAB.EC Prov:CANDI JACOME MAKE UP MAN 05/05/24 Furosemide (Lasix 20Mg Tab) 20 Mg Tablet, 20 MG PO DAILY for 30 Days, #30 TAB Prov:FILI ALTAMIRANO SHEAR OPERATOR HELPER 05/06/22 Reported Medications Fluticasone/Umeclidin/Vilanter (Trelegy Ellipta 100-62.5-25) 100-62.5 Blst.w.dev, 1 PUFF IH DAILY for 30 Days, #1 EACH 0 Refills 05/19/24 Montelukast Sodium (Montelukast Sodium) 10 Mg Tablet, 1 TAB PO DAILY for 30 Days, #30 TAB 0 Refills 05/19/24 Pravastatin Sodium (Pravastatin Sodium) 40 Mg Tablet, 1 TAB PO HS for 30 Days, #30 TAB 0 Refills 05/19/24 Trazodone HCl (Trazodone HCl) 100 Mg Tablet, 1 TAB PO HS for 30 Days, #30 TAB 0 Refills 05/19/24 Potassium Chloride (Potassium Chloride) 10 Meq Capsule.er, 1 CAP PO DAILY for 30 Days, #30 CAP 0 Refills 05/19/24 Metformin HCl (Metformin HCl) 1,000 Mg Tablet, 1 TAB PO BID for 30 Days, #60 TAB 0 Refills 05/19/24 Losartan Potassium (Losartan Potassium) 100 Mg Tablet, 1 TAB PO DAILY for 30 Days, #30 TAB 0 Refills 05/19/24 Multivitamin (Multivitamin) 1 Each Tablet, 1 TAB PO DAILY for 30 Days, #30 TAB 0 Refills 05/19/24 Esomeprazole Magnesium (Esomeprazole Magnesium) 40 Mg Capsule.dr, 1 CAP PO DAILY for 30 Days, #30 CAP 0 Refills 05/19/24 Cholecalciferol (Vitamin D3) (Vitamin D3) 125 Mcg Tablet, 125 MCG PO DAILY, TAB 05/02/22 Calcium Carbonate/Mag Carb (Magnebind 400 Tablet) 1 Each Tablet, 1 EACH PO DAILY, TAB 05/02/22 Albuterol Sulfate (Proair Hfa) 8.5 Gm Hfa.aer.ad, 8.5 GM IH TID for SOB 12/23/18 Past Medical History Past Medical History: Asthma, Diabetes-Type II, High Cholesterol, Heart Disease, Hypertension Past Surgical History: Pacer/AICD Family History Family History: Negative Social History Social History: Negative, Lives with family Female( History) History: Not Applicable ROS Dictation CONSTITUTIONAL: NO CHILLS, NO FEVER, NO WEAKNESS, NO DIAPHORESIS, NO MALAISE. HEAD/FACE: NO SIGNS OF TRAUMA. EENT: NO EYE PAIN, NO BLURRED VISION, NO TEARING, NO DOUBLE VISION, NO EAR PA IN, NO EAR DISCHARGE, NO NOSE PAIN, NO NASAL CONGESTION, NO THROAT PAIN, NO THROAT SWELLING, NO MOUTH PAIN. RESPIRATORY: NO COUGH, NO ORTHOPNEA, NO SOB, NO STRIDOR, NO WHEEZING. CARDIOVASCULAR: NO CHEST PAIN, NO EDEMA, NO PALPITATIONS, NO SYNCOPE. GASTROINTESTINAL/ABDOMINAL: NO ABDOMINAL PAIN, NO CONSTIPATION, NO DIARRHEA, NO NAUSEA, NO VOMITING. GENITOURINARY: NO ABNORMAL DISCHARGE, NO DYSURIA, NO FREQUENT URINATION, NO HEMATURIA. NO COMPLAINTS OF PAIN IN THE GENITALS. MUSCULOSKELETAL: NO BACK PAIN, NO GOUT, NO JOINT PAIN, NO JOINT SWELLING, NO MUSCLE PAIN, NO MUSCLE STIFFNESS, NO NECK PAIN. INTEGUMENTARY: NO CHANGE IN COLOR, NO CHANGE IN HAIR/NAILS, NO DRYNESS, NO LESION, NO LUMPS, NO RASH. NEUROLOGICAL/PSYCH: NO ANXIETY, NOT DEPRESSED, NO EMOTIONAL PROBLEM, NO HEADACHE, NO NUMBNESS, NO PRE-EXISTING DEFICIT, NO HISTORY OF SEIZURES, NO TREMORS, NO WEAKNESS. HEMATOLOGIC/LYMPHATIC: NOT ANEMIC, NO HISTORY OF BLOOD CLOTS, NO APPARENT BLEEDING, NO BRUISING, GLANDS NOT SWOLLEN. ALL SYSTEMS NEGATIVE, EXCEPT NOTED. Physical Exam Physical Exam Dictation VITAL SIGNS: REVIEWED. GENERAL APPEARANCE: ALERT, ORIENTED X3, NO ACUTE DISTRESS, OBESE. HEAD AND FACE: NON-TRAUMATIC. EYES: PERRL, PINK CONJUNCTIVAS, EYELID NO TRAUMA, ANTERIOR CHAMBER CLEAR. EARS: PINNAS INTACT AND NO SIGNS OF TRAUMA OR ERYTHEMA. EAR CANALS CLEAR AND NO DISCHARGE. TMS NO ERYTHEMA. NOSE: NO DISCHARGE, NO BLEEDING. OROPHARYNX: MOUTH NORMAL, TEETH NO CARIES, TONGUE PINK. PHARYNX CLEAR, NO ERYTHEMA. TONSILS NO EXUDATES, NO ABSCESSES NOTED. MUCOUS MEMBRANE MOIST. NECK: SUPPLE, NON-TENDER, NO THYROMEGALY, NO MASSES, NO JVD, NO BRUITS. BREAST: DEFERRED. CHEST: NO TENDERNESS, NO CREPITUS, NO PARADOXICAL MOVEMENT, NO RETRACTIONS. LUNGS: CLEAR, WELL-VENTILATED, SYMMETRIC, NO RALES, NO WHEEZING, NO RHONCHI, NO STRIDOR, GOOD BREATH SOUNDS BILATERALLY. HEART: REGULAR RATE, REGULAR RHYTHM, NO MURMUR, NO GALLOPS. VASCULAR: NO PERIPHERAL EDEMA. ABDOMEN: SOFT, POSITIVE BOWEL SOUNDS, NONDISTENDED, NO GUARDING, NONTENDER, NO REBOUND, NO MASSES NO HEPATOMEGALY, NO SPLENOMEGALY, NO WAKEFIELD'S SIGN, NO HERNIAS. RECTAL: DEFERRED. GENITAL: DEFERRED. NEUROLOGICAL: NORMAL SPEECH, GROSS MOTOR FUNCTION INTACT, GROSS SENSORY FUNCTION INTACT. MUSCULOSKELETAL: NECK NONTENDER, FULL RANGE OF MOTION, BACK NONTENDER, FULL RANGE OF MOTION. EXTREMITIES: NONTENDER, FULL RANGE OF MOTION. SKIN: COLOR PINK, DRY, NO TURGOR, NO RASH, NO LACERATIONS, NO ABRASIONS, NO CONTUSIONS. LYMPHATICS: DEFERRED. Results Laboratory and Microbiology Lab and Micro Result Laboratory Tests Test 09/26/24 13:00 09/26/24 14:14 White Blood Count 11.3 K/uL (4.8-10.8) H Red Blood Count 4.22 MIL/uL (4.00-5.50) Hemoglobin 13.9 g/dL (12.0-16.0) Hematocrit 40.7 % (36-48) Mean Corpuscular Volume 96.4 fL (79-99) Mean Corpuscular Hemoglobin 32.9 pg (27.0-33.0) Mean Corpuscular Hemoglobin Concent 34.2 g/dL (32.0-36.0) Red Cell Distribution Width 13.8 % (11.0-15.5) Platelet Count 206 K/uL (130-400) Mean Platelet Volume 10.1 fL (7.5-10.5) Immature Granulocyte % (Auto) 0.4 % (0-1) Neutrophils (%) (Auto) 78.7 % (40.0-77.0) H Lymphocytes (%) (Auto) 13.1 % (21.0-51.0) L Monocytes (%) (Auto) 7.0 % (3.0-13.0) Eosinophils (%) (Auto) 0.6 % (0.0-8.0) Basophils (%) (Auto) 0.2 % (0.0-5.0) Neutrophils # (Auto) 8.9 K/uL (1.8-7.7) H Lymphocytes # (Auto) 1.5 K/uL (1.0-4.8) Monocytes # (Auto) 0.8 K/uL (0.1-1.0) Eosinophils # (Auto) 0.07 K/uL (0.00-0.70) Basophils # (Auto) 0.02 K/uL (0.00-0.20) Absolute Immature Granulocyte (auto 0.04 K/uL (0-1) Nucleated Red Blood Cells 0.0 % (0.0-0.19) Sodium Level 139 mmol/L (136-145) Potassium Level 3.9 mmol/L (3.5-5.1) Chloride Level 102 mmol/L (101-111) Carbon Dioxide Level 27 mmol/L (21-32) Blood Urea Nitrogen 14 mg/dL (7-18) Creatinine 0.7 mg/dL (0.5-1.0) Glomerular Filtration Rate Calc 83 mL/min (>90) Random Glucose 140 mg/dL (70-105) H Total Calcium 9.1 mg/dL (8.5-10.1) Magnesium Level 1.40 mg/dL (1.80-2.40) L Troponin I High Sensitivity 15 ng/L (4-50) Urine Color LIGHT-YELLOW (YELLOW) Urine Appearance CLEAR (CLEAR) Urine pH 6.0 (5.0-8.0) Urine Specific [place] 1.011 (1.001-1.031) Urine Protein NEGATIVE mg/dL (NEGATIVE) Urine Glucose (UA) NEGATIVE mg/dL (NEGATIVE) Urine Ketones NEGATIVE mg/dL (NEGATIVE) Urine Occult Blood NEGATIVE (NEGATIVE) Urine Nitrate NEGATIVE (NEGATIVE) Urine Bilirubin NEGATIVE mg/dL (NEGATIVE) Urine Urobilinogen 0.2 mg/dL (0.2-1.0) Urine Leukocyte Esterase NEGATIVE Je/uL Labs Reviewed?: Yes EKG/XRAY/US/CT/MRI EKG Comment 09/26/2024 TIME 12:37 P.M. VENTRICULAR RATE [address] WAVE ELEVATION OR DEPRESSION X-RAY Comment IMAGING REPORT Signed PATIENT: TRAE MONZON MR#: [id number] : 1935 SEX: F AGE: 89 LOCATION: ED ORDER 34 STATUS: REG ER REPORT#: [id number] SERVICE [id number] REASON: CP ORDERING PHYSICIAN: RYNE MOSELEY MD PROCEDURE: CXR1VW - CHEST 1VW EXAM: CR Chest, 1 View. CLINICAL HISTORY: CP COMPARISON: Radiograph dated September 03, 2024 FINDINGS: LUNGS: There is no mass, infiltrate, or acute pulmonary abnormality. PLEURAL SPACES: No evidence of pleural effusion or pneumothorax. MEDIASTINUM: Pacemaker leads overlie the right atrium and both ventricles. Cardiac size and mediastinal contours within normal limits. BONES: No aggressive appearing osseous lesion seen. IMPRESSION: No acute cardiopulmonary pathology is evident. /[place] DICTATED BY: NIVIA VALDEZ Jr., MD DATE: 09/26/241356 ELECTRONICALLY SIGNED BY: NIVIA VALDEZ Jr., MD DATE: 09/26/241356 [facility] MDM: DIFFERENTIAL DIAGNOSIS: WHITE COAT SYNDROME, RATIONALE: TESTS CONSIDERED AND ORDERED SECONDARY TO SHARED DECISION MAKING INCLUDE: PREVIOUS OUTSIDE RECORDS REVIEWED: OLD ER VISITS. RISK OF COMPLICATION AND/OR MORBIDITY OR MORTALITY OF PATIENT MANAGEMENT: NONE MEDICATIONS-PER MEDICATION RECONCILIATION NEED FOR HOSPITALIZATION: PATIENT DOES NOT MEET CRITERIA FOR HOSPITALIZATION. NEED FOR EMERGENCY MAJOR/MINOR SURGERY: NO PATIENT IS A AN 89-YEAR-OLD FEMALE COMING IN TO BE EVALUATED FOR ELEVATED BLOOD PRESSURE. THROUGHOUT ER VISIT PATIENT IS A STABLE DUE TO ELEVATED BLOOD PRESSURE CONCERNS CARDIAC WORKUP WAS PERFORMED WAS WITHIN NORMAL LIMITS. PATIENT WILL BE DISCHARGED IN STABLE CONDITION WITH A DIAGNOSIS OF WHITE COAT SYNDROME. ED Course Orders Procedure Category Date Status Time 12 Lead Ekg Tracing- EKG 09/26/24 Complete Technical 12:34 Cbc With Differential LAB 09/26/24 Complete 12:34 Chest 1vw RAD 09/26/24 Resulted 12:34 Magnesium LAB 09/26/24 Complete 12:34 Troponin I High LAB 09/26/24 Complete Sensitivity 12:34 Urinalysis Profile LAB 09/26/24 Complete 12:34 Basic Metabolic Panel LAB 09/26/24 Complete 12:34 Vital Signs Date Time Temp Pulse Resp B/P (MAP) Pulse Ox O2 Delivery O2 Flow Rate FiO2 09/26/24 13:13 56 20 140/55 96 Room Air* 0 21 09/26/24 12:30 98.1 64 159/53 97 Room Air 0 DX & DISP Disposition: Discharge Departure Impression: Primary Impression: White coat syndrome with diagnosis of hypertension Condition: Stable Additional Instructions: YOU HAVE BEEN REVIEWED IN THE EMERGENCY DEPARTMENT AT [facility] AFTER PRESENTING WITH CHEST PAIN. AFTER CONSIDERING YOUR HISTORY, YOUR RISK FACTORS, YOUR EKG AND YOUR BLOOD TEST TROPONINS, HAVE BEEN FOUND TO BE AT VERY LOW RISK LESS THAN (1 IN 100) OF HAVING A MAJOR ADVERSE CARDIAC EVENT (LIKE HEART ATTACK) IN THE NEAR FUTURE. IN THE " LOW RISK" GROUP, THE RISKS OF DOING FURTHER TESTS AND TREATMENT THE INPATIENT OUTWEIGHS THE BENEFITS. IN MANY PATIENTS IN THE LOW RISK GROUP FOR THE TEST OF ANY SORT OR UNNECESSARY, HOWEVER HE SHOULD DISCUSS THIS FURTHER WITH HIS GENERAL PRACTITIONER WHO WILL UNDERSTAND THE MEDICAL AND PERSONAL BACKGROUNDS BETTER. BECAUSE WE HAVE NEVER DECLARED YOU" NO RISK" WE WOULD SUGGEST. 1 RETURNING FOR MEDICAL REVIEW IF YOU HAVE FURTHER EPISODES OF CHEST PAIN/ARM PAIN OR OTHER CONCERNING SYMPTOMS LIKE DIZZINESS, COLLAPSE, PALPITATIONS OR SHORTNESS OF BREATH. 2. FOLLOWING UP WITH YOUR LOCAL DOCTOR WHO WILL CONSIDER THE NEED FOR FURTHER TESTING AND WILL ALSO ENSURE THAT ANY MODIFIABLE RISK FACTORS YOU MAY HAVE FOR HEART DISEASE ARE OPTIMALLY MANAGED. PATIENT WILL BE DISCHARGED IN STABLE CONDITION AT THE MOMENT DISCHARGE PATIENT STATES , NO CHEST PAIN Referrals: ROJELIO RANDOLPH DO (PCP) Time of Disposition: 15:06 RYNE MOSELEY MD Sep 26, 2024 15:02
[2024-09-26 15:28] VITALS: BP 115/55; RESP 16; O2SAT 97
== END 2024-09-26 14:30 | disposition home or self-care (01) ==
LOC: EDH 12:29
DX: I10 Essential (primary) hypertension (principal); E11.9 Type 2 diabetes mellitus without complications; E78.00 Pure hypercholesterolemia, unspecified; J45.909 Unspecified asthma, uncomplicated; Z79.82 Long term (current) use of aspirin; Z79.84 Long term (current) use of oral hypoglycemic drugs; Z79.899 Other long term (current) drug therapy; Z95.810 Presence of automatic (implantable) cardiac defibrillator
CPT/HCPCS: 36415; 71045; 80048; 81003; 83735; 84484; 85025; 93005; 99285

== ENCOUNTER 2025-02-07 10:36 | Emergency (ER) | payer OTHER, MEDICAID ==
[~2025-02-07] VITALS: Ht 152.4 cm; Wt 47.2 kg
[2025-02-07 10:38] VITALS: BP 217/106; PULSE 66; RESP 16; TEMP 97.6
--- NOTE | 2025-02-07 11:15 | ERN ---
General Chief Complaint: Mechanical Fall Stated Complaint: FALL Time Seen by MD: 10:53 Source: patient History of Present Illness Initial Comments The patient is a 89-year-old female who came to the ER after a fall. As per the patient, she came to the hospital to get her GI scan done for which she was NPO and tripped in the lobby and fell therefore she was brought to the ER. The patient said that they did not lose consciousness or felt dizzy. She fell face- first and hurt her head and had an abrasion on her lip Timing/Duration: 1/2 hour Severity: mild Allergies: Coded Allergies: No Known Drug Allergies (Verified Allergy, Unknown, 04/18/19) Home Meds Active Scripts Levofloxacin (Levofloxacin) 500 Mg Tablet, 1 TAB PO DAILY for 7 Days, #7 TAB 0 Refills Prov:RADHA BUNN BENEFITS ANALYST 12/20/24 Prednisone (Prednisone) 20 Mg Tablet, 40 MG PO DAILY for 7 Days, #7 TAB Prov:RADHA BUNN BENEFITS ANALYST 12/20/24 Benzonatate (Tessalon Perles) 100 Mg Cap, 100 MG PO TID for cough, #30 CAP 0 Refills Prov:JOSE C DENG PAC 09/03/24 Clonidine HCl (Catapress) 0.1 Mg Tab, 0.2 MG PO Q6H PRN for IF SBP GREATER THAN 180, #60 TAB 0 Refills Prov:SHELLEY VITAL AGAP 05/20/24 Amlodipine Besylate/Benazepril (Lotrel 5-10 mg) 5 Mg-10 Mg Capsule, 1 EACH PO DAILY22, #30 CAP 1 Refill Prov:SHELLEY VITAL [facility] 05/20/24 Reported Medications Albuterol Sulfate (Ventolin Hfa/Proventil Hfa/Proair Hfa) 90 Mcg Puff, 2 PUFF IH Q4HPRN PRN for wheezing for 30 Days, #18 GM 0 Refills 12/19/24 Guaifenesin/Dextromethorphan (Guaifenesin-Dm 100-10 mg/5 ml) 100 Mg-10 Mg/5 Ml Liquid, 10 ML PO Q6HPRN PRN for cough 12/19/24 Pantoprazole Sodium (Pantoprazole Sodium) 40 Mg Tablet.dr, 1 TAB PO DAILY for 30 Days, #30 TAB 0 Refills 12/19/24 Pravastatin Sodium (Pravastatin Sodium) 40 Mg Tablet, 1 TAB PO HS for 30 Days, #30 TAB 0 Refills 12/19/24 Fluticasone/Umeclidin/Vilanter (Trelegy Ellipta 100-62.5-25) 100-62.5 Blst.w.dev, 1 PUFF IH DAILY for 30 Days, #1 EACH 0 Refills 05/19/24 Trazodone HCl (Trazodone HCl) 100 Mg Tablet, 1 TAB PO HS for 30 Days, #30 TAB 0 Refills 05/19/24 Metformin HCl (Metformin HCl) 1,000 Mg Tablet, 1 TAB PO BID for 30 Days, #60 TAB 0 Refills 05/19/24 Past Medical History Past Medical History: Diabetes-Type II, High Cholesterol, Hypertension Past Surgical History: Cholecystectomy, Pacer/AICD Family History Family History: Negative Social History Social History: Negative, Lives with family Female( History) History: Not Applicable Musculoskeletal: (+) other documentation Skin: (+) abrasion Physical Exam General Appearance: (+) no apparent distress Orientation: (+) alert, (+) oriented x 3 Head/Face Trauma: No Ear, Nose, Throat Comment The patient fell face 1st on the floor and the bruise her upper lip Respiratory: (+) chest non-tender MDM MDM: Differential diagnosis: Rationale: Tests considered and ordered secondary to shared decision making include: Previous outside records reviewed: Old ER visits. Risk of complication and/or morbidity or mortality of patient management: None Medications-Per medication reconciliation Need for hospitalization: Patient does not meet criteria for hospitalization. Need for emergency major/minor surgery: No There are no social concerns with this patient. Prescription drug management Prescriptions will include symptomatic care Patient's prior external medical records from other ER visits were reviewed by me as indicated. Prior testing and results from previous visits were reviewed. Prior tests were taken into account with medical decision making and resource utilization, independent historian/historians were used to obtain complete medical history. I independently interpreted the test that were performed, results were reviewed by me and considered findings on radiology if ordered. Medical management and examination interpretation discussions were had by me with other qualified healthcare professionals as indicated for the patient's care. ED Course Orders Procedure Category Date Status Time Ketorolac PHA 02/07/25 Complete Tromethamine 30mg/Ml 11:30 Hydrocodone/Apap PHA 02/07/25 Complete 5/325 ([place] 5/325mg) 11:30 Current Medications Medications (Trade) Dose Ordered Sig/Theo Route PRN Reason Start Time Stop Time Status Last Admin Dose Admin Acetaminophen/ Hydrocodone Bitart (NORco 5/325MG) 1 tab ONCE ONCE PO 02/07/25 11:30 02/07/25 11:31 DC 02/07/25 11:51 Ketorolac Tromethamine (toRADol) 30 mg ONCE ONCE IVP 02/07/25 11:30 02/07/25 11:25 DC Vital Signs Date Time Temp Pulse Resp B/P (MAP) Pulse Ox O2 Delivery O2 Flow Rate FiO2 02/07/25 10:38 97.5 66 16 217/106 97 Room Air 0 DX & DISP Disposition: Discharge Departure Impression: Primary Impression: Fall Condition: Stable Referrals: ROJELIO RANDOLPH DO (PCP) FLASH POOLE MD Feb 07, 2025 11:15 YOVANA ALEXANDRE MD Feb 07, 2025 12:59
[2025-02-07] MEDS: HYDROcodone/APAP 5/325 1 TAB TABLET PO ONE (11:51)
== END 2025-02-07 13:16 | disposition home or self-care (01) ==
LOC: EDH 10:36
DX: S00.531A Contusion of lip, initial encounter (principal); E11.9 Type 2 diabetes mellitus without complications; E78.00 Pure hypercholesterolemia, unspecified; I10 Essential (primary) hypertension; Z79.52 Long term (current) use of systemic steroids; Z79.899 Other long term (current) drug therapy; Z79.84 Long term (current) use of oral hypoglycemic drugs; Z90.49 Acquired absence of other specified parts of digestive tract; Z95.810 Presence of automatic (implantable) cardiac defibrillator; W01.0XXA Fall on same level from slipping, tripping and stumbling without subsequent striking against object, initial encounter; Y93.89 Activity, other specified; Y92.89 Other specified places as the place of occurrence of the external cause; Y99.8 Other external cause status
CPT/HCPCS: 74240; 99283

== ENCOUNTER → 2025-02-07 | Outpatient (CLI) | payer OTHER, MEDICAID ==
[~2025-02-07] MED LIST changes: -AEC81 PO; -ALBU8.5H8 IH; +ALBUHFA IH; -AZIT250T9 PO; -CALC-1290 PO; -CALC-866 PO; -ESOM40CA66 PO; -FURO20TA6 PO; +GUAI5SYR10 PO; -HYDR25 PO; +LEVO-70 PO; -LOSA100T59 PO; -MONT-39 PO; -MULT-1367 PO; +PANT40TA54 PO; -POTA10CA95 PO; +PRED20TA3 PO
--- NOTE | 2025-02-07 12:01 | HMCIMG ---
DOUBLE CONTRAST UPPER GI SERIES: CLINICAL HISTORY: Early satiety Finding: The study was performed using provocative maneuvers After swallowing effervescent crystal and thick barium, there is no definite intrinsic or extrinsic lesion seen in the esophagus. There is grade 2 esophageal reflux. There is no hiatal hernia identified. The stomach is normal in size, shape, and configuration. The rugal folds appear to be normal. The duodenal bulb, duodenal sweep, and upper jejunum appear to be normal. There is a prominent diverticulum seen at the fourth portion of the duodenum. Fluoroscopy time: 0.8 minute . 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
== END | disposition home or self-care (01) ==
LOC: RAH 08:58
PROVIDERS: ATTEND Internal Medicine
DX: K21.9 Gastro-esophageal reflux disease without esophagitis (principal); K57.30 Diverticulosis of large intestine without perforation or abscess without bleeding; R68.81 Early satiety
CPT/HCPCS: 74240